=== PATIENT | female | born 2000 | race Caucasian/White ===

== ENCOUNTER 2024-01-01 10:18 | Outpatient (CLI) | payer BC, SELFPAY ==
--- NOTE | ~2024-01-01 | US_ITS ---
EXAMINATION: US OB <= 14 weeks fetus DATE: 01/01/2024 10:43 INDICATION: Uncertain dating of a second trimester TECHNIQUE: Real-time ultrasound of the pelvis was performed. The interpreting radiologist was not pre sent for the study. COMPARISON: None. FINDINGS: There is a single living fetus in vertex presentation. The placenta is posterior with caudal margin 3.3 cm from the internal cervical os. The region of the external cervical os is not clearly visualize d precluding accurate measurement of cervical length. heart rate is 150 beats per minute (bpm). The amniotic fluid volume is subjectively normal. The following biometric data were obtained: BPD: 3.2 cm -> 15 weeks 6 days Head circumference: 11.7 cm -> 15 weeks 5 days Abdominal circumference: 9.6 cm -> 15 weeks 5 days Femur length: 1.7 cm -> 15 weeks 0 days These measurements are concordant. Head circumference to abdominal circumference ratio: 1.22 (normal range 1.06-1.36). Estimated weight: 124 g (+/-) 19 g or 4 oz. (+/-) 1 oz. IMPRESSION: 1. Single living fetus in vertex presentation with heart rate of 150 bpm. 2. Gestational age by ultrasound of 15 weeks 4 day(s) +/- 1 week(s) 1 day(s) with ultrasound estimate d date of delivery (ODILIA) of the. Estimated weight is 12th percentile by Hadlock criteria w hen 06/17/2024 is used as the ODILIA. Please correlate with clinical information or earlier ultrasounds fo r most accurate ODILIA. Reviewed, dictated and finalized at location B. TAILER IMPRESSION: 1. Single living fetus in vertex presentation with heart rate of 150 bpm. 2. Gestational age by ultrasound of 15 weeks 4 day(s) +/- 1 week(s) 1 day(s) wi th ultrasound estimated date of delivery (ODILIA) of the. Estimated jose ght is 12th percentile by Hadlock criteria when 06/17/2024 is used as the ODILIA. Pl ease correlate with clinical information or earlier ultrasounds for most accura te ODILIA.
== END 2024-01-01 10:19 | disposition home or self-care (01) ==
LOC: MICIMG 10:19
PROVIDERS: PCP Nurse Practitioner Women's Health; Visit Provider Nurse Practitioner Women's Health
DX: Z36.87 Encounter for antenatal screening for uncertain dates (principal); Z3A.15 15 weeks gestation of pregnancy
CPT/HCPCS: 76801

== ENCOUNTER 2024-02-13 13:18 | Outpatient (CLI) | payer BC, MEDICAID, SELFPAY ==
--- NOTE | ~2024-02-13 | US_ITS ---
EXAMINATION: US OB /maternal detail DATE: 02/13/2024 13:55 INDICATION: survey TECHNIQUE: Multiple obstetric sonographic images performed. FINDINGS: No prior studies for comparison. There is a single living fetus in vertex presentation. The placenta is posterior without placenta pr evia. Amniotic fluid volume is subjectively normal. Cervical length is 3.4 cm. Cervical length is 3.4 cm. cardiac activity and movement is noted with a heart rate of 139 beats per minute. The following anatomy was identified as normal: 4 chamber heart 3 vessel cord cord insertion kidneys urinary bladder stomach spine diaphragm ventricles cisterna magna cerebellum The following biometric data were obtained: BPD: 52mm corresponds to gestational age 21 weeks 6 days. Head circumference: 195 mm corresponds to gestational age 21 weeks 5 days. Abdominal circumference: 163 mm corresponds to gestational age 21 weeks 2 days. Femur length: 35 mm corresponds to gestational age 20 weeks 6 days. Head circumference to abdominal circumference ratio: 1.2 (normal range for expected gestational age i s 1.06-1.24). Estimated weight: 406 grams +/- 61 grams using Hadlock method, 20.2%. IMPRESSION: 1: Single living intrauterine with an estimated gestational age of 21weeks 5days by initial ultrasound measurements, with an EDC of 06/20/2024 in vertex presentation. 2. Normal survey. Reviewed, dictated and finalized at location B. NCE EDUCATION PROFESSOR IMPRESSION: 1: Single living intrauterine with an estimated gestational age of 21 weeks 5days by initial ultrasound measurements, with an EDC of 06/20/2024 in marie pati presentation. 2. Normal survey.
== END 2024-02-13 13:19 | disposition home or self-care (01) ==
PROVIDERS: PCP Obstetrics & Gynecology Gynecology; Visit Provider Obstetrics & Gynecology Gynecology
DX: Z36.9 Encounter for antenatal screening, unspecified (principal); Z3A.21 21 weeks gestation of pregnancy
CPT/HCPCS: 76805

== ENCOUNTER 2024-04-10 13:40 | Observation (INO) | payer BC, MEDICAID, SELFPAY ==
--- OUTSIDE RECORDS SUMMARY | 2024-04-10 13:49 | XMS_ITS | Referral Summary ---
Author Organization [facility] Address [address] [place] [address] Care Team Providers Care Electrical Machinist Name Role Phone Komal Flores MD Primary Care Provider [phone] Source Comments [facility],non-owned Affiliates and Associated Physician Practices is amultiple site organization consisting of ambulatory clinics and hospital sitesin [place] and [place]. This disclosure is being madepursuant to the Care Everywhere program and may not contain all information available regarding this patient. Last updated 17.[facility] Allergies Active Allergy Reactions Criticality Noted Date Comments Bee Venom Skin Reactions 06/04/2013 Increased redness at site Dexmethylphenidate Other 06/04/2013 Red streaks on face, increased heart rate, facial swelling Medications * Be aware that medications may not be up to date on this document. Alwaysverify current medications with the patient. Medication Sig Dispensed Refills Start Date End Date Status acyclovir (ZOVIRAX) 400 MG tabletIndications:Rash and other nonspecific skin eruption Take 1 tablet by mouth three times a day for 5 days then take one tablet daily x 2 months. 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 (possibly neomycin specimens for viral cx 2 (Jan 2013 and Apr 2013) 06/04/13: HSV PCR and Cx neg no FH cold sores Social History Tobacco Use Types Packs/Day Years Used Date Smoking Tobacco: Never Assessed Sex and Gender Information Value Date Recorded Sex Assigned at Not on file Gender Identity Not on file Sexual Orientation Not on file Last Filed Vital Signs Vital Sign Reading Time Taken Comments Blood Pressure - - Pulse - - Temperature - - Respiratory Rate - - Oxygen Saturation - - Inhaled Oxygen Concentration - - Weight 38.9 kg (85 lb 12.1 oz) 06/04/2013 1:21 P M CDT Height 148.5 cm (4' 10.47 ) 06/04/2013 1:21 PM C DT Body Mass Index 17.64 06/04/2013 1:21 PM CDT Plan of Treatment Not on file Care Teams Electrical Machinist Relationship Specialty Start Date End Date Komal Flores MD [address] [place] [address] PCP - General Pediatrics 06/04/13
--- OUTSIDE RECORDS SUMMARY | 2024-04-10 13:49 | XMS_ITS | Clinical Summary ---
Author Organization [facility] Address [address] [place] [address] Care Team Providers Care Development Associate Name Role Phone Komal Flores MD Primary Care Provider [phone] Source Comments [facility],non-owned Affiliates and Associated Physician Practices is amultiple site organization consisting of ambulatory clinics and hospital sitesin [place], [place], [place] and [place]. This disclosure is being madepursuant to the Care Everywhere program and may not contain all information available regarding this patient. Last updated 17.[facility] Allergies Active Allergy Reactions Criticality Noted Date [...] and Cx neg no FH cold sores Family History Medical History Relation Name Comments Asthma Maternal Grandmother Asthma Mother Miscarriage Mother Acne half-brother Asthma half-brother Eczema half-brother Relation Name Status Comments Maternal Grandmother Mother half-brother Social History Tobacco Use Types Packs/Day Years [...] 06/04/2013 1:21 PM CDT Plan of Treatment Health Maintenance Due Date Last Done Comments PAP SMEAR 2002 HIV SCREENING 2017 HPV VACCINE (1 - 3-dose series) 2017 CHLAMYDIA/GONORRHEA SCREENING 2018 MENINGOCOCCAL (Group B) VACC INE (1 of 2 - Standard) 2018 HEPATITIS C SCREENING 12/03/2020 DTAP/TDAP/TD VACCINES (1 - Tdap) 2021 HEPATITIS B VACCINE (1 of 3 - 19+ 3-dose series) 2021 COVID-19 VACCINE (1 - 2023-2 5 season) 2023 INFLUENZA VACCINE (#1) 2023 DEPRESSION SCREENING 02/11/2024 ZOSTER VACCINE (1 of 2) 2052 HIB VACCINE Aged Out No longer eligi ble based on patient's age to complete this topic MENINGOCOCCAL VACCINE Aged Out No rashida vincenzo eligible based on patient's age to complete this topic PNEUMOCOCCAL VACCINE Aged Out No long er eligible based on patient's age to complete this topic Care Teams Development Associate Relationship Specialty Start Date End Date Komal Flores MD [address] [place] [address] PCP - General Pediatrics 06/04/13
--- OUTSIDE RECORDS SUMMARY | 2024-04-10 13:49 | XMS_ITS | Clinical Summary ---
Author Organization [facility] Address [address] [place] [address] Phone Care Team Providers Care Family And Consumer Education Teacher Name Role Phone Mitchel Woods MD Primary Care Provider [phone] Social History Tobacco Use Types Packs/Day Years Used Date Smoking Tobacco: Never Assessed Comments Unknown Sex and Gender Information Value Date Recorded Sex Assigned at Not on file Legal Sex Female 7:00 PM CDT Gender Identity Not on file Sexual Orientation Not on file Last Filed Vital Signs Vital Sign Reading Time Taken Comments Blood Pressure 130/75 10/15/2021 8:43 PM CDT Pulse 83 10/15/2021 7:03 PM CDT Temperature 35.8 C (96.4 F) 10/15/2021 7:03 PM CDT Respiratory Rate 20 10/15/2021 7:03 PM CDT Oxygen Saturation 100% 10/15/2021 7:03 PM CDT Inhaled Oxygen Concentration - - Weight 45.8 kg (101 lb) 10/15/2021 7:03 PM CDT Height 157.5 cm (5' 2 ) 10/15/2021 7:03 PM CDT Body Mass Index 18.47 10/15/2021 7:03 PM CDT Plan of Treatment Not on file Care Teams Family And Consumer Education Teacher Relationship Specialty Start Date End Date Mitchel [place] [address] PCP - General Internal Medicine 10/15/21
--- OUTSIDE RECORDS SUMMARY | 2024-04-10 13:49 | XMS_ITS | Clinical Summary ---
Author Organization [facility] Address [address] [place] [address] Care Team Providers Care Child & Adolescent Psychiatrist Name Role Phone Carlotta Degroot NP Primary Care Provider [phone] Allergies Active Allergy Reactions Criticality Noted Date Comments Adhesive Tape-Silicones Rash Medium 12/11/2022 Dexmethylphenidate Other (See comments),Unknown,R [place] High 06/04/2013 Red streaks on face, increased heart rate, facial swelling Reaction: UNKNOWN, Venom-Honey Bee Unknown 06/04/2013 Increased redness at site Venom-Wasp Hives Medium 03/14/2018 Medications QUEtiapine (SEROquel) 25 mg tablet Take 1 tablet (25 mg total) by mouth nightly at bedtime. 06/10/2023 Active famotidine (PEPCID) 20 mg tablet Take 1 tablet (20 mg total) by mouth 2 (two) times a day 60 tablet 2 11/19/2023 Active promethazine (PHENERGAN) 25 mg tablet Take 1 tablet (25 mg total) by mouth every 6 (six) hours as needed for nausea or vomiting 30 tablet 11/19/2023 Active aspirin 81 mg chewable tablet Take 1 tablet (81 mg total) by mouth daily 30 tablet 11 12/02/2023 12/02/19 25 Active Active Problems Problem Noted Date Diagnosed Date Marijuana use 12/15/2023 Overview (12/15/2023): 12/15/23- uds positive Low grade squamous intraepit h lesion on cytologic smear cervix (lgsil) 12/15/2023 Overview (12/15/2023): 12/15/23- will plan to repeat pp Encounter for supervision of normal first in first trimester 12/02/2023 Tobacco use 12/02/2023 Assessment & Plan (12/02/2023 3:29 PM CDT): The patient was encouraged to stop smoking. Techniques for smoking cessation were discussed to the patient's level of interest. ADHD 02/21/2023 Anxiety 02/21/2023 Chest pain 02/21/2023 Bipolar disorder 02/21/2023 Overview (12/02/2023): She states she doesn't sleep when she is manic, spends money, very irritable, talks fast, lots of sex. H/o SI She goes through Carlotta Degroot at [facility]. SVT (supraventricular tachycardia) 10/16/2022 Assessment & Plan (12/02/2023 3:22 PM CDT): She has a h/o palpations. She has done holter monitor before The last was about 3 months ago Will see if she can see Dr. Leal during If not, will refer to [facility]. Manic behavior 10/17/2021 Assessment & Plan (12/23/2023 2:19 PM GARDEN EQUIPMENT MECHANIC): She is going to continue on with her Seroquel She was encouraged to continue to follow with her psychiatric provider in case she worsens during Assessment & Plan (10/17/2021 9:54 PM CDT): Agitated, fidgeting, cannot sit, pacing exam room, tearful at times, stream of thoughts talking. Discussed her medications--states that she has not taken in over 1 year. Does not wish to re-engage nor return to psych. Difficult to converse as she is perseverating on vaginal bleeding (most like menses). Very difficult to converse. Verified that she has appt w/SUPERVISOR HARD CANDY 11/20/21. Verified that she will go to our lab as she leaves the appointment and we will have results today or tomorrow. Verified phone number to call results. Severe episode of recurrent major depressive disorder, without psychotic features 03/13/2018 Assessment & Plan (11/02/2020 4:39 PM CDT): Seeing new psychiatrist, Jose F Amaya-had first OV today. Struggles with medication compliance, forgets to take medications. Lack of motivation for school. Continues seeing counselor and feels she benefits from counseling sessions. Denies self harm or thoughts of SI/HI. Assessment & Plan (11/01/2019 9:52 AM CDT): No longer seeing counselor but still sees staff psychologist Adair Yun at [facility] in [place]. MOP unable to control Shauna at this time during appt. Not tearful but flat/blunt affect. Denies thoughts of SI/HI on direct questioning. Assessment & Plan (10/09/2018 10:12 AM CDT): No longer seeing counselor. Still seeing staff psychologist: Adair Yun at [facility] in [place]. Difficulty taking medications per MOP confidentially on phone during appt. Eating disorder, unspecified 08/08/2015 Assessment & Plan (12/02/2023 3:28 PM CDT): Pt denies having this Estimated Date of Delivery Comme nts Yes 06/18/2024 Based on last me nstrual period of 09/12/2023 (Approximate) Resolved Problems Problem Noted Date Diagnosed Date Resolved Date Menorrhagia with regular cycle 08/13/2023 12/02/2023 Assessment & Plan (08/13/2023 12:54 PM CDT): Discussed cycles at length. Recommend Ibuprofen 600 mg q6h 24-48 hours before onset of cycles through day 3 of cycle. She is not interested in hormonal intervention at this time. Discussed warning signs including saturating a pad/hr or passing large clots. Await pelvic ultrasound. Irregular periods/menstrual cycles 11/01/2021 12/02/2023 Assessment & Plan (11/01/2021 2:05 PM CDT): Repeat beta qaunt today. If negatvie, encouraged patient to start BCP as directed for prevention. Continue condom use. Patient aware that serum hCG testing and pelvic ultrasound should not be used as primary means to rule out . Urine test negative 10/16/2021 12/02/2023 Assessment & Plan (10/17/2021 9:49 PM CDT): Concerned that the 2 urine tests are false. Wants blood test. Does not mychart. Verified phone number. Reviewed/discussed ER notes/results from [facility] ER. Stressed need to void after intercourse, push water intake, take/complete abx as ordered. To call/rtc if no improvement w/abx. Complete antibiotic as prescribed Do not hold your urine. Urinate as soon as you feel the need to go Drink plenty of water and fluids. Limit alcohol, caffeine, and citrus juices- They will irritate the bladder Wipe front to back & wear cotton underwear Try emptying your bladder before and after having sexual intercourse If you have severe back, flank, or groin pain with nausea/vomiting or are unable to get comfortable from the pain, please call/rtc or go to ER for further treatment Tylenol/Motrin for pain Hematuria 10/16/2021 12/02/2023 Assessment & Plan (10/17/2021 9:54 PM CDT): Concerned that the 2 urine tests are false. Wants blood test. Does not mychart. Verified phone number. Has not yet started macrobid. Will wait until blood tests are returned. Reviewed need to take abx & push fluids. Body mass index (BMI) less than 19 10/16/2021 12/02/2023 Assessment & Plan (10/17/2021 9:55 PM CDT): BMI=17.41. BMI is acceptable for this patient. Difficult to discuss diet at this time as she cannot discuss anything but vaginal bleeding & possible . Bee sting 11/02/2020 10/17/2021 Assessment & Plan (11/02/2020 4:32 PM CDT): May use topical hydrocortisone cream. Suggested patient take zyrtec daily for the next few days. Reviewed secondary signs of infection or worsening reaction. Common wart 05/08/2020 12/02/2023 Assessment & Plan (05/08/2020 10:39 AM CDT): Cryotherapy to L lateral elbow. Tolerated well. Covered loosely w/bandaid. Aware to not pick at skin/wart. Reviewed red flags. BMI 21.0-21.9, adult 11/01/2019 022 Assessment & Plan (11/02/2020 4:40 PM CDT): Discussed healthy diet and importance of regular physical activity. Assessment & Plan (05/08/2020 10:11 AM CDT): Discussed healthy diet and importance of regular physical activity. BMI is acceptable for this patient. Assessment & Plan (11/01/2019 9:52 AM CDT): Discussed healthy diet and importance of regular physical activity. BMI is acceptable for this patient. Need for Menactra vaccination 11/01/2019 05/08/2020 Assessment & Plan (11/01/2019 9:51 AM CDT): Initially walked out of exam room prior to getting vaccination. MOP went to get Shauna & made her come back. Defiant w/injection. MOP standing in front of door prior to injection. Viral URI with cough 12/25/2018 020 Assessment & Plan (12/25/2018 8:37 AM GARDEN EQUIPMENT MECHANIC): Rapid flu swab: NEGATIVE This looks viral in nature and should run its course without antibiotics in 7-10 days. You will need to take over the counter medications: Advise to use Mucinex and nasal saline to help with congestions and mucus. Add flonase 1 spray per nostril daily for the next 2 weeks. Add Claritin, Mary Ellen or Zyrtec daily for nasal drip Mucinex for chest congestion Sudafed for head/nasal congestion, Dayquil/delsym for cough Drink plenty of fluids. May take Tylenol for pain. Contact the office if not better in a few days or if getting worse. If symptoms worsen or you experience shortness of breath, return to clinic or go to Er. Refused influenza vaccine 12/24/2018 Assessment & Plan (11/02/2020 4:17 PM CDT): Refuses influenza vaccine Assessment & Plan (05/08/2020 9:22 AM CDT): Discussed and the patient refuses immunization today. Educated regarding the need to vaccinate for personal protection and to limit the viruses in the community to protect those most vulnerable. Assessment & Plan (10/31/2019 9:31 PM CDT): Discussed and the patient refuses immunization today. Educated regarding the need to vaccinate for personal protection and to limit the viruses in the community to protect those most vulnerable. Assessment & Plan (12/25/2018 8:37 AM GARDEN EQUIPMENT MECHANIC): Discussed and the patient refuses immunization today. Educated regarding the need to vaccinate for personal protection and to limit the viruses in the community to protect those most vulnerable. Flu-like symptoms 12/24/2018 10/31/2019 Assessment & Plan (12/25/2018 8:37 AM GARDEN EQUIPMENT MECHANIC): NEGATIVE rapid flu swab in office. School physical exam 10/09/2018 021 Assessment & Plan (10/31/2019 9:32 PM CDT): Preventive exam; reviewed recommended preventive screenings and vaccinations. Extensive discussion regarding HPV vaccination. Encouraged annual flu vaccine. Wear sunscreen/protective clothing when outdoors. Avoid tobacco, alcohol, and illicit drugs. Always wear a seatbelt. Reviewed safe sex practices. Anticipatory guidelines for teenagers: -healthy dietary habits. -reduction of injuries through helmets for bicycle/motorcycle and car seatbelts -regular exercise: 20-30 minutes per day at minimum -good sleep habits: optimal sleep for teen is 8-10 hours per night -sun protection: sunscreen, long sleeves, hats when out in sun. -responsible sexual behaviors: abstinence, condoms. Safe versus safer sex. -avoidance of tobacco, alcohol and illegal substances. -social media: avoid online behaviors that have negative consequences (sexting, sharing personal information/pictures with strangers) -strategies to deal with bullying. Assessment & Plan (10/09/2018 10:16 AM CDT): School physical form completed. See scanned form. No immunizations at this time. Here w/step-father but MOP Torres Dang on phone. 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 (possibly neomycin specimens for viral cx 2 (Jan 2013 and Apr 2013) 06/04/13: HSV PCR and Cx neg no FH cold sores Encounters Date Type Department Care Team Description 03/28/2024 12:45 PM GARDEN EQUIPMENT MECHANIC Office Visit [facility] [place] [address] [place] [address] Jodie Pérez, CONCRETE FENCE BUILDER COVID (Primary Dx) 02/26/2024 2:50 PM GARDEN EQUIPMENT MECHANIC Lab [facility] [address] [place] [address] from Last 3 Months Immunizations Immunization Administration Dates Next Due DTaP 12/24/2007,02/24/2004 DTaP / Hep B / IPV 06/13/2003,04/20/2003, 004 DTaP, Unspecified 12/24/2007, 5,06/13/2003, 004,02/16/2003 Hep A, Pediatric 02/26/2006,07/11/2005 Hep A, Unspecified 02/26/2006,07/11/2005 Hep B, Adolescent or Pediatric 2002 Hep B, Unspecified 06/13/2003, 4,02/16/2003, 003 HiB 02/24/2004, 4,04/20/2003, 004 Hib (HbOC) 02/24/2004, 4,04/20/2003, 004 IPV 12/24/2007, 4,04/20/2003, 004 Influenza, Split 03/17/2012 Influenza, Unspecified 09/02/2022(Deferr ed: Patient Refused),11/10/2020(Deferred: Patient Refused),05/08/2020(Deferred: Patient Refused),11/11/2019(Deferred: Patient Refused),02/10/2019(Deferred: Patient Refused),12/24/2018(Deferred: Patient Refused),12/24/2018(Deferred: Patient Refused),02/10/2018(Deferred: Patient Refused),12/16/2017(Deferred: Patient Refused),10/23/2017(Deferred: Patient Refused),10/23/2017(Deferred: Patient Refused),02/12/2016(Deferred: Patient Refused),02/12/2016(Deferred: Patient Refused),02/12/2016(Deferred: Patient Refused),02/11/2016(Deferred: Patient Refused) MMR 2006,12/20/2003 Meningococcal ACWY, Unspecified 09/16/2014 Meningococcal Conjugate (Menveo) 11/01/2019 Meningococcal MCV4P (Menactra) 09/16/2014 Pneumococcal Conjugate 7-Valent 02/24/2004,04/19,02/16/2003 Pneumococcal Conjugate, Unspecified 02/24/2004,0 04/20/2003,02/16/2003 Tdap 09/07/2013 Varicella 2006,12/20/2003 Surgical History Surgery Date Site/Laterality Comments TONSILLECTOMY AND ADENOIDECTOMY WISDOM TOOTH EXTRACTION Medical History Medical History Date Comments ADHD (attention deficit hype ractivity disorder) Bipolar affective (HCC) Head lice infestation 03/13/2018 Rash and other nonspecific s kin eruption 06/04/2013 Formatting of this note migh t be different from the original. 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 No 12/02/2023 Within the last year, have y ou been humiliated or emotionally abused in other ways by your partner or ex-partner? No Within the last year, have y ou been kicked, hit, slapped, or otherwise physically hurt by your partner or ex-partner? No 12/02/2023 Within the last year, have y ou been raped or forced to have any kind of sexual activity by your partner or ex-partner? No 12/02/2023 AUDIT-C Answer Date Recorded Q1: How often do you have a drink containing alc ohol? Never 09/02/2022 Average Number of Drinks Not on file 023 Frequency of Binge Drinking Not on file 08/11 PHQ-2 Answer Date Recorded PHQ-2 Total Score (If total score is 3 or more points, staff should administer the PHQ-9) 0 09/02/2022 Personal Safety Answer Date Recorded Have you ever been in or are you currently in a harmful physical or emotional relationship or is someone making you feel afraid or unsafe? Denies 11/21/2023 Estimated Date of Delivery Comme nts Yes 06/18/2024 Based on last me nstrual period of 09/12/2023 (Approximate) Sex and Gender Information Value Date Recorded Sex Assigned at Not on file Legal Sex Female 11:47 AM GARDEN EQUIPMENT MECHANIC Gender Identity Female 11/15/2021 7:51 PM CDT Sexual Orientation Straight 11/15/2021 7: 51 PM CDT Obstetrics History Para Term AB IAB SAB Ectopic Multiple Livin g Live Births 1 0 0 0 0 0 0 0 0 0 0 Date Outcome GA Total Labor Labor/2nd/3rd Weight Sex Type Anes PTL Natalia A1 A5 Name Clin Current Summary Episode Dates Number of Fetuses Estimated Date of Delivery 11/17/2023 - Present (04/10/2024) 1 06/18/2024 (set by Cristine Tadeo MA on 12/02/2023 based on Last Menstrual Period on 09/12/2023 (Approximate)) Dating Summary Based On ODILIA GA Diff Last Menstrual Period on 09/12/2023 (Approximate ) 06/18/2024 Working Ultrasound on 11/14/2023 06/19/2024 -1d GA:8w6d Overview and Plan :[place] Support person:Antonio CEDENO Delivery Plans Post-Delivery Plans Planned delivery method:Vaginal Feeding intentions:Breast Milk Acceptable blood products:All Overview ACP- Torres Dang- mom Antonio Hank- PAO Vitals Pregravid Weight Height TWG (As of 04/10/2024) Pregrav id BMI 160 cm (5' 3 ) Notes Progress Notes - Initial Pre - 12/02/2023 - GA:11w4d 12/02/2023 - 11w4d - Vaishali Drake MD Images from the original note were not included. Initial OB Visit Initial Visit (Patient is here for initial OB visit. Patient is 11.5 weeks. /Patient stated she did go the ER at [facility] 2 weeks ago for an elevated HR. At the ER they did recommend that she see one and that she wear a holter monitor. Patient states she does have a heart condition called SVT. Patient states since that time she has felt fine. ) Subjective: Shauna Harper is a 23 y.o., at 11w3d , based on 1st trimester U/S for initial visit. Morning sickness is better She is still taking her seroquel Menstrual History: Patient's last menstrual period was 09/12/2023 (approximate). Sexual History: OB History 1 Para 0 Term 0 0 AB 0 Living 0 SAB 0 IAB 0 Ectopic 0 Multiple 0 Live Births 0 # Outcome Date GA Labor/2nd Weight Sex Type Anes PTL Lv A1 A5 1 Current Objective: BP 118/70 (BP Location: Left arm, Patient Position: Sitting) Ht 160 cm (5' 3 ) Wt 118 lb 12.8 oz (53.9 kg) LMP 09/12/2023 (Approximate) BMI 21.04 kg/m Physical OB Exam: Last filed by Vaishali Drake MD on 12/23/2023 2:19 PM General Physical Exam HEENT: normal Heart: normal Skin: normal Thyroid: normal Lungs: normal Extremities: normal Lymph Nodes: normal Breasts: normal Neurological: normal grossly Abdomen: normal Pelvic Exam Vulva: normal Vagina: normal Cervix: normal Uterus: 10-12 weeks Adnexa: normal Rectum: normal Spines: average Subpubic Arch: normal See flow sheet for gestation -specific examination and vitals. Assessment: Patient is a 23 y.o., at 11w5d, size = dates. Diagnoses and all orders for this visit: Encounter for supervision of normal first in first trimester (Primary) - Vitamin D 25 hydroxy; Future - Varicella Zoster IgG antibody Blood; Future - Type and screen; Future - Rubella IgG antibody Blood; Future - RPR Blood; Future - HIV 1/2 Antibody plus p24 Antigen Blood; Future - Hepatitis C antibody Blood; Future - Hepatitis B Surface Antigen Blood; Future - CBC with auto differential; Future - Drug Monitoring with Confirmation, Urine; Future - Urine culture Urine, clean voided; Future - Pap, reflex HPV; Future - N. gonorrhoeae/C. trachomatis Amplification Thin prep-Endocervical; Future SVT (supraventricular tachycardia) (HCC) Assessment & Plan: She has a h/o palpations. She has done holter monitor before The last was about 3 months ago Will see if she can see Dr. Leal during If not, will refer to [facility]. Other disorder of eating Assessment & Plan: Pt denies having this Tobacco use Assessment & Plan: The patient was encouraged to stop smoking. Techniques for smoking cessation were discussed to the patient's level of interest. Manic behavior (HCC) Assessment & Plan: She is going to continue on with her Seroquel She was encouraged to continue to follow with her psychiatric provider in case she worsens during Other orders - aspirin 81 mg chewable tablet; Take 1 tablet (81 mg total) by mouth daily - N. gonorrhoeae/C. trachomatis Amplification - Drug Monitoring Template Plan: -dating US completed previously -PNL ordered. We will discuss at her next visit. -To start BASA - std testing done today. The results will go to the portal. If she doesn't see them in a week, to call the office. -NOB packet reviewed with the pt and her questions were answered. They would like to do cell free dna testing and carrier screening. To gain between 25-35 pounds for the Diet and exercise discussed. To vitamins once morning sickness is better. Call schedule reviewed. Visits with Mariam discussed. Follow up in 4 weeks. Vaishali Drake MD 12/02/2023 EN EQUIPMENT MECHANIC Progress Notes - Clinical [place] pport - 11/19/2023 - GA:9w5d 11/19/2023 - 9w5d - Kerry Shankar MA Pt came in for nurse visit to check weight and ketones. Ketones were negative and weight was 119.6 lb. Previous wt was 120 lb. Pt requesting phenergan. Pt advised to take 20 mg of OTC Pepcid to help with dry heaving. See other telephone encounters and messages. Last Filed Vital Signs Vital Sign Reading Time Taken Comments Blood Pressure 116/64 03/28/2024 12:44 PM GARDEN EQUIPMENT MECHANIC Pulse 79 03/28/2024 12:44 PM GARDEN EQUIPMENT MECHANIC Temperature 36.6 C (97.9 F) 03/28/2024 12:44 PM GARDEN EQUIPMENT MECHANIC Respiratory Rate 18 03/28/2024 12:4 4 PM GARDEN EQUIPMENT MECHANIC Oxygen Saturation 99% 03/28/2024 12: 44 PM GARDEN EQUIPMENT MECHANIC Inhaled Oxygen Concentration - - Weight 61.1 kg (134 lb 12.8 oz) 025 12:44 PM GARDEN EQUIPMENT MECHANIC Height 157.5 cm (5' 2 ) 03/28/2024 12:4 4 PM GARDEN EQUIPMENT MECHANIC Body Mass Index 24.66 03/28/2024 12:44 PM GARDEN EQUIPMENT MECHANIC Plan of Treatment Health Maintenance Due Date Last Done Comments HPV Vaccines (1 - 3-dose series) 2017 Meningococcal B Vaccine (1 o f 2 - Standard) 2018 Regular Well Visit/Exam 18-64 2020 Depression Screening 09/03/2023 09/02/2022, 11/01/2021, 10/16/2021, Additional history exists DTaP/Tdap/Td Vaccine (7 - Td or Tdap) 09/08/2023 09/07/2013, 12/24/2007, 12/24/2007, Additional history exists Covid-19 Vaccine (2 - 2023-2 5 season) 2023 09/17/2020 Influenza Vaccine (#1) 2023 03/17/2012 Cervical Cancer Screening 12/01/2024 12/02/2023 Chlamydia and Gonorrhea (GC/ CT) Screening 12/01/2024 12/02/2023, 08/13/2023, 11/13/2021, Additional history exists Hepatitis B Screening Completed 06/13/2003 , 06/13/2003, 04/20/2003, Additional history exists Pneumococcal vaccine <65 Completed 005, 02/24/2004, 04/20/2003, Additional history exists Varicella Vaccines Completed 2006, 12/20/2003 Meningococcal Vaccine Completed 11/01/2019 , 09/16/2014, 09/16/2014 Hepatitis C Screening Completed 02/26/2024 Procedures Procedure Name Priority Date/Time Associated Diagnosis Comments POC INFLUENZA A/B, COVID-19 ANTIGEN Routine 03/28/2024 1:01 PM GARDEN EQUIPMENT MECHANIC COVID POCT RAPID STREP Routine 03/28/2024 1:01 PM GARDEN EQUIPMENT MECHANIC COVID ANTIBODY SCREEN Routine 02/26/2024 2:51 PM GARDEN EQUIPMENT MECHANIC DIFFERENTIAL AUTO Routine 02/26/2024 2:5 1 PM GARDEN EQUIPMENT MECHANIC FERRITIN Routine 02/26/2024 2:51 PM GARDEN EQUIPMENT MECHANIC HEMOGLOBIN A1C Routine 02/26/2024 2:51 PM GARDEN EQUIPMENT MECHANIC VITAMIN D 25 HYDROXY Routine 02/26/2024 2:51 PM GARDEN EQUIPMENT MECHANIC ABO/RH Routine 02/26/2024 2:51 PM GARDEN EQUIPMENT MECHANIC CBC WITH AUTO DIFFERENTIAL Routine 02/26/2024 2:51 PM GARDEN EQUIPMENT MECHANIC HEPATITIS C ANTIBODY Routine 02/26/2024 2:51 PM GARDEN EQUIPMENT MECHANIC HIV 1/2 ANTIBODY PLUS P24 ANTIGEN Routine 02/26/2024 2:51 PM GARDEN EQUIPMENT MECHANIC RUBELLA IGG Routine 02/26/2024 2:51 PM GARDEN EQUIPMENT MECHANIC HEPATITIS B SURFACE ANTIGEN Routine 02/26/2024 2:51 PM GARDEN EQUIPMENT MECHANIC RPR Routine 02/26/2024 2:51 PM GARDEN EQUIPMENT MECHANIC N. GONORRHOEAE/C. TRACHOMATIS AMPLIFICATION Routine 12/02/2023 4:42 PM CDT PAP, REFLEX HPV Routine 12/02/2023 4:42 PM CDT Encounter for supervision of normal first in first trimester from Last 3 Months or Most Recently Relevant to Health Maintenance Results * (ABNORMAL) POC Influenza A/B, COVID-19 antigen (03/28/2024 1:01 PM GARDEN EQUIPMENT MECHANIC) Influenza A Ag, POC Negative Negative [facility] Influenza B Ag, POC Negative Negative [facility] COVID-19 Ag POC Positive(A) Presumptive Negative, Invalid [facility] Nasal 03/28/2024 1:01 PM GARDEN EQUIPMENT MECHANIC Jodie Pérez CONCRETE FENCE BUILDER POINT OF CARE TEST ORDERABLES Final Result Performing Organization Address City/[facility] Co de Phone Number [place] [address] [place] [address], [place] * POCT rapid strep A (03/28/2024 1:01 PM GARDEN EQUIPMENT MECHANIC) Rapid Strep A, POC Negative Negative [facility] Swab 03/28/2024 1:01 PM GARDEN EQUIPMENT MECHANIC Jodie Pérez CONCRETE FENCE BUILDER POINT OF CARE TEST ORDERABLES Final Result Performing Organization Address [facility] de Phone Number [place] [address] [place] [address], [place] * (ABNORMAL) Differential, auto (02/26/2024 2:51 PM GARDEN EQUIPMENT MECHANIC) Pathologist [facility] Neutrophil abs 12.3(H) 1.5 - 6.5 K/cumm Comment:Testing performed by : [facility], [address] [place] [address]., [address] Imm gran abs 0.4(H) 0.0 - 0.1 K/cumm [facility] ([place]) Comment:Testing performed by : [address], [address] Lymphocyte abs 2.1 0.8 - 3.3 K/cumm [facility] ([place]) Comment:Testing performed by : [facility], [address] [place] [address], [address] Monocyte abs 0.6 0.2 - 0.8 K/cumm [facility] ([place]) Comment:Testing performed by : [address], [address] Eosinophil abs 0.2 0.0 - 0.5 K/cumm [facility] ([place]) Comment:Testing performed by : [address], [address] Basophil abs 0.1 0.0 - 0.1 K/cumm [facility] ([facility]) Comment:Testing performed by : [facility], [address] [place] [address]., [address] Neutrophil pct 78.3 % [facility] ([facility]) Comment: Interpretive Data Percent cell count reference ranges are not reported, since discordance with absolute values may lead to misinterpretation of CBC data. Current Interpretive Data was last revised on 2017. Testing performed by: [facility], [address] [place] [address]., [address] Imm gran pct 2.4 % [facility] ([facility]) Comment: Interpretive Data Percent cell count reference ranges are not reported, since discordance with absolute values may lead to misinterpretation of CBC data. Current Interpretive Data was last revised on 2017. Testing performed by: [address] [address] Lymphocyte pct 13.6 % [facility] ([facility]) Comment: Interpretive Data Percent cell count reference ranges are not reported, since discordance with absolute values may lead to misinterpretation of CBC data. Current Interpretive Data was last revised on 2017. Testing performed by: [facility], [address] [place] [address]., [address] Monocyte pct 4.0 % [facility] ([facility]) Comment: Interpretive Data Percent cell count reference ranges are not reported, since discordance with absolute values may lead to misinterpretation of CBC data. Current Interpretive Data was last revised on 2017. Testing performed by: [address] [address] Eosinophil pct 1.3 % [facility] ([facility]) Comment: Interpretive Data Percent cell count reference ranges are not reported, since discordance with absolute values may lead to misinterpretation of CBC data. Current Interpretive Data was last revised on 2017. Testing performed by: [address] [address] Basophil pct 0.4 % [facility] ([facility]) Comment: Interpretive Data Percent cell count reference ranges are not reported, since discordance with absolute values may lead to misinterpretation of CBC data. Current Interpretive Data was last revised on 2017. Testing performed by: [address] [address] Blood 02/26/2024 2:51 PM GARDEN EQUIPMENT MECHANIC 02/26/2024 2:51 PM GARDEN EQUIPMENT MECHANIC Dorita Valdes MD LAB BLOOD ORDERABLES Fin al Result [facility] ([place]) 1 [facility] [place] [address] * HIV 1/2 Antibody plus p24 Antigen Blood (02/26/2024 2:51 PM GARDEN EQUIPMENT MECHANIC) Pathologist [facility] HIV 1/2 ab + p24 ag Nonreactive Nonreactive Comment: Nonreactive for HIV-1 antigen and HIV-1/HIV-2 antibodies. No laboratory evidence of HIV infection. If acute HIV infection is suspected, consider testing for HIV-1 RNA. Testing performed by: [address], [address] Blood 02/26/2024 2:51 PM GARDEN EQUIPMENT MECHANIC 02/26/2024 2:54 PM GARDEN EQUIPMENT MECHANIC us Dorita Valdes MD LAB MICROBIOLOGY - GENER AL ORDERABLES Final Result Performing Organization Address [facility] Co de Phone Number [facility] ([place]) [address] [place] [address] * (ABNORMAL) CBC with auto differential (02/26/2024 2:51 PM GARDEN EQUIPMENT MECHANIC) [facility] WBC 15.7(H) 3.8 - 9.9 K/cumm Comment:Testing performed by : [facility], [address] [place] [address]., [address] Hgb 10.9(L) 11.9 - 15.5 g/dL [facility] ([facility]) Comment:Testing performed by : [address] [address] Hct 34.0(L) 35.6 - 45.5 % [facility] ([facility]) Comment:Testing performed by : [address] [address] Plt 291 150 - 400 K/cumm [facility] ([facility]) Comment:Testing performed by : [address], [address] MPV 10.3 9.1 - 12.3 fL [facility] ([facility]) Comment:Testing performed by : [address], [address] RBC 3.42(L) 3.90 - 5.20 M/cumm [facility] ([facility]) Comment:Testing performed by : [address], [address] MCV 99.4(H) 81.3 - 96.4 fL [facility] ([facility]) Comment:Testing performed by : [address], [address] MCH 31.9 27.1 - 33.3 pg [facility] ([facility]) Comment:Testing performed by : [address], [address] MCHC 32.1(L) 32.3 - 35.7 g/dL [facility] ([facility]) Comment:Testing performed by : [address], [address] RDW CV 12.9 11.1 - 14.9 % [facility] ([facility]) Comment:Testing performed by : [address], [address] RDW SD 47.0 35.7 - 48.1 fL [facility] ([facility]) Comment:Testing performed by : [address], [address] NRBC abs 0.00 0.00 - 0.01 K/cumm [facility] ([facility]) Comment:Testing performed by : [address], [address] Blood 02/26/2024 2:51 PM GARDEN EQUIPMENT MECHANIC 02/26/2024 2:51 PM GARDEN EQUIPMENT MECHANIC us Dorita Valdes MD LAB BLOOD ORDERABLES Fin al Result [facility] ([place]) 1 [facility] [place] [address] * Hepatitis C antibody Blood (02/26/2024 2:51 PM GARDEN EQUIPMENT MECHANIC) Pathologist [facility] Hep C Ab Nonreactive Nonreactive Comment: Interpretive Data Nonreactive: Antibodies to HCV not detected. Does NOT exclude the possibility of recent exposure to HCV. Equivocal: Equivocal for HCV antibodies. Supplemental molecular testing will be automatically performed to determine infection status in accordance with current CDC screening recommendations. Reactive: Positive for HCV antibodies. This may represent current or past HCV infection. Supplemental molecular testing will be automatically performed to determine current infection status in accordance with current CDC screening recommendations. Interpretive data was last revised on 2019. Testing performed by: [facility], [address] [place] [address], [place]., [address] Blood 02/26/2024 2:51 PM GARDEN EQUIPMENT MECHANIC 02/26/2024 2:54 PM GARDEN EQUIPMENT MECHANIC Dorita Valdes MD LAB MICROBIOLOGY - GENER AL ORDERABLES Final Result Performing Organization Address City/[facility]/ZIP Co de Phone Number [facility] ([place]) 1 [facility] [place] [address] * ABO/Rh (02/26/2024 2:51 PM GARDEN EQUIPMENT MECHANIC) Pathologist [facility] ABO/Rh O Positive Blood 02/26/2024 2:51 PM GARDEN EQUIPMENT MECHANIC 02/27/2024 3:10 PM GARDEN EQUIPMENT MECHANIC Dorita Valdes MD LAB BLOOD BANK TEST ORDE RABLES Final Result Performing Organization Address City/[facility] Co de Phone Number [facility] ([place]) 1 [facility] [place] [address] * Vitamin D 25 hydroxy (02/26/2024 2:51 PM GARDEN EQUIPMENT MECHANIC) Pathologist [facility] Vitamin D 25-OH 46 30 - 80 ng/mL Comment:Testing performed by : [facility], [address] [place] [address], [place]., [address] Blood 02/26/2024 2:51 PM GARDEN EQUIPMENT MECHANIC 02/26/2024 2:54 PM GARDEN EQUIPMENT MECHANIC Dorita Valdes MD LAB BLOOD ORDERABLES Fin al Result [facility] ([place]) 1 [facility] [place] [address] * Rubella IgG antibody Blood (02/26/2024 2:51 PM GARDEN EQUIPMENT MECHANIC) Rubella IgG Reactive Comment: Reactive: Results suggest response to immunization or prior exposure to the virus. Testing performed by: [facility], [address] [place]., [address] Blood 02/26/2024 2:51 PM GARDEN EQUIPMENT MECHANIC 02/27/2024 10:00 AM GARDEN EQUIPMENT MECHANIC us Dorita Valdes MD LAB MICROBIOLOGY - GENER AL ORDERABLES Final Result Performing Organization Address [facility] Co de Phone Number [facility] ([place]) 1 [facility] [place] [address] * RPR Blood (02/26/2024 2:51 PM GARDEN EQUIPMENT MECHANIC) RPR Nonreactive Nonreactive Comment:Testing performed by : [facility], [address] [place] [address]., [address] Blood 02/26/2024 2:51 PM GARDEN EQUIPMENT MECHANIC 02/26/2024 2:53 PM GARDEN EQUIPMENT MECHANIC us Dorita Valdes MD LAB MICROBIOLOGY - GENER AL ORDERABLES Final Result Performing Organization Address City/[facility] Co de Phone Number [facility] ([place]) 1 [facility] [place] [address] * Hepatitis B Surface Antigen Blood (02/26/2024 2:51 PM GARDEN EQUIPMENT MECHANIC) HepBsAg Nonreactive Nonreactive Comment:Testing performed by : [facility], [address] [place] [address], [place]., [address] Blood 02/26/2024 2:51 PM GARDEN EQUIPMENT MECHANIC 02/26/2024 2:54 PM GARDEN EQUIPMENT MECHANIC Dorita Valdes MD LAB MICROBIOLOGY - GENER AL ORDERABLES Final Result [facility] ([place]) [address] [place] [address] * Antibody screen (02/26/2024 2:51 PM GARDEN EQUIPMENT MECHANIC) Lexii, indirect, Gel Interpretation Negative ABSC Blood 02/26/2024 2:51 PM GARDEN EQUIPMENT MECHANIC 02/27/2024 3:10 PM GARDEN EQUIPMENT MECHANIC Dorita Valdes MD LAB BLOOD BANK TEST ORDE RABLES Final Result Performing Organization Address [facility] de Phone Number [facility] ([place]) [address] [place] [address] * Hemoglobin A1c (02/26/2024 2:51 PM GARDEN EQUIPMENT MECHANIC) Hgb A1C 4.9 4.0 - 5.6 % Comment:Testing performed by : [facility], [address] [place] [address]., [address] Estimated Average Glucose 94 mg/dL [facility] ([place]) Comment: The ADA recommends reporting an estimated Average Glucose (eAG) with all Hemoglobin A1c results using the equation derived from a study of 507 normal and diabetic adults. Minority populations were underrepresented and children were not included. (Diabetes Care 31:8407-9108, 2008). The eAG is not equivalent to a fasting glucose. Testing performed by: [facility], [address] [place] [address]., [address] Blood 02/26/2024 2:51 PM GARDEN EQUIPMENT MECHANIC 02/26/2024 2:55 PM GARDEN EQUIPMENT MECHANIC Dorita Valdes MD LAB BLOOD ORDERABLES Fin al Result Performing Organization Address City/[facility] Co de Phone Number [facility] ([place]) [address] [place] [address] * Ferritin (02/26/2024 2:51 PM GARDEN EQUIPMENT MECHANIC) Ferritin 16 15 - 150 ng/mL Comment:Testing performed by : [facility], [address] [facility], [place]., [address] Blood 02/26/2024 2:51 PM GARDEN EQUIPMENT MECHANIC 02/26/2024 2:55 PM GARDEN EQUIPMENT MECHANIC us Dorita Valdes MD LAB BLOOD ORDERABLES Fin al Result [facility] ([place]) 1 [facility] [place], [place] [id number] * (ABNORMAL) Pap, reflex HPV (12/02/2023 4:42 PM CDT) CLINICAL INFORMATION: Stephane Agosto Comment: LMP Stephane Agosto Comment:09/12/2023 Previous Pap Stephane Agosto Comment:NONE GIVEN Prev. Bx Stephane Agosto Comment:NONE GIVEN SOURCE: Stephane Agosto Comment:Cervix, Endocervix Pap, specimen adequacy Stephane Agosto Comment: Satisfactory for evaluation. Endocervical/transformation zone component present. Pap, general categorization (A) Stephane Agosto Comment:Cytology Results: Ep ithelial Cell Abnormality HPV interp (A) Stephane Agosto Comment:Low Grade Squamous I ntraepithelial Lesion (LSIL) COMMENTS Stephane Agosto Comment: This Pap test has been evaluated with computer assisted technology. Suggest clinical correlation and follow-up as clinically appropriate Casino Floor Person [address] Jewel Agosto Comment: PCM, CT(ASCP) CT Screening Location: [place] [address] [place] [address] Pathologist Stephane Agosto Comment: John Ulloa M.D., Board Certified in Anatomic Pathology and Cytopathology. (electronic signature) Comment Stephane Agosto Comment: EXPLANATORY NOTE: The Pap is a screening test for cervical cancer. It is not a diagnostic test and is subject to false negative and false positive results. It is most reliable when a satisfactory sample, regularly obtained, is submitted with relevant clinical findings and history, and when the Pap result is evaluated along with historic and current clinical information. Thin prep 12/02/2023 4:42 PM CDT 12/03/2023 4:33 AM CDT Vaishali Drake MD LAB CYTOLOGY ORDERA BLES Final Result [facility] [address] [place] [address] * N. gonorrhoeae/C. trachomatis Amplification (12/02/2023 4:42 PM CDT) C. trachomatis RNA NOT DETECTED NOT DETECTED [facility] N. gonorrhoeae RNA NOT DETECTED NOT DETECTED [facility] Comment [facility] Comment: The analytical performance characteristics of this assay, when used to test SurePath(TM) specimens have been determined by [employer]. The modifications have not been cleared or approved by the FDA. This assay has been validated pursuant to the CLIA regulations and is used for clinical purposes. For additional information, please refer to https://education.[employer]/faq/RIQ846 (This link is being provided for information/ educational purposes only.) 12/02/2023 4:42 PM CDT 12/03/2023 4:33 AM CDT Vaishali Drake MD LAB MICROBIOLOGY - GENERAL ORDERABLES Final Result Performing Organization Address City/[facility] Co de Phone Number [facility] [address] [place] [address] from Last 3 Months or Most Recently Relevant to Health Maintenance Insurance ANTHEM ACCESS CHOICE BLUE appweevr [place] app[place]evr [place] ANTHEM ACCESS CHOICE [place] CIGNA OPEN ACCESS CIGNA HEALTHCARE Care Teams Child & Adolescent Psychiatrist Relationship Specialty Start Date End Date Carlotta Degroot CONCRETE FENCE BUILDER [address] [place] [address] PCP - General Internal Medicine 11/21/23
--- OUTSIDE RECORDS SUMMARY | 2024-04-10 13:49 | XMS_ITS | Patient Health Record ---
Author Organization [facility] Address [address] [place] [address] Care Team Providers Care Bacteriologist Food Name Role Phone Jimy Amaya Primary Care Provider Allergies Allergen (clinical drug ingredient) Drug/Non Drug Allergy documented on EMR Reaction Allergy Type Onset Date Status dexmethylphenidate Focalin Unknown Drug Allergy Active Bee Sting Unknown Allergy Active Reason For Referral No Information Medications Medication SIG (Take, Route, Fr equency, Duration) Notes Start Date End Date Status OLANZapine 7.5 MG 1 tablet at bedtime. Orally Once a day for 30 day(s) 08/29/2021 Active guanFACINE HCl 2 MG 1 tablet at bedtime Orally Once a day 10/02/2020 Active Ondansetron HCl 4 MG 1 tablet to take wi th olanzapine at bedtime. Orally Once a day for 30 day(s) 08/29/2021 Active busPIRone HCl 30 MG 1 tablet Orally at night 10/02 Active Social History Sex Assigned At : Social History Observation Description Sex Assigned At Female Section Notes: Never . Has 2 step-br others and one half brother. Education: [employer] [place] [employer]. Has been suspended multiple times starting in 7 th grade. Struggles with grades due to missing school. Has IEP. Has a safe plan at school when having anxiety attacks. : no Legal: mother reports hvac/r service technician had been called because she is trying to fight other kids Substance Use: used Marijuana in 7 th grade, last use was yesterday. Smokes day. Trauma: Physical: no Emotional: in relationships. Had been bullied in past Sexual: no Hobbies: likes to Kick Box, state she likes to smoke Never . Has 2 step-br others and one half brother. Education: [place] [employer]. Has been suspended multiple times starting in 7 th grade. Struggles with grades due to missing school. Has IEP. Has a safe plan at school when having anxiety attacks. : no Legal: mother reports hvac/r service technician had been called because she is trying to fight other kids Substance Use: used Marijuana in 7 th grade, last use was yesterday. Smokes day. Trauma: Physical: no Emotional: in relationships. Had been bullied in past Sexual: no Hobbies: likes to Kick Box, state she likes to smoke Never . Has 2 step-br others and one half brother. Education: [employer] [place] [employer] at [employer]. Has been suspended multiple times starting in 7 th grade. Struggles with grades due to missing school. Has IEP. Has a safe plan at school when having anxiety attacks. : no Legal: mother reports hvac/r service technician had been called because she is trying to fight other kids Substance Use: used Marijuana in 7 th grade, last use was yesterday. Smokes day. Trauma: Physical: no Emotional: in relationships. Had been bullied in past Sexual: no Hobbies: likes to Kick Box, state she likes to smoke Problems Problem Type SNOMED Code ICD Code Onset Dates Problem Status W/U Status Risk Notes Problem 887317895 Bipolar disorder, current episode depressed, moderate (F31.32) Active confirmed Problem Bipolar 1 disorder (545802070) Bipolar 1 disorder (F31.9) Active confirmed Problem Bipolar affective disorder, currently manic, moderate (771421834) Bipolar 1 disorder with moderate maryam (F31.12) Active confirmed Plan Of Treatment No Information Insurance Providers Payer Name Payer Address Payer Phone Subscriber Number Group Number Insured Name Patient Relationship to Insured Coverage Start Date Coverage End Date All Savers [address] [address] [place] [address] [id number] [facility] Self - patient is the insured 1 CIGNA [address] [place] [address] [id number] [facility] - patient is the insured 1 Medical (General) History Medical History History ICD Code T & A at age 7 R eye hemorrhage 01/2020 Surgical History Surgery Date(Month/Year) Tonsillectomy and adenoidectomy 2008 Hospitalization History Reason Date(Month/Year) at [facility] 03/2018 OD took #80 celexa pills 2017?
--- OUTSIDE RECORDS SUMMARY | 2024-04-10 13:49 | XMS_ITS | Patient Health Summary ---
Author Organization [facility] Address [address] [place] [address] Care Team Providers Care Coal Bagger Name Role Phone Komal Flores MD Primary Care Provider [phone] Note from [facility],non-owned Affiliates and Associated Physician Practices is amultiple site organization consisting of ambulatory clinics and hospital sitesin [place], [place], [place] and [place]. This disclosure is being madepursuant to the Care Everywhere program and may not contain all information available regarding this patient. Last updated 17.[facility] Allergies * Bee Venom(Skin Reactions) * Dexmethylphenidate(Other) Medications * Be aware that medications may not be up to date on this document. Alwaysverify current medications with the patient. * acyclovir (ZOVIRAX) 400 MG tablet(Started 06/04/2013) Take 1 tablet by mouth three times a day for 5 days then take one tablet daily x 2 months. Active Problems Problem Noted Date Diagnosed Date Nonspecific skin eruption 06/04/2013 Social History Tobacco Use Types Packs/Day Years [...] Mass Index 17.64 06/04/2013 1:21 PM CDT Procedures * VIRAL CULTURE HERPES SIMPLEX(Performed 06/04/2013) Performed for Nonspecific skin eruption * HERPES SIMPLEX 1+2 PCR(Performed 06/04/2013) Performed for Nonspecific skin eruption Results * VIRAL CULTURE HERPES SIMPLEX (06/04/2013 2:08 PM CDT) Final Report SEE NOTE 06/06/2013 6:07 PM CDT [facility] Comment:Culture Negative for Herpes Simplex Virus Prelim Report SEE NOTE 06/06/2013 6:07 PM CDT [facility] Comment:Specimen received an d in progress. Miscellaneous samples (specimen) LESION SPECIMEN / Unknown 06/04/2013 2:08 PM CDT 06/04/2013 2:16 PM CDT Freda Fonseca MD LAB - MICROBIOLOGY O [facility] Performing Organization Address [facility] de Phone Number [facility] [address] [place] [address] * HERPES SIMPLEX PCR (06/04/2013 2:08 PM CDT) Herpes Simplex Virus PCR Not Detected 06/06/2013 1:30 PM CDT [facility] Comment: NOT DETECTED - A negative result does not rule out the presence of PCR inhibitors in the patient specimen or assay specific nucleic acid in concentrations below the level of detection by the assay. INTERPRETIVE INFORMATION: Herpes Simplex Virus by PCR Test developed and characteristics determined by [employer]. See Compliance Statement A: [email or web address] This test is performed pursuant to an agreement with [employer] Source Lesion Swab 06/06/2013 1:30 PM CDT [facility] Miscellaneous samples (specimen) LESION SPECIMEN / Unknown 06/04/2013 2:08 PM CDT 06/04/2013 2:16 PM CDT Freda Fonseca MD LAB - MICROBIOLOGY [facility] Performing Organization Address [facility] Co de Phone Number [address] [place] [address] Care Teams Coal Bagger Relationship Specialty Start Date End Date Komal Flores MD [address] [place] [address] PCP - General Pediatrics 06/04/13
--- OUTSIDE RECORDS SUMMARY | 2024-04-10 13:49 | XMS_ITS | Encounter Summary ---
Author Organization [facility] Address [address] [place] [address] Phone Care Team Providers Care Television Reporter Name Role Phone Mitchel Woods MD Primary Care Provider [phone] Carlotta Degroot NP Primary Care Provider [phone] Encounter Details Date Type Department Care Team (Late st Contact Info) Description 02/06/2020 Ophth Exam [facility] [address] [place] [address] 1st [place] [address] Darrion Robert MD [address] [place], [place] [id number] Social History Tobacco Use Types Packs/Day Years Used Date Smoking Tobacco: Never Smokeless Tobacco: Never Alcohol Use Standard Drinks/Week Comments No 0 (1 standard drink = 0.6 oz pur e alcohol) PHQ-2 Answer Date Recorded PHQ-2 Total Score 0 11/01/2019 Comments No Sex and Gender Information Value Date Recorded Sex Assigned at Not on file Legal Sex Female 11:47 AM FLATWORK SUPERVISOR Gender Identity Female 11/15/2021 7:51 PM CDT Sexual Orientation Straight 11/15/2021 7: 51 PM CDT documented as of this encounter Plan of Treatment Not on file documented as of this encounter Visit Diagnoses Not on filedocumented in this encounter Additional Health Concerns Infection Onset Date Last Indicated Resolved Time COVID: Suspected 03/28/2024 03/28/2024 03/28/2024 1:02 PM FLATWORK SUPERVISOR COVID19 03/28/2024 03/28/2024 04/07/2024 3:07 AM FLATWORK SUPERVISOR documented as of this encounter Eye Exam Visual Acuity Right eye Left eye Near sc 20/20 20/20 Tonometry (Tonopen, 5:21 PM) Right eye Left eye Pressure 19 13 breath holding OD Pupils Dark Light Shape React APD Right eye 5 3 Round Brisk - Left eye 5 3 Round Brisk - Visual Bauer Right eye Left eye Full Full Extraocular Movement Right eye Left eye Full Full External Exam Right eye Left eye External Normal Normal Slit Lamp Exam Right eye Left eye Lids/Lashes Normal tr LL swelling Conjunctiva/Sclera White and quiet inferior virgilio ous JACI Cornea Clear confluent SPEE t emporally, no valeri epi defect Anterior Chamber Deep and quiet Deep and quiet Iris Round and reactive Round and leonardo ctive Lens Clear Clear Vitreous Normal Normal Fundus Exam Right eye Left eye Disc Normal, sharp margin s, no elevation, no pallor Normal, sharp margins, no elevation, no pallor C/D Ratio 0.2 0.2 Macula Normal, flat, no heme Normal, fl at, no heme Vessels Normal Normal Periphery Normal, no heme, att ached 360 w/o RD/RT Normal, no heme, attached 360 w/o RD/RT Care Teams Television Reporter Relationship Specialty Start Date End Date Mitchel Woods MD [address] [place] [address] PCP - General Family Medicine 03/25/17 11/20/23 Carlotta Degroot NP [address] [facility] [place] [address] PCP - General Internal Medicine 11/21/23 documented as of this encounter
--- OUTSIDE RECORDS SUMMARY | 2024-04-10 13:49 | XMS_ITS | Referral Summary ---
Author Organization [facility] Address [address] [place] [address] Care Team Providers Care Quarry Supervisor Dimension Stone Name Role Phone Carlotta Degroot NP Primary Care Provider [phone] Encounters Date Type Department Care Team Description 03/28/2024 12:45 PM ANALYTIC MANAGER Office Visit [facility] [address] [place] [address] Jodie Pérez NP COVID (Primary Dx) 02/26/2024 2:50 PM ANALYTIC MANAGER Lab [facility] [address] [place] [id number] from Last 3 Months Allergies Active Allergy Reactions Criticality Noted Date [...] goes through Carlotta Degroot at [facility]. SVT (supraventricular tachycardia) 10/16/2022 Assessment & Plan (12/02/2023 3:22 PM CDT): She has a h/o palpations. She has done holter monitor before The last was about 3 months ago Will see if she can see Dr. Leal during If not, will refer to [facility]. Manic behavior 10/17/2021 Assessment & Plan (12/23/2023 2:19 PM ANALYTIC MANAGER): She is going to continue on with [...] to converse. Verified that she has appt w/CHILDREN [facility]RARIAN 11/20/21. Verified that she will go to [...] No longer seeing counselor but still sees team psychologist Adair Yun at [facility] in [place]. MOP unable to control Shauna at this time during appt. Not tearful but flat/blunt affect. Denies thoughts of SI/HI on direct questioning. Assessment & Plan (10/09/2018 10:12 AM CDT): No longer seeing counselor. Still seeing team psychologist: Adair Yun at [facility] in [place]. Difficulty taking medications per MOP confidentially on [...] 020 Assessment & Plan (12/25/2018 8:37 AM ANALYTIC MANAGER): Rapid flu swab: NEGATIVE This looks viral [...] vulnerable. Assessment & Plan (12/25/2018 8:37 AM ANALYTIC MANAGER): Discussed and the patient refuses immunization today. Educated regarding the need to vaccinate for personal protection and to limit the viruses in the community to protect those most vulnerable. Flu-like symptoms 12/24/2018 10/31/2019 Assessment & Plan (12/25/2018 8:37 AM ANALYTIC MANAGER): NEGATIVE rapid flu swab in office. School [...] this time. Here w/step-father but MOP Torres Loo on phone. 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 (possibly neomycin specimens for viral cx 2 (Jan 2013 and Apr 2013) 06/04/13: HSV PCR and Cx neg no FH cold sores Immunizations Immunization Administration Dates Next Due DTaP [...] Unspecified 02/24/2004,0 04/20/2003,02/16/2003 Tdap 09/07/2013 Varicella 2006,12/20/2003 Social History Tobacco Use Types Packs/Day Years Used Date Smoking Tobacco: Former Cigarettes S tarted: 2017 Vaping Smokeless Tobacco: Current Comments:Also smokes marijua [...] on file Legal Sex Female 11:47 AM ANALYTIC MANAGER Gender Identity Female 11/15/2021 7:51 PM CDT Sexual Orientation Straight 11/15/2021 7: 51 PM CDT Last Filed Vital Signs Vital Sign Reading Time Taken Comments Blood Pressure 116/64 03/28/2024 12:44 PM ANALYTIC MANAGER Pulse 79 03/28/2024 12:44 PM ANALYTIC MANAGER Temperature 36.6 C (97.9 F) 03/28/2024 12:44 PM ANALYTIC MANAGER Respiratory Rate 18 03/28/2024 12:4 4 PM ANALYTIC MANAGER Oxygen Saturation 99% 03/28/2024 12: 44 PM ANALYTIC MANAGER Inhaled Oxygen Concentration - - Weight 61.1 kg (134 lb 12.8 oz) 025 12:44 PM ANALYTIC MANAGER Height 157.5 cm (5' 2 ) 03/28/2024 12:4 4 PM ANALYTIC MANAGER Body Mass Index 24.66 03/28/2024 12:44 PM ANALYTIC MANAGER Plan of Treatment Not on file Procedures Procedure Name Priority Date/Time Associated Diagnosis Comments POC INFLUENZA A/B, COVID-19 ANTIGEN Routine 03/28/2024 1:01 PM ANALYTIC MANAGER COVID POCT RAPID STREP Routine 03/28/2024 1:01 PM ANALYTIC MANAGER COVID ANTIBODY SCREEN Routine 02/26/2024 2:51 PM ANALYTIC MANAGER DIFFERENTIAL AUTO Routine 02/26/2024 2:5 1 PM ANALYTIC MANAGER FERRITIN Routine 02/26/2024 2:51 PM ANALYTIC MANAGER HEMOGLOBIN A1C Routine 02/26/2024 2:51 PM ANALYTIC MANAGER VITAMIN D 25 HYDROXY Routine 02/26/2024 2:51 PM ANALYTIC MANAGER ABO/RH Routine 02/26/2024 2:51 PM ANALYTIC MANAGER CBC WITH AUTO DIFFERENTIAL Routine 02/26/2024 2:51 PM ANALYTIC MANAGER HEPATITIS C ANTIBODY Routine 02/26/2024 2:51 PM ANALYTIC MANAGER HIV 1/2 ANTIBODY PLUS P24 ANTIGEN Routine 02/26/2024 2:51 PM ANALYTIC MANAGER RUBELLA IGG Routine 02/26/2024 2:51 PM ANALYTIC MANAGER HEPATITIS B SURFACE ANTIGEN Routine 02/26/2024 2:51 PM ANALYTIC MANAGER RPR Routine 02/26/2024 2:51 PM ANALYTIC MANAGER N. GONORRHOEAE/C. TRACHOMATIS AMPLIFICATION Routine 12/02/2023 4:42 PM CDT PAP, REFLEX HPV Routine 12/02/2023 4:42 PM CDT Encounter for supervision of normal first in first trimester from Last 3 Months or Most Recently Relevant to Health Maintenance Results * (ABNORMAL) POC Influenza A/B, COVID-19 antigen (03/28/2024 1:01 PM ANALYTIC MANAGER) [facility] Influenza A Ag, POC Negative Negative [facility] Influenza B Ag, POC Negative Negative [facility] COVID-19 Ag POC Positive(A) Presumptive Negative, Invalid [facility] Nasal 03/28/2024 1:01 PM ANALYTIC MANAGER Jodie P[address] LIGHT REPAIRER HELPER POINT OF CARE TEST ORDERABLES Final Result Performing Organization Address [facility] Co de Phone Number [facility] [address] [place] [address] [place] [address] * POCT rapid strep A (03/28/2024 1:01 PM ANALYTIC MANAGER) [facility] Rapid Strep A, POC Negative Negative [facility] Swab 03/28/2024 1:01 PM ANALYTIC MANAGER Jodie P[address]rez STRE[address] LIGHT REPAIRER HELPER POINT OF CARE TEST ORDERABLES Final Result Performing Organization Address [facility] de Phone Number [facility] [address] [place] [address] [place] [address] * (ABNORMAL) Differential, auto (02/26/2024 2:51 PM ANALYTIC MANAGER) [facility] Neutrophil abs 12.3(H) 1.5 - 6.5 K/cumm Comment:Testing performed by : [facility], [address] [place] [address]., [address] Imm gran abs 0.4(H) 0.0 - 0.1 K/cumm [facility] ([facility]) Comment:Testing performed by : [facility], [address] [place] [address]., [address] Lymphocyte abs 2.1 0.8 - 3.3 K/cumm [facility] ([facility]) Comment:Testing performed by : [facility], [address] [place] [address]., [address] Monocyte abs 0.6 0.2 - 0.8 K/cumm [facility] ([facility]) Comment:Testing performed by : [facility], [address] [place] [address]., [address] Eosinophil abs 0.2 0.0 - 0.5 K/cumm [facility] ([facility]) Comment:Testing performed by : [facility], [address] [place] [address]., [address] Basophil abs 0.1 0.0 - 0.1 K/cumm [facility] ([facility]) Comment:Testing performed by : [facility], [address] [place] [address]., [address] Neutrophil pct 78.3 % [facility] ([facility]) Comment: Interpretive Data Percent cell count reference ranges are not reported, since discordance with absolute values may lead to misinterpretation of CBC data. Current Interpretive Data was last revised on 2017. Testing performed by: [facility], [address] [place] [address]., [address] Imm gran pct 2.4 % [facility] ([facility]) Comment: Interpretive Data Percent cell count reference ranges are not reported, since discordance with absolute values may lead to misinterpretation of CBC data. Current Interpretive Data was last revised on 2017. Testing performed by: [facility], [address] [place] [address]., [address] Lymphocyte pct 13.6 % [facility] ([facility]) Comment: Interpretive Data Percent cell count reference ranges are not reported, since discordance with absolute values may lead to misinterpretation of CBC data. Current Interpretive Data was last revised on 2017. Testing performed by: [facility], [address] [place] [address]., [address] Monocyte pct 4.0 % [facility] ([facility]) Comment: Interpretive Data Percent cell count reference ranges are not reported, since discordance with absolute values may lead to misinterpretation of CBC data. Current Interpretive Data was last revised on 2017. Testing performed by: [facility], [address] [place] [address]., [address] Eosinophil pct 1.3 % [facility] ([facility]) Comment: Interpretive Data Percent cell count reference ranges are not reported, since discordance with absolute values may lead to misinterpretation of CBC data. Current Interpretive Data was last revised on 2017. Testing performed by: [facility], [address] [place] [address]., [address] Basophil pct 0.4 % [facility] ([facility]) Comment: Interpretive Data Percent cell count reference ranges are not reported, since discordance with absolute values may lead to misinterpretation of CBC data. Current Interpretive Data was last revised on 2017. Testing performed by: [facility], [address] [place] [address]., [address] Blood 02/26/2024 2:51 PM ANALYTIC MANAGER 02/26/2024 2:51 PM ANALYTIC MANAGER us Dortia Valdes MD LAB BLOOD ORDERABLES Fin al Result [facility] ([facility]) 1 [facility] [employer] [address] * HIV 1/2 Antibody plus p24 Antigen Blood (02/26/2024 2:51 PM ANALYTIC MANAGER) HIV 1/2 ab + p24 ag Nonreactive Nonreactive Comment: Nonreactive for HIV-1 antigen and HIV-1/HIV-2 antibodies. No laboratory evidence of HIV infection. If acute HIV infection is suspected, consider testing for HIV-1 RNA. Testing performed by: [facility], [address] [place] [address]., [address] Blood 02/26/2024 2:51 PM ANALYTIC MANAGER 02/26/2024 2:54 PM ANALYTIC MANAGER us Dorita Valdes MD LAB MICROBIOLOGY - GENER AL ORDERABLES Final Result [facility] ([facility]) 1 [facility] [employer] [facility] [place], [place] [id number] * (ABNORMAL) CBC with auto differential (02/26/2024 2:51 PM ANALYTIC MANAGER) WBC 15.7(H) 3.8 - 9.9 K/cumm Comment:Testing performed by : [facility], [address] [place] [address], [address] Hgb 10.9(L) 11.9 - 15.5 g/dL [facility] ([facility]) Comment:Testing performed by : [address], [address] Hct 34.0(L) 35.6 - 45.5 % [facility] ([facility]) Comment:Testing performed by : [facility], [address] [place] [address], [address] Plt 291 150 - 400 K/cumm [facility] ([facility]) Comment:Testing performed by : [address], [address] MPV 10.3 9.1 - 12.3 fL [facility] ([facility]) Comment:Testing performed by : [address], [address] RBC 3.42(L) 3.90 - 5.20 M/cumm [facility] ([facility]) Comment:Testing performed by : [address], [address] MCV 99.4(H) 81.3 - 96.4 fL [facility] ([facility]) Comment:Testing performed by : [address], [address] MCH 31.9 27.1 - 33.3 pg [facility] ([facility]) Comment:Testing performed by : [address], [address] MCHC 32.1(L) 32.3 - 35.7 g/dL [facility] ([facility]) Comment:Testing performed by : [address], [address] RDW CV 12.9 11.1 - 14.9 % [facility] ([facility]) Comment:Testing performed by : [address], [address] RDW SD 47.0 35.7 - 48.1 fL [facility] ([facility]) Comment:Testing performed by : [address], [address] NRBC abs 0.00 0.00 - 0.01 K/cumm [facility] ([facility]) Comment:Testing performed by : [facility], [address] [place] [address]., [address] Blood 02/26/2024 2:5 1 PM ANALYTIC MANAGER 02/26/2024 2:51 PM ANALYTIC MANAGER Dorita Valdes MD LAB BLOOD ORDERABLES Fin al Result Performing Organization Address [facility] de Phone Number [facility] ([facility]) 1 [facility] [place] [address] * Hepatitis C antibody Blood (02/26/2024 2:51 PM ANALYTIC MANAGER) Hep C Ab Nonreactive Nonreactive Comment: Interpretive [...] last revised on 2019. Testing performed by: [facility], [address] [place] [address]., [address] Blood 02/26/2024 2:51 PM ANALYTIC MANAGER 02/26/2024 2:54 PM ANALYTIC MANAGER Dorita Valdes MD LAB MICROBIOLOGY - GENER AL ORDERABLES Final Result Performing Organization Address [facility] Co de Phone Number [facility] ([facility]) 1 [facility] [place] [address] * ABO/Rh (02/26/2024 2:51 PM ANALYTIC MANAGER) ABO/Rh O Positive Blood 02/26/2024 2:51 PM ANALYTIC MANAGER 02/27/2024 3:10 PM ANALYTIC MANAGER Dorita Valdes MD LAB BLOOD BANK TEST ORDE RABLES Final Result Performing Organization Address [facility]ZIP Co de Phone Number [facility] ([facility]) 1 [facility] [place] [address] * Vitamin D 25 hydroxy (02/26/2024 2:51 PM ANALYTIC MANAGER) Pathologist [facility] Vitamin D 25-OH 46 30 - 80 ng/mL Comment:Testing performed by : [facility], [address] [place] [address], [place]., [address] Blood 02/26/2024 2:51 PM ANALYTIC MANAGER 02/26/2024 2:54 PM ANALYTIC MANAGER us Dorita Valdes MD LAB BLOOD ORDERABLES Fin al Result Performing Organization Address [facility] Co de Phone Number [facility] (STIT[facility]) [address] [place] [address] * Rubella IgG antibody Blood (02/26/2024 2:51 PM ANALYTIC MANAGER) Pathologist [facility] Rubella IgG Reactive Comment: Reactive: Results suggest response to immunization or prior exposure to the virus. Testing performed by: [facility], [address] [place] [address], [place]., [address] Blood 02/26/2024 2:51 PM ANALYTIC MANAGER 02/27/2024 10:00 AM ANALYTIC MANAGER us Dorita Valdes MD LAB MICROBIOLOGY - GENER AL ORDERABLES Final Result Performing Organization Address [facility] Co de Phone Number [facility] ([facility]) 1 [facility] [place] [address] * RPR Blood (02/26/2024 2:51 PM ANALYTIC MANAGER) Pathologist [facility] RPR Nonreactive Nonreactive Comment:Testing performed by : [facility], [address] [place] [address], [place]., [address] Blood 02/26/2024 2:51 PM ANALYTIC MANAGER 02/26/2024 2:53 PM ANALYTIC MANAGER us Dorita Valdes MD LAB MICROBIOLOGY - GENER AL ORDERABLES Final Result Performing Organization Address [facility]/ZIP Co de Phone Number [facility] ([facility]) 1 [facility] [place] [address] * Hepatitis B Surface Antigen Blood (02/26/2024 2:51 PM ANALYTIC MANAGER) Pathologist [facility] HepBsAg Nonreactive Nonreactive Comment:Testing performed by : [facility], [address] [place] [address], [place]., [address] Blood 02/26/2024 2:51 PM ANALYTIC MANAGER 02/26/2024 2:54 PM ANALYTIC MANAGER Dorita Valdes MD LAB MICROBIOLOGY - GENER AL ORDERABLES Final Result Performing Organization Address [facility] Co de Phone Number [facility] (STIT[facility]) [address] [place] [address] * Antibody screen (02/26/2024 2:51 PM ANALYTIC MANAGER) Pathologist [facility] Lexii, indirect, Gel Interpretation Negative ABSC Blood 02/26/2024 2:51 PM ANALYTIC MANAGER 02/27/2024 3:10 PM ANALYTIC MANAGER Dorita Valdes MD LAB BLOOD BANK TEST ORDE RABLES Final Result Performing Organization Address [facility] Co de Phone Number [facility] ([facility]) 1 [facility] [place] [address] * Hemoglobin A1c (02/26/2024 2:51 PM ANALYTIC MANAGER) [facility] Hgb A1C 4.9 4.0 - 5.6 % Comment:Testing performed by : [facility], [address] [place] [address], [place]., [address] Estimated Average Glucose 94 mg/dL [facility] ([facility]) Comment: The ADA recommends reporting an estimated Average Glucose (eAG) with all Hemoglobin A1c results using the equation derived from a study of 507 normal and diabetic adults. Minority populations were underrepresented and children were not included. (Diabetes Care 31:3973-0088, 2008). The eAG is not equivalent to a fasting glucose. Testing performed by: [facility], [address] [place] [address]., [address] Blood 02/26/2024 2:51 PM ANALYTIC MANAGER 02/26/2024 2:55 PM ANALYTIC MANAGER Dorita Valdes MD LAB BLOOD ORDERABLES Fin al Result Performing Organization Address [facility] Co de Phone Number [facility] ([facility]) 1 [facility] [place] [address] * Ferritin (02/26/2024 2:51 PM ANALYTIC MANAGER) Ferritin 16 15 - 150 ng/mL Comment:Testing performed by : [facility], [address] [place] [address], [address] Blood 02/26/2024 2:51 PM ANALYTIC MANAGER 02/26/2024 2:55 PM ANALYTIC MANAGER Dorita Valdes MD LAB BLOOD ORDERABLES Fin al Result Performing Organization Address [facility] de Phone Number [facility] ([facility]) [address] [place] [address] * (ABNORMAL) Pap, reflex HPV (12/02/2023 4:42 PM CDT) CLINICAL INFORMATION: Wade Agosto Comment: LMP Wade Agosto Comment:09/12/2023 Previous Pap Wade Agosto Comment:NONE GIVEN Prev. Bx Wade Agosto Comment:NONE GIVEN SOURCE: Wade Agosto Comment:Cervix, Endocervix Pap, specimen adequacy Wade Agosto Comment: Satisfactory for evaluation. Endocervical/transformation zone component present. Pap, general categorization (A) Wade Agosto Comment:Cytology Results: Ep ithelial Cell Abnormality HPV interp (A) Wade Agosto Comment:Low Grade Squamous I ntraepithelial Lesion (LSIL) COMMENTS Wade Agosto Comment: This Pap test has been evaluated with computer assisted technology. Suggest clinical correlation and follow-up as clinically appropriate Capture Manager Que [facility] Comment: PCM, CT(ASCP) CT Screening Location: [place] [address] Administration MACK [place] [address] Pathologist [facility] Jewel Agosto Comment: John Ulloa M.D., Board Certified in Anatomic Pathology and Cytopathology. (electronic signature) Comment [facility] Comment: EXPLANATORY NOTE: The Pap is [...] MD LAB CYTOLOGY ORDERA BLES Final Result [place] [address] [address] MACK Ortiz [phone] * N. gonorrhoeae/C. trachomatis Amplification (12/02/2023 4:42 PM CDT) Pathologist [facility] [place] C. trachomatis RNA NOT DETECTED NOT DETECTED [facility] [place] N. gonorrhoeae RNA NOT DETECTED NOT DETECTED [facility] [place] Comment [facility] Comment: The analytical performance characteristics of this assay, when used to test SurePath(TM) specimens have been determined by [facility]. The modifications have not been cleared or approved by the FDA. This assay has been validated pursuant to the CLIA regulations and is used for clinical purposes. For additional information, please refer to https://education.OptoNova/faq/EAS299 (This link is being provided for information/ educational purposes only.) 12/02/2023 4:42 PM CDT 12/03/2023 4:33 AM CDT Vaishali Drake MD LAB MICROBIOLOGY - GENERAL ORDERABLES Final Result [facility] [address] [address] [id number] from Last 3 Months or Most Recently Relevant to Health Maintenance Insurance [employer] CHOICE [place] ACCESS CHOICE IDPA CIGNA OPEN [facility] Care Teams Quarry Supervisor Dimension Stone Relationship Specialty Start Date End Date Carlotta Degroot NP [address] [place] [address] PCP - General Internal Medicine 11/21/23
--- OUTSIDE RECORDS SUMMARY | 2024-04-10 13:49 | XMS_ITS | Clinical Summary ---
Author Organization [facility] Address [address] [place] [address] Phone Care Team Providers Care Community Health Worker Name Role Phone Mitchel Woods MD Primary Care Provider [phone] Allergies Active Allergy Reactions Criticality Noted Date Comments Dexmethylphenidate Swelling 03/14/2018 Venom-Wasp Hives 03/14/2018 Medications No known medications Active Problems Problem Noted Date Diagnosed Date Severe episode of recurrent major depressive disorder, without psychotic features 03/13/2018 Head lice infestation 03/13/2018 Social History Tobacco Use Types Packs/Day Years Used Date Smoking Tobacco: Never Smokeless Tobacco: Never Alcohol Use Standard Drinks/Week Comments No 0 (1 standard drink = 0.6 oz pur e alcohol) Adolescent Education Answer Date Record ed Getting School Help Needed Not on file 09/07 Comments No Sex and Gender Information Value Date Recorded Sex Assigned at Not on file Legal Sex Female 11:10 PM CDT Gender Identity Not on file Sexual Orientation Not on file Last Filed Vital Signs Vital Sign Reading Time Taken Comments Blood Pressure 108/58 03/19/2018 8:09 AM DELIVERY AIDE Pulse 72 03/19/2018 8:09 AM DELIVERY AIDE Temperature 36.4 C (97.5 F) 03/19/2018 8:09 AM DELIVERY AIDE Respiratory Rate 18 03/19/2018 8:09 AM DELIVERY AIDE Oxygen Saturation 100% 03/19/2018 9:00 AM DELIVERY AIDE Inhaled Oxygen Concentration - - Weight 53 kg (116 lb 12.8 oz) 03/14/2018 6:04 PM DELIVERY AIDE Height 157.5 cm (5' 2 ) 03/14/2018 6:04 PM DELIVERY AIDE Body Mass Index 21.36 03/14/2018 6:04 PM DELIVERY AIDE Plan of Treatment Health Maintenance Due Date Last Done Comments CHLAMYDIA SCREENING (ANNUAL) 11-24 YEARS 2013 HPV VACCINES (1 - 3-dose series) 2017 HEPATITIS B VACCINES (1 of 3 - 19+ 3-dose series) 11/11 DTAP/TDAP/TD VACCINES (2 - Td or Tdap) 09/08/2023 INFLUENZA VACCINE (#1) 2023 CERVICAL CANCER SCREENING 12/09/2023 Insurance BLUE ACCESS/TRUE [employer] PPO [facility] OPEN ACCESS HMO BC[employer] BLUE ACCESS/TRUE BLUE PPO [facility] OPEN ACCESS HMO Advance Directives For more information, please contact: [phone] * Full Code (Latest Code Status on File) Date Activated Date Inactivated Comments 03/14/2018 11:58 PM 03/19/2018 2:58 PM * Full Code Date Activated Date Inactivated Comments 03/13/2018 5:12 PM 03/14/2018 6:16 PM Care Teams Community Health Worker Relationship Specialty Start Date End Date Mitchel Woods MD PCP - General Family Practice 03/13/18
[2024-04-10 14:06] VITALS: BP 135/86; PULSE 94; RESP 16; TEMP 37
[2024-04-10 14:30] VITALS: BP 117/68; PULSE 71
[2024-04-10 14:34] VITALS: BMI 25.0
[2024-04-10 14:35] LABS: Add Urine Microscopic? YES; Appearance Urine Cloudy (Clear); Bacteria Urine 2+ /hpf; Bilirubin Urine Negative (Negative); Blood Urine Negative (Negative); Color Urine Yellow (Yellow); Glucose Urine UA Negative (Negative); Ketones Urine Trace mg/dL (Negative); Leukocyte Esterase Ur Trace LEU/UL (Negative); Nitrate Urine Negative (Negative); Protein Urine Negative (Negative); RBC Urine 0-2 /hpf (0-2); Specific Grav Ur 1.021 (1.001-1.035); Squamous Epithelial Cell Urine Many /hpf (Few); Urobilinogen Urine 0.2 mg/dL (<2.0)
--- NOTE | 2024-04-10 14:35 | OBADM ---
This patient, Shauna Peterson, admitted to the OB room 116 for observation. Patient/family oriented to hospital policies and general routines including ID bracelet, bed and alarms, visiting hours, pain management, procedures, bathroom and other care routines, personal items, smoking policy, room service/diet, and visiting hours. Patient/Family are encouraged to report perceived risks to care and to ask questions if they do not understand what they are told or what they should do.
[2024-04-10 15:00] VITALS: BP 119/72; PULSE 89
--- NOTE | 2024-04-22 22:18 | PM.OBTRLD ---
OB - Triage/Final Diagnosis Visit Information Comments/Additional reasons for admission: I have assessed the risk for this patient, Shauna Peterson, and determined that she would benefit from observation care. Evaluation Laboratory results: Laboratory Tests 04/10/24 14:22 Urine Color Yellow Urine Appearance Cloudy H Urine pH 6.0 Ur Specific [place] 1.021 Urine Protein Negative Urine Glucose (UA) Negative Urine Ketones Trace H Ur Blood (Man) Negative Urine Nitrate Negative Urine Bilirubin Negative Urine Urobilinogen 0.2 Leukocyte Esterase Rfl Trace H Urine RBC 0-2 Urine WBC 11-20 H Ur Squamous Epith Cells Many H Urine Bacteria 2+ H Urine Casts 3-5 Final Diagnosis (1) Spotting affecting : Code(s): O26.859 - Spotting complicating , unspecified trimester Status: Acute
== END 2024-04-10 15:58 | disposition home or self-care (01) ==
PROVIDERS: Admitting Provider Obstetrics & Gynecology; Visit Provider Obstetrics & Gynecology
DX: O26.853 Spotting complicating pregnancy, third trimester (principal); Z3A.30 30 weeks gestation of pregnancy
CPT/HCPCS: 81001; 87086; G0378; G0379

== ENCOUNTER 2024-05-25 23:33 | Observation (INO) | payer BC, MEDICAID, SELFPAY ==
--- OUTSIDE RECORDS SUMMARY | 2024-05-25 23:44 | XMS_ITS | Clinical Summary ---
Author Organization [facility] Address [address] [place] [address] Phone Care Team Providers Care Mechanical Integrity Specialist Name Role Phone Mitchel Woods MD Primary Care Provider [phone] Allergies Active Allergy Reactions Criticality Noted Date Comments Dexmethylphenidate Swelling 03/14/2018 Venom-Wasp Hives 03/14/2018 Medications aspirin (JEROME CHEWABLE) 81 mg Tablet, Chewable Take 81 mg by mouth daily. 12/02/2023 Active FeroSuL 325 mg (65 mg iron) tablet Take 1 Tablet by mouth daily. 03/04/2024 Active prochlorperazine maleate (COMPAZINE) 10 mg tablet Take 10 mg by mouth every 6 hours as needed. 04/27/2024 Active QUEtiapine (SEROquel) 25 mg tablet Take 50 mg by mouth daily at bedtime. Active Active Problems Problem Noted Date Diagnosed Date Severe episode of recurrent major depressive disorder, without psychotic features 03/13/2018 Head lice infestation 03/13/2018 Estimated Date of Delivery Comme nts Yes 06/19/2024 Encounters Date Type Department Care Team Description 04/28/2024 1:00 PM CDT Initial [facility] Maternal Medicine [id number] [address] [place] [address] Lesley Webb MD High risk , antepartum (Primary Dx); Maternal mental disorder, antepartum; uterine contractions in third trimester, antepartum; Marijuana use during ; 32 weeks gestation of 04/28/2024 External Device Data STL ABSTRACTION Provider, Abstract 04/28/2024 External Device Data STL ABSTRACTION Provider, Abstract 04/27/2024 Abstract [facility] Maternal and Medicine - [facility] [address] [place] [address] Ana Herrera RN 04/22/2024 2:11 PM CDT - 04/22/2024 11:59 PM CDT Hospital Encounter [facility] [address] [place] [address] Dorita Valdes MD Discharge Disposition: Home or Self Care 04/20/2024 External Device Data STL ABSTRACTION Provider, Abstract 04/20/2024 External Device Data STL ABSTRACTION Provider, Abstract 04/19/2024 Telephone [facility] Maternal and Medicine [facility] [address] [place] [id number] Vishal Landon MD Appointment Notification 04/16/2024 Orders Only [facility] Maternal and [address] [place] [id number] Dorita Valdes MD labor in third trimester without delivery (Primary Dx); Bipolar 1 disorder (CMS/HCC); Depressive disorder in mother affecting ; Anxiety state; SVT (supraventricular tachycardia); drug exposure (CMS/HCC) from Last 3 Months Social History Tobacco Use Types Packs/Day Years Used Date Smoking Tobacco: Never Smokeless Tobacco: Never Alcohol Use Standard Drinks/Week Comments No 0 (1 standard drink = 0.6 oz pur e alcohol) Adolescent Education Answer Date Record ed Getting School Help Needed Not on file 09/07 Estimated Date of Delivery Comme nts Yes 06/19/2024 Sex and Gender Information Value Date Recorded Sex Assigned at Not on file Legal Sex Female 11:10 PM CDT Gender Identity Not on file Sexual Orientation Not on file Last Filed Vital Signs Vital Sign Reading Time Taken Comments Blood Pressure 128/80 04/28/2024 1:02 PM CDT Pulse 88 04/28/2024 1:02 PM CDT Temperature 36.4 C (97.5 F) 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 Respiratory Rate 20 04/28/2024 1:02 PM CDT Oxygen Saturation 99% 04/28/2024 1:02 PM CDT Inhaled Oxygen Concentration - - Weight 64 kg (141 lb) 04/28/2024 1:02 PM CDT Height 157.5 cm (5' 2 ) 04/28/2024 1:02 PM CDT Body Mass Index 25.79 04/28/2024 1:02 PM CDT Plan of Treatment Health Maintenance Due Date Last Done Comments CHLAMYDIA SCREENING (ANNUAL) 11-24 YEARS 2013 HPV VACCINES (1 - 3-dose series) 2017 DTAP/TDAP/TD VACCINES (7 - T d or Tdap) 09/08/2023 09/07/2013, 12/24/2007, 02/24/2004, Additional history exists INFLUENZA VACCINE (#1) 2023 CERVICAL CANCER SCREENING 12/09/2023 HPV/Cotest (21-) 12/09/2023 PAP SMEAR 12/09/2023 Preventative Visit- Commercial 02/11/2024 0 11/02/2020, 11/01/2019, 10/09/2018, Additional history exists HEPATITIS B VACCINES Completed 06/13/2003, 06/13/2003, 04/20/2003, Additional history exists RSV VACCINE (60+ or ) (No Doses Required) Completed Procedures Procedure Name Priority Date/Time Associated Diagnosis Comments US OB DETAIL SINGLE GEST Routine 04/22/2024 3:52 PM CDT screening for malformation using ultrasonics labor in second trimester with delivery in third trimester, fetus 1 Bipolar depression (CMS/HCC) Depression affecting Anxiety SVT (supraventricular tachycardia) from Last 3 Months Results * US OB DETAIL SINGLE GEST (04/22/2024 3:52 PM CDT) Anatomical Region Laterality Modality Pelvis Ultrasound 04/22/2024 2:44 PM CDT Narrative 04/22/2024 4:06 PM CDT STL COMP ----- Pat. Name: MELVINA HARPER Study Date: 04/22/2024 2:44pm Pat. NO: [id number] Referring MD: DORITA VALDES MD Site: [facility] Transcriptionist: Johnna Thacker RDMS : 2000 Age: 23 ----- INDICATION ----- Anatomy Survey Family History of Other Condition MOB h/o SVT CODING ----- Diagnoses Z3A.31: Weeks of gestation Z84.89: Family history of other specified conditions Z36.3: Encounter for screening for malformations Procedures 27109: Ultrasound, uterus, real time with image documentation, follow up, transabdominal approach per fetus HISTORY ----- OB History 1 MATERNAL ASSESSMENT ----- Physical Exam Initial weight 62 kg, 137 lb. Initial BMI 20.83 kg/m METHOD ----- Transabdominal ultrasound examination ----- Tinoco . Number of fetuses: 1 DATING ----- Method of dating: based on stated ODILIA GA by prior assessment 31 w + 5 d ODILIA by prior assessment: 06/19/2024 Ultrasound examination on: 04/22/2024 GA by U/S based upon: AC, BPD, EFW, Femur, HC GA by U/S 31 w + 0 d ODILIA by U/S: 06/24/2024 Assigned: based on stated ODILIA, selected on 04/22/2024 Assigned GA 31 w + 5 d Assigned ODILIA: 06/19/2024 BIOMETRY ----- BPD 73.8 mm 29w 4d 2% Hadlock OFD 101.2 mm 32w 5d 76% Avis HC 281.5 mm 30w 6d 4% Hadlock Cerebellum tr 43.5 mm 35w 0d 95% Das AC 287.4 mm 32w 5d 78% Hadlock Femur 59.1 mm 30w 6d 16% Hadlock Humerus 54.2 mm 31w 4d 46% Avis HC / AC 0.98 9% Nicolaides Weight Calculation: EFW 1,821 g 31w 2d 38% Hadlock EFW (lb,oz) 4 lb 0 oz EFW by Hadlock ([id number]) Head / Face / Neck Biometry: CM 4.6 mm 2% Nicolaides Inner IOD 18.5 mm Extremities / Bony Struc Biometry: FL / BPD 0.80 FL / HC 0.21 FL / AC 0.21 GENERAL EVALUATION ----- Cardiac activity present. FHR 156 bpm. movements: present. Presentation: cephalic Placenta: Placental site: posterior Umbilical cord: Insertion site: Not well visualized Amniotic fluid: Amount of AF: normal amount. MVP 4.9 cm. COLLEEN 16.1 cm. Q1 4.5 cm, Q2 3.8 cm, Q3 4.9 cm, Q4 2.9 cm ANATOMY ----- Heart / Thorax Situs: previously seen. The following structures appear normal: Head / Neck Cranium. Lateral ventricles. Choroid plexus. Midline falx. Cavum septi pellucidi. Cerebellum. Cisterna magna. Face Lips. Profile. Nose. Palate. Orbits. Heart / Thorax RVOT view. 3-vessel view. 2-olsfzo-bwlfrij view. Aortic arch view. Bicaval view. Ductal arch view. Superior vena cava. Inferior vena cava. High short axis view. Diaphragm. Abdomen Abdominal wall. Cord insertion. Stomach. Kidneys. Bladder. Genitals. Spine Cervical spine. Thoracic spine. Lumbar spine. Sacral spine. Extremities / Left arm. Left hand. Right leg. Left leg. Left foot. Skeleton The following structures could not be adequately visualized: Heart / Thorax 4-chamber view. LVOT view. Extremities / Right arm. Right hand. Right foot. Skeleton sex: female. GROWTH OVERVIEW ----- Exam date GA BPD (mm) HC (mm) AC (mm) FL (mm) HL (mm) EFW (g) 04/22/2024 31w 5d 73.8 2% 281.5 4% 287.4 78% 59.1 16% 54.2 46% 1,821 38% COMMENT ----- Patient's name and date of were verified by the clinical data analyst prior to the exam IMPRESSION ----- 1. Single living fetus with a gestational age of 31w 5d based on the reported clinical dates. 2. Current growth parameters are consistent with the stated EDC. The fetus is appropriate for gestational age in size at the 38% (1821 g). 3. Basic anatomic survey is unremarkable. No gross structural abnormalities noted. No sonographic markers for aneuploidy noted. - Suboptimal/incomplete views of: 4CH, LVOT, 3VC/bladder view, R hand, R arm, R foot. 4. Amniotic fluid volume is normal for gestational age. 5. The cervical length is within normal range for gestational age. 6. The right and left ovary appear normal in size and shape. 7. Placenta is posterior . No previa/not low-lying. The placenta cord insertion is not well visualized. Recommendations: - Recommend interval US in 4 weeks to complete the anatomic survey. Thank you for allowing us to participate in the care of this patient. Procedure Note Lesley Webb MD - 04/22/2024 STL COMP ----- Pat. Name:Masood HARPER Date:04/22/2024 2:44pm Pat. NO: [id number] MD:DORITA VALDES [facility]Johnna Thacker RDMS :2000Age:23 ----- INDICATION ----- Anatomy Survey Family History of Other Condition MOB h/o SVT CODING ----- Diagnoses Z3A.31: Weeks of gestation Z84.89: Family history of other specifiedconditions Z36.3: Encounter for screening formalformations Procedures 48332: Ultrasound, uterus, real time withimage documentation, follow up, transabdominal approach per fetus HISTORY ----- OB History 1 MATERNAL ASSESSMENT ----- Physical Exam Initial weight 62 kg, 137 lb. Initial BMI 20.83kg/m METHOD ----- Transabdominal ultrasound examination ----- Tinoco . Number of fetuses: 1 DATING ----- Method of dating:based on stated ODILIA GA by prior [id number] w + 5 d ODILIA by prior assessment:06/19/2024 Ultrasound examination on:04/22/2024 GA by U/S based upon:AC, BPD, EFW, Femur, HC GA by U/S31 w + 0 d ODILIA by U/S:06/24/2024 Assigned:based on stated ODILIA, selected on 04/22/2024 Assigned GA31 w + 5 d Assigned ODILIA:06/19/2024 BIOMETRY ----- BPD 73.8 mm 29w 4d2% Hadlock OFD 101.2 mm 32w 5d76% Avis HC 281.5 mm 30w 6d4% Hadlock Cerebellum tr 43.5 mm 35w 0d95% Das AC 287.4 mm 32w 5d78% Hadlock Femur 59.1 mm 30w 6d16% Hadlock Humerus 54.2 mm 31w 4d46% Avis HC / AC 0.98 9%Nicolaides Weight Calculation: EFW 1,821 g 31w 2d38% Hadlock EFW (lb,oz) 4 lb 0 oz EFW by Hadlock ([id number]) Head / Face / Neck Biometry: CM 4.6 mm 2%Nicolaides Inner IOD 18.5 mm Extremities / Bony Struc Biometry: FL / BPD 0.80 FL / HC 0.21 FL / AC 0.21 GENERAL EVALUATION ----- Cardiac activity present. FHR 156 bpm. movements: present.Presentation: cephalic Placenta: Placental site: posterior Umbilical cord: Insertion site: Not well visualized Amniotic fluid: Amount of AF: normal amount. MVP 4.9 cm. COLLEEN 16.1 cm. Q14.5 cm, Q2 3.8 cm, Q3 4.9 cm, Q4 2.9 cm ANATOMY ----- Heart / Thorax Situs: previously seen. The following structures appear normal: Head / Neck Cranium. Lateral ventricles. Choroid plexus.Midline falx. Cavum septi pellucidi. Cerebellum. Cisterna magna. Face Lips. Profile. Nose. Palate. Orbits. Heart / Thorax RVOT view. 3-vessel view. 8-sysagz-ziroypz view.Aortic arch view. Bicaval view. Ductal arch view. Superior vena cava. Inferior vena cava. High shortaxis view. Diaphragm. Abdomen Abdominal wall. Cord insertion. Stomach. Kidneys.Bladder. Genitals. Spine Cervical spine. Thoracic spine. Lumbar spine.Sacral spine. Extremities / Left arm. Left hand. Right leg. Left leg. Leftfoot. Skeleton The following structures could not be adequately visualized: Heart / Thorax 4-chamber view. LVOT view. Extremities / Right arm. Right hand. Right foot. Skeleton sex: female. GROWTH OVERVIEW ----- Exam date GA BPD (mm) HC (mm) AC (mm) FL(mm) HL (mm) EFW (g) 04/22/2024 31w 5d 73.8 2% 281.5 4% 287.4 78% 59.116% 54.2 46% 1,821 38% COMMENT ----- Patient's name and date of were verified by the clinical data analyst prior tothe exam IMPRESSION ----- 1. Single living fetus with a gestational age of 31w 5d based on thereported clinical dates. 2. Current growth parameters are consistent with the stated EDC. The fetusis appropriate for gestational age in size at the 38% (1821 g). 3. Basic anatomic survey is unremarkable. No gross structuralabnormalities noted. No sonographic markers for aneuploidy noted. - Suboptimal/incomplete views of: 4CH, LVOT, 3VC/bladder view, R hand, Rarm, R foot. 4. Amniotic fluid volume is normal for gestational age. 5. The cervical length is within normal range for gestational age. 6. The right and left ovary appear normal in size and shape. 7. Placenta is posterior . No previa/not low-lying. The placenta cordinsertion is not well visualized. Recommendations: - Recommend interval US in 4 weeks to complete the anatomic survey. Thank you for allowing us to participate in the care of this patient. us Dorita Valdes MD US ORDERABLES Final Res ult from Last 3 Months Insurance MEDICAID [facility] BLUE ACCESS CHOICE [employer] ACCESS CHOICE [place]ID [place] Advance Directives For more information, please contact: [phone] * Full Code (Latest Code Status on File) Date Activated Date Inactivated Comments 03/14/2018 11:58 PM 03/19/2018 2:58 PM * Full Code Date Activated Date Inactivated Comments 03/13/2018 5:12 PM 03/14/2018 6:16 PM Care Teams Mechanical Integrity Specialist Relationship Specialty Start Date End Date Mitchel Woods MD PCP - General Family Practice 03/13/18
--- OUTSIDE RECORDS SUMMARY | 2024-05-25 23:44 | XMS_ITS | Clinical Summary ---
Author Organization [facility] Address [address] [place] [address] Care Team Providers Care Special Education Preschool Teacher Name Role Phone Komal Flores MD Primary Care Provider [phone] Source Comments [facility],non-owned Affiliates and Associated Physician Practices is amultiple site organization consisting of ambulatory clinics and hospital sitesin [place], [place] and [place]. This disclosure is being madepursuant to the Care Everywhere program and may not contain all information available regarding this patient. Last updated 17.[facility] Allergies Active Allergy Reactions Criticality Noted Date Comments Bee Venom Skin Reactions 06/04/2013 Increased redness at site Dexmethylphenidate Other 06/04/2013 Red streaks on face, increased heart rate, facial swelling Medications * Be aware that medications may not be up to date on this document. Alwaysverify current medications with the patient. acyclovir (ZOVIRAX) 400 MG tabletIndication s:Rash and other nonspecific skin eruption Take 1 [...] at Not on file Legal Sex Female 3:07 PM CDT Gender Identity Not on file [...] SCREENING 2018 MENINGOCOCCAL (Group B) VACC INE SHARED DECISION-MAKING (1 of 2 - Standard) 2018 HEPATITIS C SCREENING 12/03/2020 DTAP/TDAP/TD VACCINES (1 - Tdap) 2021 HEPATITIS B VACCINE (1 of 3 - 19+ 3-dose series) 2021 COVID-19 VACCINE (1 - 2023-2 5 season) 2023 DEPRESSION SCREENING 02/11/2024 INFLUENZA VACCINE (Season Ended) 2024 ZOSTER VACCINE (1 of 2) 2052 HIB VACCINE Aged Out No longer eligi ble based on patient's age to complete this topic MENINGOCOCCAL GROUPS A/C/Y/W VACCINE Aged Out No longer eligible b ased on patient's age to complete this topic PNEUMOCOCCAL VACCINE Aged Out No long er eligible based on patient's age to complete this topic Insurance MEDICAID - [place] Care Teams Special Education Preschool Teacher Relationship Specialty Start Date End Date Komal Flores MD [address] [place] [address] PCP - General Pediatrics 06/04/13
--- OUTSIDE RECORDS SUMMARY | 2024-05-25 23:44 | XMS_ITS | Clinical Summary ---
Author Organization [facility] Address [address] [place] [address] Care Team Providers Care Curb Worker Name Role Phone Carlotta Degroot NP Primary Care Provider [phone] Allergies Active Allergy Reactions Criticality Noted Date [...] SI She goes through Carlotta Degroot at [facility]. SVT (supraventricular tachycardia) 10/16/2022 Assessment & Plan (12/02/2023 3:22 PM CDT): She has a h/o palpations. She has done holter monitor before The last was about 3 months ago Will see if she can see Dr. Leal during If not, will refer to [facility]. Manic behavior 10/17/2021 Assessment & Plan (12/23/2023 2:19 PM SERVICE MECHANIC): She is going to continue on [...] to converse. Verified that she has appt w/[employer] [facility] 11/20/21. Verified that she will go to [...] No longer seeing counselor but still sees organizational psychologist Adair Yun at [facility] in [place]. MOP unable to control Shauna at this time during appt. Not tearful but flat/blunt affect. Denies thoughts of SI/HI on direct questioning. Assessment & Plan (10/09/2018 10:12 AM CDT): No longer seeing counselor. Still seeing organizational psychologist: Adair Yun at [facility] in [place]. Difficulty taking medications per MOP confidentially on phone during appt. Eating disorder, unspecified 08/08/2015 Assessment & Plan (12/02/2023 3:28 PM CDT): Pt denies having this Resolved Problems Problem Noted Date Diagnosed Date [...] 020 Assessment & Plan (12/25/2018 8:37 AM SERVICE MECHANIC): Rapid flu swab: NEGATIVE This looks [...] vulnerable. Assessment & Plan (12/25/2018 8:37 AM SERVICE MECHANIC): Discussed and the patient refuses immunization today. Educated regarding the need to vaccinate for personal protection and to limit the viruses in the community to protect those most vulnerable. Flu-like symptoms 12/24/2018 10/31/2019 Assessment & Plan (12/25/2018 8:37 AM SERVICE MECHANIC): NEGATIVE rapid flu swab in office. [...] Encounters Date Type Department Care Team Description 05/13/2024 2:45 PM CDT Lab [facility] [address] [place] [facility] [address] 03/28/2024 12:45 PM SERVICE MECHANIC Office Visit [facility] [place] [address] [place] [address] Jodie Pérez NP COVID (Primary Dx) 02/26/2024 2:50 PM SERVICE MECHANIC Lab [facility] [address] [place] [address] from Last 3 Months Immunizations Immunization Administration [...] neg no FH cold sores SVT (supraventricular tachycardia) Family History Medical History Relation Name Comments Hypertension Father Diabetes Maternal Grandmother Lung cancer Maternal Grandmother Prostate cancer Paternal Grandfather Cancer Neg Hx no colon, 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 Denies 11/21/2023 Comments No Sex and Gender Information Value Date Recorded Sex Assigned at Not on file Legal Sex Female 11:47 AM SERVICE MECHANIC Gender Identity Female 11/15/2021 7:51 PM CDT Sexual Orientation Straight 11/15/2021 7: 51 PM CDT Obstetrics History Para Term AB IAB SAB Ectopic Multiple Livin g Live Births 1 0 0 0 0 0 0 0 0 0 0 Date Outcome GA Total Labor Labor/2nd/3rd Weight Sex Type Anes PTL Natlaia A1 A5 Name Clin Last Filed Vital Signs Vital Sign Reading Time Taken Comments Blood Pressure 116/64 03/28/2024 12:44 PM SERVICE MECHANIC Pulse 79 03/28/2024 12:44 PM SERVICE MECHANIC Temperature 36.6 C (97.9 F) 03/28/2024 12:44 PM SERVICE MECHANIC Respiratory Rate 18 03/28/2024 12:4 4 PM SERVICE MECHANIC Oxygen Saturation 99% 03/28/2024 12: 44 PM SERVICE MECHANIC Inhaled Oxygen Concentration - - Weight 61.1 kg (134 lb 12.8 oz) 025 12:44 PM SERVICE MECHANIC Height 157.5 cm (5' 2 ) 03/28/2024 12:4 4 PM SERVICE MECHANIC Body Mass Index 24.66 03/28/2024 12:44 PM SERVICE MECHANIC Plan of Treatment Health Maintenance Due [...] 2023-2 5 season) 2023 09/17/2020 Influenza Vaccine (Season Ended) 2024 03/17/19 13 Cervical Cancer Screening 12/01/2024 12/02/2023 Chlamydia and [...] Procedure Name Priority Date/Time Associated Diagnosis Comments DIFFERENTIAL AUTO Routine 05/13/2024 2:4 2 PM CDT VITAMIN D 25 HYDROXY Routine 05/13/2024 2:42 PM CDT CBC WITH AUTO DIFFERENTIAL Routine 05/13/2024 2:42 PM CDT RPR Routine 05/13/2024 2:42 PM CDT HIV 1/2 ANTIBODY PLUS P24 ANTIGEN Routine 05/13/2024 2:42 PM CDT POC INFLUENZA A/B, COVID-19 ANTIGEN Routine 03/28/2024 1:01 PM SERVICE MECHANIC COVID POCT RAPID STREP Routine 03/28/2024 1:01 PM SERVICE MECHANIC COVID ANTIBODY SCREEN Routine 02/26/2024 2:51 PM SERVICE MECHANIC DIFFERENTIAL AUTO Routine 02/26/2024 2:5 1 PM SERVICE MECHANIC FERRITIN Routine 02/26/2024 2:51 PM SERVICE MECHANIC HEMOGLOBIN A1C Routine 02/26/2024 2:51 PM SERVICE MECHANIC VITAMIN D 25 HYDROXY Routine 02/26/2024 2:51 PM SERVICE MECHANIC ABO/RH Routine 02/26/2024 2:51 PM SERVICE MECHANIC CBC WITH AUTO DIFFERENTIAL Routine 02/26/2024 2:51 PM SERVICE MECHANIC HEPATITIS C ANTIBODY Routine 02/26/2024 2:51 PM SERVICE MECHANIC HIV 1/2 ANTIBODY PLUS P24 ANTIGEN Routine 02/26/2024 2:51 PM SERVICE MECHANIC RUBELLA IGG Routine 02/26/2024 2:51 PM SERVICE MECHANIC HEPATITIS B SURFACE ANTIGEN Routine 02/26/2024 2:51 PM SERVICE MECHANIC RPR Routine 02/26/2024 2:51 PM SERVICE MECHANIC N. GONORRHOEAE/C. TRACHOMATIS AMPLIFICATION Routine 12/02/2023 4:42 PM CDT PAP, REFLEX HPV Routine 12/02/2023 4:42 PM CDT Encounter for supervision of normal first in first trimester from Last 3 Months or Most Recently Relevant to Health Maintenance Results * (ABNORMAL) Differential, auto (05/13/2024 2:42 PM CDT) Neutrophil abs 10.48(H) 1.50 - 6.50 K/cumm Comment:Testing performed by : [address] [address] Imm gran abs 0.23(H) 0.00 - 0.10 K/cumm [facility] ([facility]) Comment:Testing performed by : [address] [address] Lymphocyte abs 2.40 0.80 - 3.30 K/cumm [facility] ([facility]) Comment:Testing performed by : [facility], [address] [place] [address]., [address] Monocyte abs 0.85(H) 0.20 - 0.80 K/cumm [facility] ([facility]) Comment:Testing performed by : [address] [address] Eosinophil abs 0.07 0.00 - 0.50 K/cumm [facility] ([facility]) Comment:Testing performed by : [facility], [address], [place]., [address] Basophil abs 0.07 0.00 - 0.10 K/cumm [facility] ([facility]) Comment:Testing performed by : [facility], [address] [place] [address]., [address] Neutrophil pct 74.4 % [facility] ([facility]) Comment: Interpretive Data Percent cell count reference ranges are not reported, since discordance with absolute values may lead to misinterpretation of CBC data. Current Interpretive Data was last revised on 2017. Testing performed by: [facility], [address] [place] [address]., [address] Imm gran pct 1.6 % [facility] ([facility]) Comment: Interpretive Data Percent cell count reference ranges are not reported, since discordance with absolute values may lead to misinterpretation of CBC data. Current Interpretive Data was last revised on 2017. Testing performed by: [facility], [address] [place] [address]., [address] Lymphocyte pct 17.0 % [facility] ([facility]) Comment: Interpretive Data Percent cell count reference ranges are not reported, since discordance with absolute values may lead to misinterpretation of CBC data. Current Interpretive Data was last revised on 2017. Testing performed by: [address] [address] Monocyte pct 6.0 % [facility] ([facility]) Comment: Interpretive Data Percent cell count reference ranges are not reported, since discordance with absolute values may lead to misinterpretation of CBC data. Current Interpretive Data was last revised on 2017. Testing performed by: [address] [address] Eosinophil pct 0.5 % [facility] ([facility]) Comment: Interpretive Data Percent cell count reference ranges are not reported, since discordance with absolute values may lead to misinterpretation of CBC data. Current Interpretive Data was last revised on 2017. Testing performed by: [address] [address] Basophil pct 0.5 % [facility] ([facility]) Comment: Interpretive Data Percent cell count reference ranges are not reported, since discordance with absolute values may lead to misinterpretation of CBC data. Current Interpretive Data was last revised on 2017. Testing performed by: [address], [address] Blood 05/13/2024 2:42 PM CDT 05/13/2024 8:10 PM CDT us Dorita Valdes MD LAB BLOOD ORDERABLES Fin al Result Performing Organization Address [facility] de Phone Number [facility] ([place]) [address] [place] [address] * HIV 1/2 Antibody plus p24 Antigen Blood (05/13/2024 2:42 PM CDT) Pathologist [facility] HIV 1/2 ab + p24 ag Nonreactive Nonreactive Comment: Nonreactive for HIV-1 antigen and HIV-1/HIV-2 antibodies. No laboratory evidence of HIV infection. If acute HIV infection is suspected, consider testing for HIV-1 RNA. Testing performed by: [address], [address] Blood 05/13/2024 2:42 PM CDT 05/13/2024 7:45 PM CDT us Dorita Valdes MD LAB MICROBIOLOGY - GENER AL ORDERABLES Final Result Performing Organization Address [facility] de Phone Number [facility] ([place]) 1 [facility] [place] [address] * (ABNORMAL) CBC with auto differential (05/13/2024 2:42 PM CDT) Pathologist [facility] WBC 14.10(H) 3.80 - 9.90 K/cumm Comment:Testing performed by : [address], [address] Hgb 13.3 11.9 - 15.5 g/dL [facility] ([facility]) Comment:Testing performed by : [address], [address] Hct 40.2 35.6 - 45.5 % [facility] ([facility]) Comment:Testing performed by : [address] [place]., [address] Plt 303 150 - 400 K/cumm [facility] ([facility]) Comment:Testing performed by : [facility], [address] [place] [address], [address] MPV 10.5 9.1 - 12.3 fL [facility] ([facility]) Comment:Testing performed by : [facility], [address] [place] [address], [address] RBC 3.98 3.90 - 5.20 M/cumm [facility] ([facility]) Comment:Testing performed by : [address], [address] MCV 101.0(H) 81.3 - 96.4 fL [facility] ([facility]) Comment:Testing performed by : [address], [address] MCH 33.4(H) 27.1 - 33.3 pg [facility] ([facility]) Comment:Testing performed by : [address], [address] MCHC 33.1 32.3 - 35.7 g/dL [facility] ([facility]) Comment:Testing performed by : [address], [address] RDW CV 13.2 11.1 - 14.9 % [facility] ([facility]) Comment:Testing performed by : [address], [address] RDW SD 49.6(H) 35.7 - 48.1 fL [facility] ([facility]) Comment:Testing performed by : [address], [address] NRBC abs 0.00 0.00 - 0.01 K/cumm [facility] ([facility]) Comment:Testing performed by : [address], [address] Blood 05/13/2024 2:42 PM CDT 05/13/2024 8:10 PM CDT us Dorita Valdes MD LAB BLOOD ORDERABLES Fin al Result [facility] ([facility]) 1 [facility] [place] [address] * Vitamin D 25 hydroxy (05/13/2024 2:42 PM CDT) [facility] Vitamin D 25-OH 61 30 - 80 ng/mL Comment:Testing performed by : [facility], [address] [place] [address], [address] Blood 05/13/2024 2:42 PM CDT 05/13/2024 8:10 PM CDT us Dorita Valdes MD LAB BLOOD ORDERABLES Fin al Result Performing Organization Address [facility]/ZIP Co de Phone Number [facility] ([place]) [address] [place] [address] * RPR Blood (05/13/2024 2:42 PM CDT) [facility] RPR Nonreactive Nonreactive Comment:Testing performed by : [facility], [address] [place] [address], [address] Blood 05/13/2024 2:42 PM CDT 05/13/2024 8:10 PM CDT us Dorita Valdes MD LAB MICROBIOLOGY - GENER AL ORDERABLES Final Result Performing Organization Address [facility] Co de Phone Number [facility] ([place]) 1 [facility] [place] [address] * (ABNORMAL) POC Influenza A/B, COVID-19 antigen (03/28/2024 1:01 PM SERVICE MECHANIC) [facility] Influenza A Ag, POC Negative Negative [facility] Influenza B Ag, POC Negative Negative [facility] COVID-19 Ag POC Positive(A) Presumptive Negative, Invalid [facility] Nasal 03/28/2024 1:01 PM SERVICE MECHANIC us Jodie Pérez DIRECTOR OF NURSING POINT OF CARE TEST ORDERABLES Final Result Performing Organization Address City/[facility]/ZIP Co de Phone Number [facility] [address] [place] [address], [facility] * POCT rapid strep A (03/28/2024 1:01 PM SERVICE MECHANIC) [facility] Rapid Strep A, POC Negative Negative [facility] Swab 03/28/2024 1:01 PM SERVICE MECHANIC Jodie Pérez NP POINT OF CARE TEST ORDERABLES Final Result Performing Organization Address [facility] de Phone Number [facility] [address] [place] [address], [facility] * (ABNORMAL) Differential, auto (02/26/2024 2:51 PM SERVICE MECHANIC) [facility] Neutrophil abs 12.3(H) 1.5 - 6.5 K/cumm Comment:Testing performed by : [facility], [address] [place] [address]., [address] Imm gran abs 0.4(H) 0.0 - 0.1 K/cumm [facility] ([facility]) Comment:Testing performed by : [facility], [address] [place] [address]., [address] Lymphocyte abs 2.1 0.8 - 3.3 K/cumm [facility] ([facility]) Comment:Testing performed by : [facility], [address] [place] [address]., [address] Monocyte abs 0.6 0.2 - 0.8 K/cumm [facility] ([facility]) Comment:Testing performed by : [facility], [address] [place] [address]., [address] Eosinophil abs 0.2 0.0 - 0.5 K/cumm [facility] ([facility]) Comment:Testing performed by : [address] [address] Basophil abs 0.1 0.0 - 0.1 K/cumm [facility] ([facility]) Comment:Testing performed by : [address], [address] Neutrophil pct 78.3 % [facility] ([facility]) Comment: Interpretive Data Percent cell count reference ranges are not reported, since discordance with absolute values may lead to misinterpretation of CBC data. Current Interpretive Data was last revised on 2017. Testing performed by: [facility], [address] [place] [address]., [address] Imm gran pct 2.4 % [facility] ([facility]) Comment: Interpretive Data Percent cell count reference ranges are not reported, since discordance with absolute values may lead to misinterpretation of CBC data. Current Interpretive Data was last revised on 2017. Testing performed by: [facility], [address] [place] [address]., [address] Lymphocyte pct 13.6 % [facility] ([facility]) Comment: Interpretive Data Percent cell count reference ranges are not reported, since discordance with absolute values may lead to misinterpretation of CBC data. Current Interpretive Data was last revised on 2017. Testing performed by: [address] [address] Monocyte pct 4.0 % [facility] ([facility]) Comment: Interpretive Data Percent cell count reference ranges are not reported, since discordance with absolute values may lead to misinterpretation of CBC data. Current Interpretive Data was last revised on 2017. Testing performed by: [address] [address] Eosinophil pct 1.3 % [facility] ([facility]) Comment: Interpretive Data Percent cell count reference ranges are not reported, since discordance with absolute values may lead to misinterpretation of CBC data. Current Interpretive Data was last revised on 2017. Testing performed by: [address] [address] Basophil pct 0.4 % [facility] ([facility]) Comment: Interpretive Data Percent cell count reference ranges are not reported, since discordance with absolute values may lead to misinterpretation of CBC data. Current Interpretive Data was last revised on 2017. Testing performed by: [address] [address] Blood 02/26/2024 2:51 PM SERVICE MECHANIC 02/26/2024 2:51 PM SERVICE MECHANIC Dorita Valdes MD LAB BLOOD ORDERABLES Fin al Result Performing Organization Address City/[facility]/ZIP Co de Phone Number [facility] ([place]) [address] [place] [address] * HIV 1/2 Antibody plus p24 Antigen Blood (02/26/2024 2:51 PM SERVICE MECHANIC) [facility] HIV 1/2 ab + p24 ag Nonreactive Nonreactive Comment: Nonreactive for HIV-1 antigen and HIV-1/HIV-2 antibodies. No laboratory evidence of HIV infection. If acute HIV infection is suspected, consider testing for HIV-1 RNA. Testing performed by: [address], [address] Blood 02/26/2024 2:51 PM SERVICE MECHANIC 02/26/2024 2:54 PM SERVICE MECHANIC Dorita Valdes MD LAB MICROBIOLOGY - GENER AL ORDERABLES Final Result Performing Organization Address [facility] Co de Phone Number [facility] ([place]) 1 [facility] [place] [address] * (ABNORMAL) CBC with auto differential (02/26/2024 2:51 PM SERVICE MECHANIC) [facility] WBC 15.7(H) 3.8 - 9.9 K/cumm Comment:Testing performed by : [address] [address] Hgb 10.9(L) 11.9 - 15.5 g/dL [facility] ([place]) Comment:Testing performed by : [address] [address] Hct 34.0(L) 35.6 - 45.5 % [facility] ([facility]) Comment:Testing performed by : [address] [address] Plt 291 150 - 400 K/cumm [facility] ([place]) Comment:Testing performed by : [address], [address] MPV 10.3 9.1 - 12.3 fL [facility] ([facility]) Comment:Testing performed by : [facility], [address] [place] [address], [address] RBC 3.42(L) 3.90 - 5.20 M/cumm [facility] ([facility]) Comment:Testing performed by : [facility], [address] [place] [address], [address] MCV 99.4(H) 81.3 - 96.4 fL [facility] ([facility]) Comment:Testing performed by : [facility], [address] [place] [address], [address] MCH 31.9 27.1 - 33.3 pg [facility] ([facility]) Comment:Testing performed by : [facility], [address] [place] [address], [address] MCHC 32.1(L) 32.3 - 35.7 g/dL [facility] ([facility]) Comment:Testing performed by : [address], [address] RDW CV 12.9 11.1 - 14.9 % [facility] ([place]) Comment:Testing performed by : [facility], [address] [place] [address], [address] RDW SD 47.0 35.7 - 48.1 fL [facility] ([facility]) Comment:Testing performed by : [address], [address] NRBC abs 0.00 0.00 - 0.01 K/cumm [facility] ([facility]) Comment:Testing performed by : [address], [address] Blood 02/26/2024 2:51 PM SERVICE MECHANIC 02/26/2024 2:51 PM SERVICE MECHANIC us Dorita Valdes MD LAB BLOOD ORDERABLES Fin al Result [facility] ([place]) 1 [facility] Department [place] [address] * Hepatitis C antibody Blood (02/26/2024 2:51 PM SERVICE MECHANIC) Hep C Ab Nonreactive Nonreactive Comment: Interpretive [...] last revised on 2019. Testing performed by: [facility], [address] [place] [address]., [address] Blood 02/26/2024 2:51 PM SERVICE MECHANIC 02/26/2024 2:54 PM SERVICE MECHANIC us Dorita Valdes MD LAB MICROBIOLOGY - GENER AL ORDERABLES Final Result Performing Organization Address City/[facility]/ZIP Co de Phone Number [facility] ([place]) 1 [facility] [place] [address] * ABO/Rh (02/26/2024 2:51 PM SERVICE MECHANIC) ABO/Rh O Positive Blood 02/26/2024 2:51 PM SERVICE MECHANIC 02/27/2024 3:10 PM SERVICE MECHANIC us Dorita Valdes MD LAB BLOOD BANK TEST ORDE RABLES Final Result Performing Organization Address [facility] Co de Phone Number [facility] ([place]) 1 [facility] [place] [address] * Vitamin D 25 hydroxy (02/26/2024 2:51 PM SERVICE MECHANIC) Vitamin D 25-OH 46 30 - 80 ng/mL Comment:Testing performed by : [facility], [address] [place] [address], [place]., [address] Blood 02/26/2024 2:51 PM SERVICE MECHANIC 02/26/2024 2:54 PM SERVICE MECHANIC Dorita Valdes MD LAB BLOOD ORDERABLES Fin al Result Performing Organization Address City/[facility]/ZIP Co de Phone Number [facility] ([place]) 1 [facility] [place] [address] * Rubella IgG antibody Blood (02/26/2024 2:51 PM SERVICE MECHANIC) Rubella IgG Reactive Comment: Reactive: Results suggest response to immunization or prior exposure to the virus. Testing performed by: [facility], [address] [place] [address] Blood 02/26/2024 2:51 PM SERVICE MECHANIC 02/27/2024 10:00 AM SERVICE MECHANIC us Dorita Valdes MD LAB MICROBIOLOGY - GENER AL ORDERABLES Final Result [facility] ([place]) 1 [place] [address] * RPR Blood (02/26/2024 2:51 PM SERVICE MECHANIC) Pathologist [facility] RPR Nonreactive Nonreactive Comment:Testing performed by : [facility], [address] [place] [address]., [address] Blood 02/26/2024 2:51 PM SERVICE MECHANIC 02/26/2024 2:53 PM SERVICE MECHANIC us Dorita Valdes MD LAB MICROBIOLOGY - GENER AL ORDERABLES Final Result Performing Organization Address City/[facility]/ZIP Co de Phone Number [facility] ([place]) 1 [facility] [place] [address] * Hepatitis B Surface Antigen Blood (02/26/2024 2:51 PM SERVICE MECHANIC) HepBsAg Nonreactive Nonreactive Comment:Testing performed by : [facility], [address] [place] [address], [place]., [address] Blood 02/26/2024 2:51 PM SERVICE MECHANIC 02/26/2024 2:54 PM SERVICE MECHANIC us Dorita Valdes MD LAB MICROBIOLOGY - GENER AL ORDERABLES Final Result [facility] ([place]) 1 [facility] [place] [address] * Antibody screen (02/26/2024 2:51 PM SERVICE MECHANIC) Lexii, indirect, Gel Interpretation Negative ABSC Blood 02/26/2024 2:51 PM SERVICE MECHANIC 02/27/2024 3:10 PM SERVICE MECHANIC us Dorita Valdes MD LAB BLOOD BANK TEST ORDE RABLES Final Result Performing Organization Address [facility] Co de Phone Number [facility] ([place]) [address] [place] [address] * Hemoglobin A1c (02/26/2024 2:51 PM SERVICE MECHANIC) [facility] Hgb A1C 4.9 4.0 - 5.6 % Comment:Testing performed by : [address] [address] Estimated Average Glucose 94 mg/dL [facility] ([place]) Comment: The ADA recommends reporting an estimated Average Glucose (eAG) with all Hemoglobin A1c results using the equation derived from a study of 507 normal and diabetic adults. Minority populations were underrepresented and children were not included. (Diabetes Care 31:4509-0767, 2008). The eAG is not equivalent to a fasting glucose. Testing performed by: [address] [place] [address] Blood 02/26/2024 2:51 PM SERVICE MECHANIC 02/26/2024 2:55 PM SERVICE MECHANIC us Dorita Valdes MD LAB BLOOD ORDERABLES Fin al Result Performing Organization Address [facility] Co de Phone Number [facility] ([place]) [address] [place] [address] * Ferritin (02/26/2024 2:51 PM SERVICE MECHANIC) [facility] Ferritin 16 15 - 150 ng/mL Comment:Testing performed by : [address] [place] [address] Blood 02/26/2024 2:51 PM SERVICE MECHANIC 02/26/2024 2:55 PM SERVICE MECHANIC us Dorita Valdes MD LAB BLOOD ORDERABLES Fin al Result [facility] ([place]) 1 [facility] Department [place] [address] * (ABNORMAL) Pap, reflex HPV (12/02/2023 4:42 [...] clinical correlation and follow-up as clinically appropriate Manager [facility] [employer] Comment: PCM, CT(ASCP) CT Screening Location: [place] [address] [place] [address] Pathologist Stephane Agosto Comment: John Ulloa M.D., [...] MD LAB CYTOLOGY ORDERA BLES Final Result [facility] [address] [place] [address] * N. gonorrhoeae/C. trachomatis Amplification (12/02/2023 4:42 PM CDT) C. trachomatis RNA NOT DETECTED NOT DETECTED [facility] N. gonorrhoeae RNA NOT DETECTED NOT DETECTED [facility] Comment [facility] Comment: The analytical performance characteristics of this assay, when used to test SurePath(TM) specimens have been determined by [employer]. The modifications have not been cleared or approved by the FDA. This assay has been validated pursuant to the CLIA regulations and is used for clinical purposes. For additional information, please refer to https://education.[employer]/faq/DVX311 (This link is being provided for information/ educational purposes only.) 12/02/2023 4:42 PM CDT 12/03/2023 4:33 AM CDT Vaishali Drake MD LAB MICROBIOLOGY - GENERAL ORDERABLES Final Result Performing Organization Address [facility] Co de Phone Number [place] [address] [place] [address] from Last 3 Months or Most Recently Relevant to Health Maintenance Additional Health Concerns Infection Onset Date Last Indicated COVID: Recovered Comment:Added based on recent COVID infection. 04/07/2024 025 Insurance ANTHEM ACCESS CHOICE [place] [employer] CIG[employer] OPEN ACCESS [employer] Care Teams Curb Worker Relationship Specialty Start Date End Date Carlotta Degroot NP [address] [place] [address] PCP - General Internal Medicine 11/21/23
--- OUTSIDE RECORDS SUMMARY | 2024-05-25 23:44 | XMS_ITS | Referral Summary ---
Author Organization [facility] Address [address] [place] [address] Care Team Providers Care Teaching Artist Name Role Phone Carlotta Degroot NP Primary Care Provider [phone] Encounters Date Type Department Care Team Description 05/13/2024 2:45 PM CDT Lab [facility] [address] [place] [address] 03/28/2024 12:45 PM NURSING CLERK Office Visit [facility] [place] [address] [place] [address] Jodie Pérez NP COVID (Primary Dx) 02/26/2024 2:50 PM NURSING CLERK Lab [facility] [address] [place] [address] from Last 3 Months Allergies Active Allergy [...] SI She goes through Carlotta Degroot at [facility]. SVT (supraventricular tachycardia) 10/16/2022 Assessment & Plan (12/02/2023 3:22 PM CDT): She has a h/o palpations. She has done holter monitor before The last was about 3 months ago Will see if she can see Dr. Leal during If not, will refer to [facility]. Manic behavior 10/17/2021 Assessment & Plan (12/23/2023 2:19 PM NURSING CLERK): She is going to continue on with [...] to converse. Verified that she has appt w/[facility] 11/20/21. Verified that she will go to [...] No longer seeing counselor but still sees psychiatric social worker supervisor Adair Yun at [facility] in [place]. MOP unable to control Shauna at this time during appt. Not tearful but flat/blunt affect. Denies thoughts of SI/HI on direct questioning. Assessment & Plan (10/09/2018 10:12 AM CDT): No longer seeing counselor. Still seeing psychiatric social worker supervisor: Adair Yun at [facility] in [place]. Difficulty taking medications per MOP confidentially on [...] 020 Assessment & Plan (12/25/2018 8:37 AM NURSING CLERK): Rapid flu swab: NEGATIVE This looks viral [...] vulnerable. Assessment & Plan (12/25/2018 8:37 AM NURSING CLERK): Discussed and the patient refuses immunization today. Educated regarding the need to vaccinate for personal protection and to limit the viruses in the community to protect those most vulnerable. Flu-like symptoms 12/24/2018 10/31/2019 Assessment & Plan (12/25/2018 8:37 AM NURSING CLERK): NEGATIVE rapid flu swab in office. School [...] on file Legal Sex Female 11:47 AM NURSING CLERK Gender Identity Female 11/15/2021 7:51 PM CDT Sexual Orientation Straight 11/15/2021 7: 51 PM CDT Last Filed Vital Signs Vital Sign Reading Time Taken Comments Blood Pressure 116/64 03/28/2024 12:44 PM NURSING CLERK Pulse 79 03/28/2024 12:44 PM NURSING CLERK Temperature 36.6 C (97.9 F) 03/28/2024 12:44 PM NURSING CLERK Respiratory Rate 18 03/28/2024 12:4 4 PM NURSING CLERK Oxygen Saturation 99% 03/28/2024 12: 44 PM NURSING CLERK Inhaled Oxygen Concentration - - Weight 61.1 kg (134 lb 12.8 oz) 025 12:44 PM NURSING CLERK Height 157.5 cm (5' 2 ) 03/28/2024 12:4 4 PM NURSING CLERK Body Mass Index 24.66 03/28/2024 12:44 PM NURSING CLERK Plan of Treatment Not on file Procedures [...] A/B, COVID-19 ANTIGEN Routine 03/28/2024 1:01 PM NURSING CLERK COVID POCT RAPID STREP Routine 03/28/2024 1:01 PM NURSING CLERK COVID ANTIBODY SCREEN Routine 02/26/2024 2:51 PM NURSING CLERK DIFFERENTIAL AUTO Routine 02/26/2024 2:5 1 PM NURSING CLERK FERRITIN Routine 02/26/2024 2:51 PM NURSING CLERK HEMOGLOBIN A1C Routine 02/26/2024 2:51 PM NURSING CLERK VITAMIN D 25 HYDROXY Routine 02/26/2024 2:51 PM NURSING CLERK ABO/RH Routine 02/26/2024 2:51 PM NURSING CLERK CBC WITH AUTO DIFFERENTIAL Routine 02/26/2024 2:51 PM NURSING CLERK HEPATITIS C ANTIBODY Routine 02/26/2024 2:51 PM NURSING CLERK HIV 1/2 ANTIBODY PLUS P24 ANTIGEN Routine 02/26/2024 2:51 PM NURSING CLERK RUBELLA IGG Routine 02/26/2024 2:51 PM NURSING CLERK HEPATITIS B SURFACE ANTIGEN Routine 02/26/2024 2:51 PM NURSING CLERK RPR Routine 02/26/2024 2:51 PM NURSING CLERK N. GONORRHOEAE/C. TRACHOMATIS AMPLIFICATION Routine 12/02/2023 4:42 PM CDT PAP, REFLEX HPV Routine 12/02/2023 4:42 PM CDT Encounter for supervision of normal first in first trimester from Last 3 Months or Most Recently Relevant to Health Maintenance Results * (ABNORMAL) Differential, auto (05/13/2024 2:42 PM CDT) Neutrophil abs 10.48(H) 1.50 - 6.50 K/cumm Comment:Testing performed by : [address] [address] Imm gran abs 0.23(H) 0.00 - 0.10 K/cumm [facility] ([facility]) Comment:Testing performed by : [address], [address] Lymphocyte abs 2.40 0.80 - 3.30 K/cumm [facility] ([facility]) Comment:Testing performed by : [address] [address] Monocyte abs 0.85(H) 0.20 - 0.80 K/cumm [facility] ([facility]) Comment:Testing performed by : [address] [address] Eosinophil abs 0.07 0.00 - 0.50 K/cumm [facility] ([facility]) Comment:Testing performed by : [address], [address] Basophil abs 0.07 0.00 - 0.10 K/cumm [facility] ([facility]) Comment:Testing performed by : [address], [address] Neutrophil pct 74.4 % [facility] ([facility]) Comment: Interpretive Data Percent cell count reference ranges are not reported, since discordance with absolute values may lead to misinterpretation of CBC data. Current Interpretive Data was last revised on 2017. Testing performed by: [facility], [address] [place] [address]., [address] Imm gran pct 1.6 % [facility] ([facility]) Comment: Interpretive Data Percent cell count reference ranges are not reported, since discordance with absolute values may lead to misinterpretation of CBC data. Current Interpretive Data was last revised on 2017. Testing performed by: [address] [address] Lymphocyte pct 17.0 % [facility] ([facility]) Comment: Interpretive Data Percent cell count reference ranges are not reported, since discordance with absolute values may lead to misinterpretation of CBC data. Current Interpretive Data was last revised on 2017. Testing performed by: [address] [address] Monocyte pct 6.0 % [facility] ([facility]) Comment: Interpretive Data Percent cell count reference ranges are not reported, since discordance with absolute values may lead to misinterpretation of CBC data. Current Interpretive Data was last revised on 2017. Testing performed by: [address] [address] Eosinophil pct 0.5 % [facility] ([facility]) Comment: Interpretive Data Percent cell count reference ranges are not reported, since discordance with absolute values may lead to misinterpretation of CBC data. Current Interpretive Data was last revised on 2017. Testing performed by: [address] [address] Basophil pct 0.5 % [facility] ([facility]) Comment: Interpretive Data Percent cell count reference ranges are not reported, since discordance with absolute values may lead to misinterpretation of CBC data. Current Interpretive Data was last revised on 2017. Testing performed by: [address] [address] Blood 05/13/2024 2:42 PM CDT 05/13/2024 8:10 PM CDT us Dorita Valdes MD LAB BLOOD ORDERABLES Fin al Result Performing Organization Address City/[facility]/ZIP Co de Phone Number [facility] ([place]) [address] [place] [address] * HIV 1/2 Antibody plus p24 Antigen Blood (05/13/2024 2:42 PM CDT) Pathologist [facility] HIV 1/2 ab + p24 ag Nonreactive Nonreactive Comment: Nonreactive for HIV-1 antigen and HIV-1/HIV-2 antibodies. No laboratory evidence of HIV infection. If acute HIV infection is suspected, consider testing for HIV-1 RNA. Testing performed by: [address], [address] Blood 05/13/2024 2:42 PM CDT 05/13/2024 7:45 PM CDT Dorita Valdes MD LAB MICROBIOLOGY - GENER AL ORDERABLES Final Result Performing Organization Address [facility] Co de Phone Number [facility] ([place]) 1 [facility] [place] [address] * (ABNORMAL) CBC with auto differential (05/13/2024 2:42 PM CDT) [facility] WBC 14.10(H) 3.80 - 9.90 K/cumm Comment:Testing performed by : [address], [address] Hgb 13.3 11.9 - 15.5 g/dL [facility] ([facility]) Comment:Testing performed by : [address], [address] Hct 40.2 35.6 - 45.5 % [facility] ([facility]) Comment:Testing performed by : [address], [address] Plt 303 150 - 400 K/cumm [facility] ([facility]) Comment:Testing performed by : [address], [address] MPV 10.5 9.1 - 12.3 fL [facility] ([facility]) Comment:Testing performed by : [facility], [address] [place] [address], [address] RBC 3.98 3.90 - 5.20 M/cumm [facility] ([facility]) Comment:Testing performed by : [facility], [address] [place] [address], [address] MCV 101.0(H) 81.3 - 96.4 fL [facility] ([facility]) Comment:Testing performed by : [facility], [address] [place] [address], [address] MCH 33.4(H) 27.1 - 33.3 pg [facility] ([facility]) Comment:Testing performed by : [address], [address] MCHC 33.1 32.3 - 35.7 g/dL [facility] ([facility]) Comment:Testing performed by : [address], [address] RDW CV 13.2 11.1 - 14.9 % [facility] ([facility]) Comment:Testing performed by : [address], [address] RDW SD 49.6(H) 35.7 - 48.1 fL [facility] ([facility]) Comment:Testing performed by : [address], [address] NRBC abs 0.00 0.00 - 0.01 K/cumm [facility] ([facility]) Comment:Testing performed by : [address], [address] Blood 05/13/2024 2:42 PM CDT 05/13/2024 8:10 PM CDT us Dorita Valdes MD LAB BLOOD ORDERABLES Fin al Result [facility] ([facility]) 1 [facility] [place] [address] * Vitamin D 25 hydroxy (05/13/2024 2:42 PM CDT) Vitamin D 25-OH 61 30 - 80 ng/mL Comment:Testing performed by : [facility], [address] [place] [address]., [address] Blood 05/13/2024 2:42 PM CDT 05/13/2024 8:10 PM CDT us Dorita Valdes MD LAB BLOOD ORDERABLES Fin al Result Performing Organization Address [facility]/ZIP Co de Phone Number [facility] ([place]) [address] [place] [address] [place] [address] * RPR Blood (05/13/2024 2:42 PM CDT) [facility] RPR Nonreactive Nonreactive Comment:Testing performed by : [facility], [address] [place] [address], [address] Blood 05/13/2024 2:42 PM CDT 05/13/2024 8:10 PM CDT us Dorita Valdes MD LAB MICROBIOLOGY - GENER AL ORDERABLES Final Result Performing Organization Address [facility] Co de Phone Number [facility] ([place]) [address] [place] [address] * (ABNORMAL) POC Influenza A/B, COVID-19 antigen (03/28/2024 1:01 PM NURSING CLERK) [facility] Influenza A Ag, POC Negative Negative [facility] Influenza B Ag, POC Negative Negative [facility] COVID-19 Ag POC Positive(A) Presumptive Negative, Invalid [facility] Nasal 03/28/2024 1:01 PM NURSING CLERK us Jodie Pérez NP POINT OF CARE TEST ORDERABLES Final Result Performing Organization Address [facility] Co de Phone Number [facility] [place] [address] * POCT rapid strep A (03/28/2024 1:01 PM NURSING CLERK) Rapid Strep A, POC Negative Negative [facility] Swab 03/28/2024 1:01 PM NURSING CLERK us Jodie Pérez NP POINT OF CARE TEST ORDERABLES Final Result [facility] [address] [place] [address], [facility] * (ABNORMAL) Differential, auto (02/26/2024 2:51 PM NURSING CLERK) Pathologist [facility] Neutrophil abs 12.3(H) 1.5 - 6.5 K/cumm Comment:Testing performed by : [facility], [address] [place] [address]., [address] Imm gran abs 0.4(H) 0.0 - 0.1 K/cumm [facility] ([facility]) Comment:Testing performed by : [address], [address] Lymphocyte abs 2.1 0.8 - 3.3 K/cumm [facility] ([facility]) Comment:Testing performed by : [facility], [address] [place] [address], [address] Monocyte abs 0.6 0.2 - 0.8 K/cumm [facility] ([facility]) Comment:Testing performed by : [facility], [address] [place] [address], [address] Eosinophil abs 0.2 0.0 - 0.5 K/cumm [facility] ([facility]) Comment:Testing performed by : [address] [address] Basophil abs 0.1 0.0 - 0.1 K/cumm [facility] ([facility]) Comment:Testing performed by : [address], [address] Neutrophil pct 78.3 % [facility] ([facility]) Comment: Interpretive Data Percent cell count reference ranges are not reported, since discordance with absolute values may lead to misinterpretation of CBC data. Current Interpretive Data was last revised on 2017. Testing performed by: [address], [address] Imm gran pct 2.4 % [facility] ([facility]) Comment: Interpretive Data Percent cell count reference ranges are not reported, since discordance with absolute values may lead to misinterpretation of CBC data. Current Interpretive Data was last revised on 2017. Testing performed by: [facility], [address] [place] [address]., [address] Lymphocyte pct 13.6 % [facility] ([facility]) Comment: Interpretive Data Percent cell count reference ranges are not reported, since discordance with absolute values may lead to misinterpretation of CBC data. Current Interpretive Data was last revised on 2017. Testing performed by: [facility], [address] [place] [address]., [address] Monocyte pct 4.0 % [facility] ([facility]) Comment: Interpretive Data Percent cell count reference ranges are not reported, since discordance with absolute values may lead to misinterpretation of CBC data. Current Interpretive Data was last revised on 2017. Testing performed by: [address], [address] Eosinophil pct 1.3 % [facility] ([facility]) Comment: Interpretive Data Percent cell count reference ranges are not reported, since discordance with absolute values may lead to misinterpretation of CBC data. Current Interpretive Data was last revised on 2017. Testing performed by: [address] [address] Basophil pct 0.4 % [facility] ([facility]) Comment: Interpretive Data Percent cell count reference ranges are not reported, since discordance with absolute values may lead to misinterpretation of CBC data. Current Interpretive Data was last revised on 2017. Testing performed by: [address] [address] Blood 02/26/2024 2:51 PM NURSING CLERK 02/26/2024 2:51 PM NURSING CLERK us Dorita Valdes MD LAB BLOOD ORDERABLES Fin al Result [facility] ([place]) 1 [facility] [place] [address] * HIV 1/2 Antibody plus p24 Antigen Blood (02/26/2024 2:51 PM NURSING CLERK) [facility] HIV 1/2 ab + p24 ag Nonreactive Nonreactive Comment: Nonreactive for HIV-1 antigen and HIV-1/HIV-2 antibodies. No laboratory evidence of HIV infection. If acute HIV infection is suspected, consider testing for HIV-1 RNA. Testing performed by: [address], [address] Blood 02/26/2024 2:51 PM NURSING CLERK 02/26/2024 2:54 PM NURSING CLERK us Dorita Valdes MD LAB MICROBIOLOGY - GENER AL ORDERABLES Final Result [facility] ([place]) 1 [facility] [place] [address] * (ABNORMAL) CBC with auto differential (02/26/2024 2:51 PM NURSING CLERK) [facility] WBC 15.7(H) 3.8 - 9.9 K/cumm Comment:Testing performed by : [facility], [address] [place] [address], [address] Hgb 10.9(L) 11.9 - 15.5 g/dL [facility] ([facility]) Comment:Testing performed by : [address], [address] Hct 34.0(L) 35.6 - 45.5 % [facility] ([facility]) Comment:Testing performed by : [address], [address] Plt 291 150 - 400 K/cumm [facility] ([facility]) Comment:Testing performed by : [address], [address] MPV 10.3 9.1 - 12.3 fL [facility] ([facility]) Comment:Testing performed by : [address], [address] RBC 3.42(L) 3.90 - 5.20 M/cumm [facility] ([facility]) Comment:Testing performed by : [address], [address] MCV 99.4(H) 81.3 - 96.4 fL [facility] ([place]) Comment:Testing performed by : [facility], [address] [place] [address], [address] MCH 31.9 27.1 - 33.3 pg [facility] ([facility]) Comment:Testing performed by : [facility], [address] [place] [address], [address] MCHC 32.1(L) 32.3 - 35.7 g/dL [facility] ([facility]) Comment:Testing performed by : [facility], [address] [place] [address], [address] RDW CV 12.9 11.1 - 14.9 % [facility] ([place]) Comment:Testing performed by : [facility], [address] [place] [address], [address] RDW SD 47.0 35.7 - 48.1 fL [facility] ([place]) Comment:Testing performed by : [facility], [address] [place] [address], [address] NRBC abs 0.00 0.00 - 0.01 K/cumm [facility] ([place]) Comment:Testing performed by : [facility], [address] [place] [address], [address] Blood 02/26/2024 2:51 PM NURSING CLERK 02/26/2024 2:51 PM NURSING CLERK Dorita Valdes MD LAB BLOOD ORDERABLES Fin al Result [facility] ([place]) 1 [facility] Department [place] [address] * Hepatitis C antibody Blood (02/26/2024 2:51 PM NURSING CLERK) Hep C Ab Nonreactive Nonreactive Comment: Interpretive [...] last revised on 2019. Testing performed by: [facility], [address] [place] [address]., [address] Blood 02/26/2024 2:51 PM NURSING CLERK 02/26/2024 2:54 PM NURSING CLERK us Dorita Valdes MD LAB MICROBIOLOGY - GENER AL ORDERABLES Final Result Performing Organization Address City/[facility]/ZIP Co de Phone Number [facility] ([place]) 1 [facility] [place] [address] * ABO/Rh (02/26/2024 2:51 PM NURSING CLERK) ABO/Rh O Positive Blood 02/26/2024 2:51 PM NURSING CLERK 02/27/2024 3:10 PM NURSING CLERK us Doirta Valdes MD LAB BLOOD BANK TEST ORDE RABLES Final Result Performing Organization Address [facility] de Phone Number [facility] ([place]) 1 [facility] [place] [address] * Vitamin D 25 hydroxy (02/26/2024 2:51 PM NURSING CLERK) Vitamin D 25-OH 46 30 - 80 ng/mL Comment:Testing performed by : [facility], [address] [place] [address], [place]., [address] Blood 02/26/2024 2:51 PM NURSING CLERK 02/26/2024 2:54 PM NURSING CLERK us Dorita Valdes MD LAB BLOOD ORDERABLES Fin al Result Performing Organization Address [facility] Co de Phone Number [facility] ([place]) 1 [facility] [employer] [place], [place] [address] * Rubella IgG antibody Blood (02/26/2024 2:51 PM NURSING CLERK) Rubella IgG Reactive Comment: Reactive: Results suggest response to immunization or prior exposure to the virus. Testing performed by: [facility], [address] [place]., [address] Blood 02/26/2024 2:51 PM NURSING CLERK 02/27/2024 10:00 AM NURSING CLERK us Doriat Valdes MD LAB MICROBIOLOGY - GENER AL ORDERABLES Final Result [facility] ([place]) 1 [facility] [place] [address] * RPR Blood (02/26/2024 2:51 PM NURSING CLERK) RPR Nonreactive Nonreactive Comment:Testing performed by : [facility], [address] [place] [address], [address] Blood 02/26/2024 2:51 PM NURSING CLERK 02/26/2024 2:53 PM NURSING CLERK us Dorita Valdes MD LAB MICROBIOLOGY - GENER AL ORDERABLES Final Result Performing Organization Address City/[facility] Co de Phone Number [facility] ([place]) 1 [facility] [place] [address] * Hepatitis B Surface Antigen Blood (02/26/2024 2:51 PM NURSING CLERK) Pathologist [facility] HepBsAg Nonreactive Nonreactive Comment:Testing performed by : [facility], [address] [place] [address], [address] Blood 02/26/2024 2:51 PM NURSING CLERK 02/26/2024 2:54 PM NURSING CLERK us Dorita Valdes MD LAB MICROBIOLOGY - GENER AL ORDERABLES Final Result [facility] ([place]) [address] [place] [address] * Antibody screen (02/26/2024 2:51 PM NURSING CLERK) Lexii, indirect, Gel Interpretation Negative ABSC Blood 02/26/2024 2:51 PM NURSING CLERK 02/27/2024 3:10 PM NURSING CLERK Dorita Valdes MD LAB BLOOD BANK TEST ORDE RABKENDELL Final Result Performing Organization Address [facility] Co de Phone Number [facility] ([place]) 1 [place] [address] * Hemoglobin A1c (02/26/2024 2:51 PM NURSING CLERK) Hgb A1C 4.9 4.0 - 5.6 % Comment:Testing performed by : [facility], [address] [place] [address]., [address] Estimated Average Glucose 94 mg/dL [facility] ([place]) Comment: The ADA recommends reporting an estimated Average Glucose (eAG) with all Hemoglobin A1c results using the equation derived from a study of 507 normal and diabetic adults. Minority populations were underrepresented and children were not included. (Diabetes Care 31:9462-2756, 2008). The eAG is not equivalent to a fasting glucose. Testing performed by: [facility], [address] [place] [address], [place]., [address] Blood 02/26/2024 2:51 PM NURSING CLERK 02/26/2024 2:55 PM NURSING CLERK Dorita Valdes MD LAB BLOOD ORDERABLES Fin al Result Performing Organization Address [facility] Co de Phone Number [facility] ([place]) 1 [place] [address] * Ferritin (02/26/2024 2:51 PM NURSING CLERK) Ferritin 16 15 - 150 ng/mL Comment:Testing performed by : [address] [place] [address] Blood 02/26/2024 2:51 PM NURSING CLERK 02/26/2024 2:55 PM NURSING CLERK Dorita Valdes MD LAB BLOOD ORDERABLES Fin al Result Performing Organization Address [facility]/ZIP Co de Phone Number [facility] ([place]) [address] [place] [address] Department [place] [address] * (ABNORMAL) Pap, reflex HPV (12/02/2023 4:42 [...] clinical correlation and follow-up as clinically appropriate [employer] Lead Que [facility] Jewel Agosto Comment: PCM, CT(ASCP) CT Screening Location: Wade Nava [facility] [place] [address] Pathologist Wade Agosto Comment: John Ulloa M.D., Board Certified in Anatomic Pathology and Cytopathology. (electronic signature) Comment Wade Agosto Comment: EXPLANATORY NOTE: The Pap is [...] MD LAB CYTOLOGY ORDERA BLES Final Result Performing Organization Address [facility]/ZIP Co de Phone Number WADE Agosto [address] [place] [address] * N. gonorrhoeae/C. trachomatis Amplification (12/02/2023 4:42 PM CDT) C. trachomatis RNA NOT DETECTED NOT DETECTED [employer] [facility] N. gonorrhoeae RNA NOT DETECTED NOT DETECTED [employer] [facility] Comment [employer] [facility] Comment: The analytical performance characteristics of this assay, when used to test SurePath(TM) specimens have been determined by [employer]. The modifications have not been cleared or approved by the FDA. This assay has been validated pursuant to the CLIA regulations and is used for clinical purposes. For additional information, please refer to https://education.[employer]/faq/SEK264 (This link is being provided for information/ educational purposes only.) 12/02/2023 4:42 PM CDT 12/03/2023 4:33 AM CDT Vaishali Drake MD LAB MICROBIOLOGY - GENERAL ORDERABLES Final Result [employer] [id number] [place] [address] from Last 3 Months or Most Recently Relevant to Health Maintenance Additional Health Concerns Infection Onset Date Last Indicated COVID: Recovered Comment:Added based on recent COVID infection. 04/07/2024 025 Insurance ANTHEM ACCESS CHOICE [place]UE [place]ESS [place] [facility] Care Teams Teaching Artist Relationship Specialty [place] [address] [place] [address] PCP - General Internal Medicine 11/21/23
--- OUTSIDE RECORDS SUMMARY | 2024-05-25 23:44 | XMS_ITS | Encounter Summary ---
Author Organization [facility] Address [address] [place] [address] Phone Care Team Providers Care Team Foreman Name Role Phone Mitchel Woods MD Primary Care Provider [phone] Carlotta Degroot NP Primary Care Provider [phone] Encounter Details Date Type Department Care Team (Late st Contact Info) Description 02/06/2020 Ophth Exam [facility] Ophthalmology [address] [place] [address] 1[address] [place] [address] Darrion Robert MD [address] [place], [place] [id number] Social History Tobacco Use Types Packs/Day Years Used Date Smoking Tobacco: Never Smokeless Tobacco: Never Alcohol Use Standard Drinks/Week Comments No 0 (1 standard drink = 0.6 oz pur e alcohol) PHQ-2 Answer Date Recorded PHQ-2 Total Score 0 11/01/2019 Comments No Sex and Gender Information Value Date Recorded Sex Assigned at Not on file Legal Sex Female 11:47 AM FORGE TENDER Gender Identity Female 11/15/2021 7:51 PM CDT Sexual Orientation Straight 11/15/2021 7: 51 PM CDT documented as of this encounter Plan of Treatment Not on file documented as of this encounter Visit Diagnoses Not on filedocumented in this encounter Additional Health Concerns Infection Onset Date Last Indicated Resolved Time COVID: Suspected 03/28/2024 03/28/2024 03/28/2024 1:02 PM FORGE TENDER COVID19 03/28/2024 03/28/2024 04/07/2024 3:07 AM FORGE TENDER COVID: Recovered Comment:Added based on recent COVID infection. 04/07/2024 05/13/2024 documented as of this encounter Eye Exam [...] heme, attached 360 w/o RD/RT Care Teams Team Foreman Relationship Specialty Start Date End Date Mitchel Woods MD [address] [place] [address] PCP - General Family Medicine 03/25/17 11/20/23 Carlotta Degroot NP [address] [place] [address] [place] [address] PCP - General Internal Medicine 11/21/23 documented as of this encounter
--- OUTSIDE RECORDS SUMMARY | 2024-05-25 23:44 | XMS_ITS | Clinical Summary ---
Author Organization [facility] Address [address] [place] [address] Phone Care Team Providers Care Flight Communications Officer Name Role Phone Mitchel Woods MD Primary Care Provider [phone] Social History Tobacco Use Types Packs/Day Years [...] of Treatment Not on file Care Teams Flight Communications Officer Relationship Specialty Start Date End Date Mitchel Woods [place] [address] PCP - General Internal Medicine 10/15/21
[2024-05-25 23:51] VITALS: BP 120/78; PULSE 99; BMI 25.6
--- NOTE | 2024-05-25 23:51 | OBADM ---
This patient, Shauna Peterson, admitted to the OB room OB Post 112 for observation. Patient/family oriented to hospital policies and general routines including ID bracelet, bed and alarms, visiting hours, pain management, procedures, bathroom and other care routines, personal items, smoking policy, room service/diet, and visiting hours. Patient/Family are encouraged to report perceived risks to care and to ask questions if they do not understand what they are told or what they should do.
[2024-05-25 23:55] VITALS: BP 117/87; PULSE 116
[2024-05-25 23:57] VITALS: BP 118/85; PULSE 103
[2024-05-25 23:59] VITALS: PULSE 103; O2SAT 97
[2024-05-26] VITALS (20 sets, daily range): BP systolic 113–134; BP diastolic 80–104; PULSE 80–122; O2SAT 96–100
--- NOTE | 2024-05-26 00:02 | PC.NURSE ---
Called and notified Dr. Valdes of pt's arrival to unit, symptoms, negative orthostatics, order for CBC recieved, if within range of 28 week CBC, pt may DC home
[2024-05-26 00:47] LABS: Basophils Absolute Auto 0.1 K/mm3 (0.0-0.1); Basophils Percent Auto 0.5 % (0.2-1.2); Eosinophils Absolute Auto 0.1 K/mm3 (0-0.3); Eosinophils Percent Auto 0.5 % (0-4.4); Hemoglobin 13.4 g/dL (12.0-15.0); Immature Granulocyte Absolute 0.38 K/mm3 (0.00-0.031); Immature Granulocyte Percent A 2.5 % (0-0.5); Lymphocytes Absolute Auto 2.09 K/mm3 (0.9-3.2); Lymphocytes Percent Auto 13.9 % (18.3-44.2); Mean Corpuscular HGB Conc 34.4 g/dl (32-36); Mean Corpuscular Hemoglobin 33.1 pg (26-34); Mean Corpuscular Volume 96.3 fl (80-100); Mean Platelet Volume 10.3 fl (7.4-10.4); Monocytes Absolute Auto 0.9 K/mm3 (0.1-0.6); Neutrophils Absolute Auto 11.5 K/mm3 (1.3-6.7); Neutrophils Percent Auto 76.6 % (45.5-73.1); Platelet Count Result 291 k/mm3 (150-375); Red Blood Count 4.05 M/mm3 (4.2-5.4); Red Cell Distribution Width 12.6 % (11.5-14.5); White Blood Count 15.1 K/mm3 (4.5-10.0)
[2024-05-26 01:10] LABS: Glucose Point of Care 131 mg/dl (65-105)
--- NOTE | 2024-05-30 22:21 | P.PNOB_ITS ---
OB - Triage/Final Diagnosis Visit Information Reason for evaluation: other (blurred vision) Comments/Additional reasons for admission: I have assessed the risk for this patient, Shauna Peterson, and determined that she would benefit from observation care. Evaluation Laboratory results: Laboratory Tests 05/26/24 05/26/24 00:14 01:08 WBC 15.1 H RBC 4.05 L Hgb 13.4 Hct 39.0 MCV 96.3 MCH 33.1 MCHC 34.4 RDW 12.6 Plt Count 291 MPV 10.3 Immature Gran % (Auto) 2.5 H Neut % (Auto) 76.6 H Lymph % (Auto) 13.9 L [place] % (Auto) 6.0 Eos % (Auto) 0.5 Baso % (Auto) 0.5 Lymph # (Auto) 2.09 [place] # (Auto) 0.9 H Eos # (Auto) 0.1 Baso # (Auto) 0.1 Abs Immat Gran (auto) 0.38 H Absolute Neuts (auto) 11.5 H Absolute Nucleated RBC 0.000 Nucleated RBC % 0.0 POC Capillary Glucose 131 H
== END 2024-05-26 01:22 | disposition home or self-care (01) ==
PROVIDERS: Admitting Provider Obstetrics & Gynecology Gynecology; Visit Provider Obstetrics & Gynecology Gynecology
DX: O99.891 Other specified diseases and conditions complicating pregnancy (principal); H53.8 Other visual disturbances; Z3A.36 36 weeks gestation of pregnancy
CPT/HCPCS: 36415; 82948; 85025; G0378; G0379

== ENCOUNTER 2024-06-14 04:52 | Inpatient (IN) | payer BC, MEDICAID, SELFPAY ==
[2024-06-14] VITALS (246 sets, daily range): BP systolic 79–159; BP diastolic 46–123; PULSE 25–150; RESP 16–20; TEMP 36.3–37.7; O2SAT 81–100; BMI 25.8
--- OUTSIDE RECORDS SUMMARY | 2024-06-14 05:00 | XMS_ITS | Encounter Summary ---
Author Organization [facility] Address [address] [place] [address] Phone Care Team Providers Care Powder Hand Name Role Phone Mitchel Woods MD Primary Care Provider [phone] Carlotta Degroot NP Primary Care Provider [phone] Encounter Details Date Type Department Care Team (Late st Contact Info) Description 02/06/2020 Ophth Exam [facility] Ophthalmology [address] [place] [address] 1st [place] [address] Darrion Robert MD [address] [place], [place] [id number] Social History Tobacco Use Types Packs/Day Years Used Date Smoking Tobacco: Never Smokeless Tobacco: Never Alcohol Use Standard Drinks/Week Comments No 0 (1 standard drink = 0.6 oz pur e alcohol) PHQ-2 Answer Date Recorded PHQ-2 Total Score 0 11/01/2019 Comments No Sex and Gender Information Value Date Recorded Sex Assigned at Not on file Legal Sex Female 11:47 AM TOOL AND DIE INSPECTOR Gender Identity Female 11/15/2021 7:51 PM CDT Sexual Orientation Straight 11/15/2021 7: 51 PM CDT documented as of this encounter Plan of Treatment Not on file documented as of this encounter Visit Diagnoses Not on filedocumented in this encounter Additional Health Concerns Infection Onset Date Last Indicated Resolved Time COVID: Suspected 03/28/2024 03/28/2024 03/28/2024 1:02 PM TOOL AND DIE INSPECTOR COVID19 03/28/2024 03/28/2024 04/07/2024 3:07 AM TOOL AND DIE INSPECTOR COVID: Recovered Comment:Added based on recent COVID [...] heme, attached 360 w/o RD/RT Care Teams Powder Hand Relationship Specialty Start Date End Date Mitchel Woods MD [address] [place] [address] PCP - General Family Medicine 03/25/17 11/20/23 Carlotta Degroot NP [address] [place] [address] [place] [address] PCP - General Internal Medicine 11/21/23 documented as of this encounter
--- OUTSIDE RECORDS SUMMARY | 2024-06-14 05:00 | XMS_ITS | Clinical Summary ---
Author Organization [facility] Address [address] [place] [address] Phone Care Team Providers Care Foxing Cutting Machine Operator Name Role Phone Mitchel Woods MD Primary Care Provider [phone] Allergies Active Allergy Reactions Criticality Noted Date [...] Encounters Date Type Department Care Team Description 05/25/2024 External Device Data STL ABSTRACTION Provider, Abstract 04/28/2024 1:00 PM CDT Initial [facility] Maternal Medicine [address] [place] [address] Lesley Webb MD High risk , antepartum (Primary Dx); Maternal mental disorder, antepartum; uterine contractions in third trimester, antepartum; Marijuana use during ; 32 weeks gestation of 04/28/2024 External Device Data STL ABSTRACTION Provider, Abstract 04/28/2024 External Device Data STL ABSTRACTION Provider, Abstract 04/27/2024 Abstract [facility] Maternal and Medicine [facility] [address] [place] [id number] Ana Herrera RN 04/22/2024 2:11 PM CDT - 04/22/2024 11:59 PM CDT Hospital Encounter [facility] [address] 3[address] [place] [address] Dorita Valdes MD Discharge Disposition: Home or Self Care 04/20/2024 External Device Data STL ABSTRACTION Provider, Abstract 04/20/2024 External Device Data STL ABSTRACTION Provider, Abstract 04/19/2024 Telephone [facility] Maternal and Medicine [facility] [address] [place] [address] Vishal Landon MD Appointment Notification 04/16/2024 Orders Only [facility] Maternal and Ground [address] [place] [address] Dorita Valdes MD labor in third trimester [...] 36.4 C (97.5 F) 03/19/2018 8:09 AM TILE LAYER HELPER Respiratory Rate 20 04/28/2024 1:02 PM CDT [...] (#1) 2023 CERVICAL CANCER SCREENING 12/09/2023 HPV/Cotest (21-29) 12/09/2023 PAP SMEAR 12/09/2023 HEPATITIS B VACCINES Completed 06/13/2003, 06/13/2003, 04/20/2003, [...] PM CDT STL COMP ----- Pat. Name: RAAD MELVINA Study Date: 04/22/2024 2:44pm Pat. NO: [id number] Referring MD: DORITA VALDES MD Site: [place] Gun Profiler: Johnna Thacker RDMS : 2000 Age: 23 ----- INDICATION ----- Anatomy Survey Family History of Other Condition MOB h/o SVT CODING ----- Diagnoses Z3A.31: Weeks of gestation Z84.89: Family history of other specified conditions Z36.3: Encounter for screening for malformations Procedures [id number]: Ultrasound, uterus, real time with image documentation, follow up, transabdominal approach per fetus HISTORY ----- OB History 1 MATERNAL ASSESSMENT ----- Physical Exam Initial weight 62 kg, 137 lb. Initial BMI 20.83 kg/m METHOD ----- Transabdominal ultrasound examination ----- [place] . Number of fetuses: 1 DATING ----- [...] 4 lb 0 oz EFW by Hadlock ([id number]) Head / Face / Neck Biometry: CM [...] Heart / Thorax RVOT view. 3-vessel view. 3-mrqxgn-lnidgux view. Aortic arch view. Bicaval view. Ductal [...] and date of were verified by the knurling machine operator prior to the exam IMPRESSION ----- 1. [...] Pat. Name:Masood HARPER Date:04/22/2024 2:44pm Pat. NO: [id number] MD:DORITA VALDES MD [facility]Johnna Thacker RDMS :2000Age:23 ----- INDICATION ----- Anatomy Survey Family History of Other Condition MOB h/o SVT CODING ----- Diagnoses Z3A.31: Weeks of gestation Z84.89: Family history of other specifiedconditions Z36.3: Encounter for screening formalformations Procedures [id number]: Ultrasound, uterus, real time withimage documentation, follow up, transabdominal approach per fetus HISTORY ----- OB History 1 MATERNAL ASSESSMENT ----- Physical Exam Initial weight 62 kg, 137 lb. Initial BMI 20.83kg/m METHOD ----- Transabdominal ultrasound examination ----- [place] . Number of fetuses: 1 DATING ----- Method of dating:based on stated ODILIA GA by prior [id number] w + 5 d ODILIA by prior [...] 4 lb 0 oz EFW by Hadlock ([id number]) Head / Face / Neck Biometry: CM [...] Heart / Thorax RVOT view. 3-vessel view. 1-czljat-tkflvpe view.Aortic arch view. Bicaval view. Ductal arch [...] and date of were verified by the knurling machine operator prior tothe exam IMPRESSION ----- 1. Single [...] from Last 3 Months Insurance MEDICAID [place] [address] BLUE ACCESS CHOICE [employer] ACCESS CHOICE [place] Advance Directives For more information, please contact: [phone] * Full Code (Latest Code Status on File) Date Activated Date Inactivated Comments 03/14/2018 11:58 PM 03/19/2018 2:58 PM * Full Code Date Activated Date Inactivated Comments 03/13/2018 5:12 PM 03/14/2018 6:16 PM Care Teams Foxing Cutting Machine Operator Relationship Specialty Start Date End Date Mitchel Woods MD PCP - General Family Practice 03/13/18
--- OUTSIDE RECORDS SUMMARY | 2024-06-14 05:00 | XMS_ITS | Clinical Summary ---
Author Organization [facility] Address [address] [place] [address] Phone Care Team Providers Care Fruit Harvest Machine Operator Name Role Phone Mitchel Woods MD Primary Care Provider [phone] Social History Tobacco Use Types Packs/Day Years [...] of Treatment Not on file Care Teams Fruit Harvest Machine Operator Relationship Specialty Start Date End Date Mitchel [place] [address] PCP - General Internal Medicine 10/15/21
--- OUTSIDE RECORDS SUMMARY | 2024-06-14 05:00 | XMS_ITS | Clinical Summary ---
Author Organization [facility] [employer] Address [address] [place] [address] Care Team Providers Care Stereotype Caster Name Role Phone Komal Flores MD Primary Care Provider [phone] Source Comments [facility] [employer],non-owned Affiliates and Associated Physician Practices is amultiple site organization consisting of ambulatory clinics and hospital sitesin [place], [place], [place] and [place]. This disclosure is being madepursuant to the Care Everywhere program and may not contain all information available regarding this patient. Last updated 17.[facility] [employer] Allergies Active Allergy Reactions Criticality Noted Date [...] Health Maintenance Due Date Last Done Comments HIV SCREENING 2017 HPV VACCINE (1 - [...] topic Insurance MEDICAID - [place] Care Teams Stereotype Caster Relationship Specialty Start Date End Date Komal Flores MD [address] [place] [address] PCP - General Pediatrics 06/04/13
--- OUTSIDE RECORDS SUMMARY | 2024-06-14 05:00 | XMS_ITS | Referral Summary ---
Author Organization [facility] Address [address] [place] [address] Care Team Providers Care Senior Training And Development Rep Name Role Phone Carlotta Degroot NP Primary Care Provider [phone] Encounters Date Type Department Care Team Description 05/13/2024 2:45 PM CDT Lab [facility] [address] [place] [address] 03/28/2024 12:45 PM COMPLIANCE COORDINATOR Office Visit [facility] [place] [address] [place] [address] Jodie Pérez NP COVID (Primary Dx) from Last 3 Months Allergies Active Allergy [...] SI She goes through Carlotta Degroot at [facility] advocates. SVT (supraventricular tachycardia) 10/16/2022 Assessment & Plan (12/02/2023 3:22 PM CDT): She has a h/o palpations. She has done holter monitor before The last was about 3 months ago Will see if she can see Dr. Leal during If not, [facility]. Manic behavior 10/17/2021 Assessment & Plan (12/23/2023 2:19 PM COMPLIANCE COORDINATOR): She is going to continue on with [...] to converse. Verified that she has appt w/[facility] ANA[facility] 11/20/21. Verified that she will go to [...] No longer seeing counselor but still sees psychology associate Adair Yun at [facility] in [place]. MOP unable to control Shauna at this time during appt. Not tearful but flat/blunt affect. Denies thoughts of SI/HI on direct questioning. Assessment & Plan (10/09/2018 10:12 AM CDT): No longer seeing counselor. Still seeing psychology associate: Adair Yun at [facility] in [place]. Difficulty taking medications per MOP confidentially on [...] 020 Assessment & Plan (12/25/2018 8:37 AM COMPLIANCE COORDINATOR): Rapid flu swab: NEGATIVE This looks viral [...] vulnerable. Assessment & Plan (12/25/2018 8:37 AM COMPLIANCE COORDINATOR): Discussed and the patient refuses immunization today. Educated regarding the need to vaccinate for personal protection and to limit the viruses in the community to protect those most vulnerable. Flu-like symptoms 12/24/2018 10/31/2019 Assessment & Plan (12/25/2018 8:37 AM COMPLIANCE COORDINATOR): NEGATIVE rapid flu swab in office. School [...] on file Legal Sex Female 11:47 AM COMPLIANCE COORDINATOR Gender Identity Female 11/15/2021 7:51 PM CDT Sexual Orientation Straight 11/15/2021 7: 51 PM CDT Last Filed Vital Signs Vital Sign Reading Time Taken Comments Blood Pressure 116/64 03/28/2024 12:44 PM COMPLIANCE COORDINATOR Pulse 79 03/28/2024 12:44 PM COMPLIANCE COORDINATOR Temperature 36.6 C (97.9 F) 03/28/2024 12:44 PM COMPLIANCE COORDINATOR Respiratory Rate 18 03/28/2024 12:4 4 PM COMPLIANCE COORDINATOR Oxygen Saturation 99% 03/28/2024 12: 44 PM COMPLIANCE COORDINATOR Inhaled Oxygen Concentration - - Weight 61.1 kg (134 lb 12.8 oz) 025 12:44 PM COMPLIANCE COORDINATOR Height 157.5 cm (5' 2 ) 03/28/2024 12:4 4 PM COMPLIANCE COORDINATOR Body Mass Index 24.66 03/28/2024 12:44 PM COMPLIANCE COORDINATOR Plan of Treatment Not on file Procedures [...] A/B, COVID-19 ANTIGEN Routine 03/28/2024 1:01 PM COMPLIANCE COORDINATOR COVID POCT RAPID STREP Routine 03/28/2024 1:01 PM COMPLIANCE COORDINATOR COVID HEPATITIS C ANTIBODY Routine 02/26/2024 2:51 PM COMPLIANCE COORDINATOR N. GONORRHOEAE/C. TRACHOMATIS AMPLIFICATION Routine 12/02/2023 4:42 PM CDT PAP, REFLEX HPV Routine 12/02/2023 4:42 PM CDT Encounter for supervision of normal first in first trimester from Last 3 Months or Most Recently Relevant to Health Maintenance Results * (ABNORMAL) Differential, auto (05/13/2024 2:42 PM CDT) Neutrophil abs 10.48(H) 1.50 - 6.50 K/cumm Comment:Testing performed by : [facility], [address] [place] [address]., [id number] Imm gran abs 0.23(H) 0.00 - 0.10 K/cumm [facility] (ADAN) Comment:Testing performed by : [facility], [address] [place] [address]., [id number] Lymphocyte abs 2.40 0.80 - 3.30 K/cumm [facility] (ADAN) Comment:Testing performed by : [facility], [address] [place] [address]., [id number] Monocyte abs 0.85(H) 0.20 - 0.80 K/cumm [facility] (ADAN) Comment:Testing performed by : [facility], [address] [place] [address]., [id number] Eosinophil abs 0.07 0.00 - 0.50 K/cumm [facility] (ADAN) Comment:Testing performed by : [facility], [address] [place] [address]., [address] Basophil abs 0.07 0.00 - 0.10 K/cumm [facility] (ADAN) Comment:Testing performed by : [facility], [address] [place] [address]., [id number] Neutrophil pct 74.4 % [facility] (ADAN) Comment: Interpretive Data Percent cell count reference ranges are not reported, since discordance with absolute values may lead to misinterpretation of CBC data. Current Interpretive Data was last revised on 2017. Testing performed by: [address] [address] Imm gran pct 1.6 % [facility] (ADAN) Comment: Interpretive Data Percent cell count reference ranges are not reported, since discordance with absolute values may lead to misinterpretation of CBC data. Current Interpretive Data was last revised on 2017. Testing performed by: [address] [address] Lymphocyte pct 17.0 % [facility] (ADAN) Comment: Interpretive Data Percent cell count reference ranges are not reported, since discordance with absolute values may lead to misinterpretation of CBC data. Current Interpretive Data was last revised on 2017. Testing performed by: [address] [address] Monocyte pct 6.0 % [facility] (ADAN) Comment: Interpretive Data Percent cell count reference ranges are not reported, since discordance with absolute values may lead to misinterpretation of CBC data. Current Interpretive Data was last revised on 2017. Testing performed by: [address] [address] Eosinophil pct 0.5 % [facility] (ADAN) Comment: Interpretive Data Percent cell count reference ranges are not reported, since discordance with absolute values may lead to misinterpretation of CBC data. Current Interpretive Data was last revised on 2017. Testing performed by: [facility], [address] [place] [address]., [address] Basophil pct 0.5 % [facility] (ADAN) Comment: Interpretive Data Percent cell count reference ranges are not reported, since discordance with absolute values may lead to misinterpretation of CBC data. Current Interpretive Data was last revised on 2017. Testing performed by: [facility], [address] [place] [address]., [id number] Blood 05/13/2024 2:42 PM CDT 05/13/2024 8:10 PM CDT Dorita Valdes MD LAB BLOOD ORDERABLES Fin al Result Performing Organization Address [facility]/ZIP Co de Phone Number [facility] (ADAN) 1 [facility] [employer] [place] [address] * HIV 1/2 Antibody plus p24 Antigen Blood (05/13/2024 2:42 PM CDT) HIV 1/2 ab + p24 ag Nonreactive Nonreactive Comment: Nonreactive for HIV-1 antigen and HIV-1/HIV-2 antibodies. No laboratory evidence of HIV infection. If acute HIV infection is suspected, consider testing for HIV-1 RNA. Testing performed by: [facility], [address] [place] [address]., [id number] Blood 05/13/2024 2:42 PM CDT 05/13/2024 7:45 PM CDT us Dorita Valdes MD LAB MICROBIOLOGY - GENER AL ORDERABLES Final Result Performing Organization Address City/[facility]/ZIP Co de Phone Number OVI LUNDBER[facility] (GARRISON) 1 [facility] [place] [address] * (ABNORMAL) CBC with auto differential (05/13/2024 2:42 PM CDT) WBC 14.10(H) 3.80 - 9.90 K/cumm Comment:Testing performed by : [address], [address] Hgb 13.3 11.9 - 15.5 g/dL [facility] (ADAN) Comment:Testing performed by : [address], [address] Hct 40.2 35.6 - 45.5 % [facility] (ADAN) Comment:Testing performed by : [address], [address] Plt 303 150 - 400 K/cumm [facility] (ADAN) Comment:Testing performed by : [address], [address] MPV 10.5 9.1 - 12.3 fL [facility] (ADAN) Comment:Testing performed by : [address], [address] RBC 3.98 3.90 - 5.20 M/cumm [facility] (ADAN) Comment:Testing performed by : [address], [address] MCV 101.0(H) 81.3 - 96.4 fL [facility] (ADAN) Comment:Testing performed by : [address], [address] MCH 33.4(H) 27.1 - 33.3 pg [facility] (ADAN) Comment:Testing performed by : [address], [address] MCHC 33.1 32.3 - 35.7 g/dL [facility] (ADAN) Comment:Testing performed by : [address], [address] RDW CV 13.2 11.1 - 14.9 % [facility] (ADAN) Comment:Testing performed by : [address], [address] RDW SD 49.6(H) 35.7 - 48.1 fL [facility] (AD[facility]) Comment:Testing performed by : [address], [address] NRBC abs 0.00 0.00 - 0.01 K/cumm [facility] (ADAN) Comment:Testing performed by : [address] [address] Blood 05/13/2024 2:42 PM CDT 05/13/2024 8:10 PM CDT us Dorita Valdes MD LAB BLOOD ORDERABLES Fin al Result [facility] ([place]) [address] [place] [address] * Vitamin D 25 hydroxy (05/13/2024 2:42 PM CDT) Pathologist [facility] Vitamin D 25-OH 61 30 - 80 ng/mL Comment:Testing performed by : [address] [address] Blood 05/13/2024 2:42 PM CDT 05/13/2024 8:10 PM CDT us Dorita Valdes MD LAB BLOOD ORDERABLES Fin al Result Performing Organization Address [facility] Co de Phone Number [facility] ([place]) [address] [place] [address] * RPR Blood (05/13/2024 2:42 PM CDT) [facility] RPR Nonreactive Nonreactive Comment:Testing performed by : [address] [place] [address] Blood 05/13/2024 2:42 PM CDT 05/13/2024 8:10 PM CDT us Dorita Valdes MD LAB MICROBIOLOGY - GENER AL ORDERABLES Final Result Performing Organization Address City/[facility]/ZIP Co de Phone Number [facility] ([place]) [address] [place] [address] * (ABNORMAL) POC Influenza A/B, COVID-19 antigen (03/28/2024 1:01 PM COMPLIANCE COORDINATOR) Pathologist [facility] Influenza A Ag, POC Negative Negative [facility] Influenza B Ag, POC Negative Negative [facility] COVID-19 Ag POC Positive(A) Presumptive Negative, Invalid [facility] Nasal 03/28/2024 1:01 PM COMPLIANCE COORDINATOR Jodie Pérez THERMOSTATIC CONTROLS SUPERVISOR POINT OF CARE TEST ORDERABLES Final Result Performing Organization Address [facility] de Phone Number [facility] [address] * POCT rapid strep A (03/28/2024 1:01 PM COMPLIANCE COORDINATOR) Pathologist [facility] Rapid Strep A, POC Negative Negative [facility] Swab 03/28/2024 1:01 PM COMPLIANCE COORDINATOR Jodie Pérez THERMOSTATIC CONTROLS SUPERVISOR POINT OF CARE TEST ORDERABLES Final Result Performing Organization Address [facility] Phone Number [facility] [address] * Hepatitis C antibody Blood (02/26/2024 2:51 PM COMPLIANCE COORDINATOR) Pathologist [facility] Hep C Ab Nonreactive Nonreactive Comment: Interpretive [...] last revised on 2019. Testing performed by: [facility], [address] [place] [address], [place]., [address] Blood 02/26/2024 2:51 PM COMPLIANCE COORDINATOR 02/26/2024 2:54 PM COMPLIANCE COORDINATOR Dorita Valdes MD LAB MICROBIOLOGY - GENER AL ORDERABLES Final Result Performing Organization Address [facility]/ZIP Co de Phone Number OVI RAYA) 1 [facility] [place] [address] * (ABNORMAL) Pap, reflex HPV (12/02/2023 4:42 [...] clinical correlation and follow-up as clinically appropriate Supervisor Of Research Que st Jewel Agosto Comment: PCM, CT(ASCP) CT Screening Location: [place] [address] [address] [place] [address] Pathologist [place] Comment: John Ulloa M.D., [...] 4:42 PM CDT 12/03/2023 4:33 AM CDT us Vaishali Drake MD LAB CYTOLOGY ORDERA BLES Final Result [address] [employer] HRCarolyne Agosto [address] [address] [place] [address] * N. gonorrhoeae/C. trachomatis Amplification (12/02/2023 4:42 PM CDT) C. trachomatis RNA NOT DETECTED NOT DETECTED [facility] N. gonorrhoeae RNA NOT DETECTED NOT DETECTED [facility] Comment [facility] Comment: The analytical performance characteristics of this assay, when used to test SurePath(TM) specimens have been determined by [employer]. The modifications have not been cleared or approved by the FDA. This assay has been validated pursuant to the CLIA regulations and is used for clinical purposes. For additional information, please refer to https://education.[employer] (TTN)/faq/CHJ683 (This link is being provided for information/ educational purposes only.) 12/02/2023 4:42 PM CDT 12/03/2023 4:33 AM CDT Vaishali Drake MD LAB MICROBIOLOGY - GENERAL ORDERABLES Final Result [facility] [address] [place] [address] from Last 3 Months or Most Recently Relevant to Health Maintenance Additional Health Concerns Infection Onset Date Last Indicated COVID: Recovered Comment:Added based on recent COVID infection. 04/07/2024 025 Insurance Team-Match ACCESS CHOICE BLUE [employer] [place] [employer] ANTHE[place] ACCESS CHOICE [place] [address] [address] OPEN ACCESS FORMERLY [facility] Care Teams Senior Training And Development Rep Relationship Specialty [place] [address] [place] [id number] PCP - General Internal Medicine 11/21/23
--- OUTSIDE RECORDS SUMMARY | 2024-06-14 05:00 | XMS_ITS | Patient Health Record ---
Author Organization [facility] Address [address] [place] [address] Care Team Providers Care Telemetry Monitor Name Role Phone Jony Jenkins Primary Care Provider [phone] Allergies Allergen (clinical drug ingredient) Drug/Non Drug Allergy documented on EMR Reaction Allergy Type Onset Date Status dexmethylphenidate Focalin Unknown Drug Allergy Active Bee Sting Unknown Allergy Active Reason For Referral No Information Medications Medication SIG (Take, Route, Frequency, Duration) Notes Start Date End Date Status busPIRone HCl 30 MG 1 tablet Orally at night 10/02/2020 Not-Taking guanFACINE HCl 2 MG 1 tablet at bedtime Orally Once a day 10/02/2020 Not-Taking Ondansetron HCl 4 MG 1 tablet to take wi th olanzapine at bedtime. Orally Once a day for 30 day(s) 08/29/2021 Not-Taking lamoTRIgine 25 MG 1 tablet (25mg) once daily for 14 days, THEN INCREASE to 2 tablets (50mg) once daily Orally for 30 days 05/27/2024 Active QUEtiapine Fumarate 50 MG 1.5-2 tablets once nightly at bedtime as needed for sleep Orally for 30 days 05/27/2024 Active OLANZapine 7.5 MG 1 tablet at bedtime. Orally Once a day for 30 day(s) 08/29/2021 Not-Taking SEROquel 50 MG 1 tablet at bedtime Orally Once a day Active Promethazine HCl 12.5 MG 1 tablet as nee ded Orally every 6 hrs Active Ferrous Sulfate 325 (65 Fe) MG 1 tablet Orally Three times a Week Active Social History Tobacco Use: Social History Observation Description Date Details (start date - stop date) Current Smoker NA - NA Sex Assigned At : Social History Observation Description Sex Assigned At Female Tobacco Control (Standard) Question Answer Notes Tobacco use: Current every day smoker Additional Findings: Tobacco user e-cigarette Section Notes: Never . Has 2 step-br others and one half brother. Education: [place] [employer]. Has been suspended multiple times starting in 7 th grade. Struggles with grades due to missing school. Has IEP. Has a safe plan at school when having anxiety attacks. : no Legal: mother reports energy conservation director had been called because she is trying to fight other kids Substance Use: used Marijuana in 7 th grade, last use was yesterday. Smokes day. Trauma: Physical: no Emotional: in relationships. Had been bullied in past Sexual: no Hobbies: likes to Kick Box, state she likes to smoke Never . Has 2 step-br others and one half brother. Education: [place] [employer]. Has been suspended multiple times starting in 7 th grade. Struggles with grades due to missing school. Has IEP. Has a safe plan at school when having anxiety attacks. : no Legal: mother reports energy conservation director had been called because she is trying to fight other kids Substance Use: used Marijuana in 7 th grade, last use was yesterday. Smokes day. Trauma: Physical: no Emotional: in relationships. Had been bullied in past Sexual: no Hobbies: likes to Kick Box, state she likes to smoke Never . Has 2 step-br others and one half brother. Education: [place] [employer]. Has been suspended multiple times starting in 7 th grade. Struggles with grades due to missing school. Has IEP. Has a safe plan at school when having anxiety attacks. : no Legal: mother reports energy conservation director had been called because she is trying to fight other kids Substance Use: used Marijuana in 7 th grade, last use was yesterday. Smokes day. Trauma: Physical: no Emotional: in relationships. Had been bullied in past Sexual: no Hobbies: likes to Kick Box, state she likes to smoke Never . Has 2 step-br others and one half brother. Education: [place] [employer]. Has been suspended multiple times starting in 7 th grade. Struggles with grades due to missing school. Has IEP. Has a safe plan at school when having anxiety attacks. : no Legal: mother reports energy conservation director had been called because she is trying [...] Problem Status W/U Status Risk Notes Problem [id number] Bipolar disorder , current episode depressed, moderate (F31.32) Active confirmed Problem Borderline personality disorder (37216817) Borderline personality disorder (F60.3) Active confirmed Problem Depression (414074986) Depression (F32.9) Active confirmed Problem Anxiety (48468540) Anxiety (F41.9) Active confirmed Problem Bipolar 1 disorder (584588465) Bipolar 1 disorder (F31.9) Active confirmed Problem Thyroid disorder screening (380540895) Screening for thyroid disorder (Z13.29) Active confirmed Problem Diabetes mellitus screening (140311251) Screening for diabetes mellitus (Z13.1) Active confirmed Problem Difficulty sleeping (013085759) Difficulty sleeping (G47.9) Active confirmed Problem Bipolar affective disorder, currently manic, moderate (161195314) Bipolar 1 disorder with moderate maryam (F31.12) Active confirmed Problem Nicotine dependence (57237769) Nicotine dependence (F17.200) Active confirmed Problem Hyperlipidemia screening (818964926) Screening for hyperlipidemia (Z13.220) Active confirmed Vital Signs Height 5ft 2in in 05/27/2024 Weight 140 lbs 05/27/2024 BMI 25.6 kg/m2 05/27/2024 Encounters Encounter Location Date Provider Diagnosis [address] [place] [address] 05/27/2024 Jonyliyah Jenkins Borderline personali ty disorder F60.3 ; Anxiety F41.9 ; Depression F32.9 ; Difficulty sleeping G47.9 ; Nicotine dependence F17.200 ; Screening for thyroid disorder Z13.29 ; Screening for hyperlipidemia Z13.220 and Screening for diabetes mellitus Z13.1 [facility] [address] [place] [address] 05/27/2024 Jony Jenkins Assessments Encounter Date Diagnosis (ICD Code) Assessment Notes Treatment Notes Treatment Clinical Notes Section Notes 05/27/2024 Borderline personality disorder (ICD-10 - F60.3) Duration (acute/chronic), stability (controlled/uncon trolled): Chronic, uncontrolled Current medications/effic acy: Somewhat, room for improvement Previous medication trials: aripiprazole, Risperidone (made mood worse and urinary incontinence), Latuda (emesis), Trazodone (ineffective), Celexa, Lexapro (suicidal on SSRIs), Focalin (allergy), Strattera(ineffec tive), Adderall, Cymbalta, Hydroxyzine (ineffective), Buspar (anxiety), Gunfacine Current/previous therapies: Denies current therapy, I probably should. - previously followed up with therapy, usually quits about 3-4 sessions in due to feeling overwhelmed (leaving for the appointment is overwhelming) Examination as documented - see pertinent aspects of office visit documentation. Pertinent diagnostics: AGREEABLE TO LAB COLLECTION, REQUESTING ORDERS TO BE FAXED TO [facility] IN [place], SEE TELEPHONE COMMUNICATION Differential diagnoses: possible co-occurring mood disorder due to previous intermittent periods of decreased sleep times about 3 days, see HPI Provider and patient discussed the need for therapy to assist with this. Provider explained that DBT is known to be beneficial for person's with borderline personality disorder traits. Patient verbalized understanding and agreement. RECOMMENDATIONS: START lamotrigine as prescribed to assist with mood/stability - educated patient/guardian on adverse effects, risks and benefits, as well as alternative treatments INCREASE quetiapine as prescribed to assist with sleep - educated patient/guardian on adverse effects, risks and benefits, as well as alternative treatments Continue/modify other medications as prescribed - educated patient/guardian on adverse effects, risks and benefits, as well as alternative treatments Consume well balanced diet, preferably low in saturated fats (solid at room temperature, such as butter, margarine, Crisco, etc) and low in sodium (<2,000mg per day). Consume plenty of fruits/vegetables , healthy grains/whole grains, unsaturated/healt hy fats (liquid at room temperature, such as olive oil, sunflower seed oil, canola, vegetable, etc.). Exercise regularly - Develop an exercise routine. 30 minutes of moderate exercise (walking at a brisk pace) 5 times per week is recommended. You should work hard enough to cause a sweat but still be able to talk with others while exercising. Exercise improves overall health - improves blood pressure and blood sugar, helps control weight, reduces stress, and improves mood. Practice stress reduction techniques, such as guided imagery, journaling, aromatherapy, acupuncture/acupr essure, deep breathing, etc. Practice healthy sleep hygiene - maintain regular routine, no caffeine after 1PM, no exercise 1-2 hours prior to bedtime, keep bedroom dark and cool, no TV or electronics while in bed. Consider melatonin as needed. Consider cognitive behavioral therapy for insomnia (CBT-I). Consider/Continue therapy. Consider/Continue substance cessation therapy as needed - contact office if desiring medication assisted therapy. Manage co-morbid conditions. Continue monitoring symptoms - report persistent or worsening/concern ing symptoms to the office or go to the ER. For mental health CRISIS, please reach out to [phone] ([place] Suicide and Crisis Lifeline), 911, go to the emergency department, or contact the [facility] Crisis Unit/Team. Follow up as scheduled in 4 weeks or sooner if necessary. Follow up with PCP and/or other specialists as advised. NEXT STEP: Review lab results. Consider increasing lamotrigine. Consider increasing quetiapine. Consider other medication adjustments as needed. 05/27/2024 Anxiety (ICD-10 - F41.9) See assessment and plan for BPD 05/27/2024 Depression (ICD-10 - F32.9) See assessment and plan for BPD 05/27/2024 Difficulty sleeping (ICD-10 - G47.9) See assessment and plan for BPD 05/27/2024 Nicotine dependence (ICD-10 - F17.200) Duration (acute/chronic), stability (controlled/uncon trolled): Vapes, daily, has been vaping since about 9th grade - prior to vaping, would smoking cigarettes sporadically, once every few weeks (cigarette butts out of the [employer] tray) - patient verbalized no intention to quit at this time Current medications/effic acy: N/A Previous medication trials: N/A RECOMMENDATIONS: Consider substance cessation therapy as needed - contact office if desiring medication assisted therapy. Manage co-morbid conditions. Continue monitoring symptoms - report persistent or worsening/concern ing symptoms to the office or go to the ER. For mental health CRISIS, please reach out to [phone] ([employer] Suicide and Crisis Lifeline), 911, go to the emergency department, or contact the [facility] Crisis Unit/Team. Follow up as scheduled or sooner if necessary. Follow up with PCP and/or other specialists as advised. NEXT STEP: Consider MAT as needed. 05/27/2024 Screening for thyroid disorder (ICD-10 - Z13.29) See above assessment and plans 05/27/2024 Screening for hyperlipidemia (ICD-10 - Z13.220) See above assessment and plans 05/27/2024 Screening for diabetes mellitus (ICD-10 - Z13.1) See above assessment and plans Plan Of Treatment Future Test Test Name Order Date Hemoglobin A1c* 05/27/2024 Vitamin B12* 05/27/2024 Folate (Folic Acid), Serum* 05/27/2024 CBC With Differential/Platelet* 05/28/19 25 Vitamin D, 25-Hydroxy* 05/27/2024 TSH+Free T4* 05/27/2024 Lipid Panel* 05/27/2024 CMP 14 Comprehensive Metabolic Panel* Medical (General) History Medical History History ICD Code T & A at age 7 R eye hemorrhage 01/2020 Surgical History Surgery Date(Month/Year) Tonsillectomy and adenoidectomy 2008 Hospitalization History Reason Date(Month/Year) OD took #80 celexa pills 2017? MH at [facility] 03/2018
--- OUTSIDE RECORDS SUMMARY | 2024-06-14 05:00 | XMS_ITS | Clinical Summary ---
Author Organization [facility] Address [address] [place] [address] Care Team Providers Care Drying Unit Felting Machine Operator Name Role Phone Carlotta Degroot NP Primary Care Provider [phone] Allergies Active Allergy Reactions Criticality Noted Date [...] SI She goes through Carlotta Degroot at [facility]. SVT (supraventricular tachycardia) 10/16/2022 Assessment & Plan (12/02/2023 3:22 PM CDT): She has a h/o palpations. She has done holter monitor before The last was about 3 months ago Will see if she can see Dr. Leal during If not, will refer to [facility]. Manic behavior 10/17/2021 Assessment & Plan (12/23/2023 2:19 PM PRODUCT SAFETY SPECIALIST): She is going to continue on with [...] converse. Verified that she has appt w/[employer] 11/20/21. Verified that she will go to [...] No longer seeing counselor but still sees neuropsychologist Adair Yun at [facility] in [place]. MOP unable to control Shauna at this time during appt. Not tearful but flat/blunt affect. Denies thoughts of SI/HI on direct questioning. Assessment & Plan (10/09/2018 10:12 AM CDT): No longer seeing counselor. Still seeing neuropsychologist: Adair Yun at [facility] in [place]. Difficulty taking medications per MOP confidentially on [...] 020 Assessment & Plan (12/25/2018 8:37 AM PRODUCT SAFETY SPECIALIST): Rapid flu swab: NEGATIVE This looks viral [...] vulnerable. Assessment & Plan (12/25/2018 8:37 AM PRODUCT SAFETY SPECIALIST): Discussed and the patient refuses immunization today. Educated regarding the need to vaccinate for personal protection and to limit the viruses in the community to protect those most vulnerable. Flu-like symptoms 12/24/2018 10/31/2019 Assessment & Plan (12/25/2018 8:37 AM PRODUCT SAFETY SPECIALIST): NEGATIVE rapid flu swab in office. 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 12/02/23 Relation Name Status Comments [...] on file Legal Sex Female 11:47 AM PRODUCT SAFETY SPECIALIST Gender Identity Female 11/15/2021 7:51 PM CDT Sexual Orientation Straight 11/15/2021 7: 51 PM CDT Obstetrics History Para Term AB IAB SAB Ectopic Multiple Livin g Live Births 1 0 0 0 0 0 0 0 0 0 0 Date Outcome GA Total Labor Labor/2nd/3rd Weight Sex Type Anes PTL Natalia A1 A5 Name Clin Last Filed Vital Signs Vital Sign Reading Time Taken Comments Blood Pressure 116/64 03/28/2024 12:44 PM PRODUCT SAFETY SPECIALIST Pulse 79 03/28/2024 12:44 PM PRODUCT SAFETY SPECIALIST Temperature 36.6 C (97.9 F) 03/28/2024 12:44 PM PRODUCT SAFETY SPECIALIST Respiratory Rate 18 03/28/2024 12:4 4 PM PRODUCT SAFETY SPECIALIST Oxygen Saturation 99% 03/28/2024 12: 44 PM PRODUCT SAFETY SPECIALIST Inhaled Oxygen Concentration - - Weight 61.1 kg (134 lb 12.8 oz) 025 12:44 PM PRODUCT SAFETY SPECIALIST Height 157.5 cm (5' 2 ) 03/28/2024 12:4 4 PM PRODUCT SAFETY SPECIALIST Body Mass Index 24.66 03/28/2024 12:44 PM PRODUCT SAFETY SPECIALIST Plan of Treatment Health Maintenance Due Date [...] A/B, COVID-19 ANTIGEN Routine 03/28/2024 1:01 PM PRODUCT SAFETY SPECIALIST COVID POCT RAPID STREP Routine 03/28/2024 1:01 PM PRODUCT SAFETY SPECIALIST COVID HEPATITIS C ANTIBODY Routine 02/26/2024 2:51 PM PRODUCT SAFETY SPECIALIST N. GONORRHOEAE/C. TRACHOMATIS AMPLIFICATION Routine 12/02/2023 4:42 PM CDT PAP, REFLEX HPV Routine 12/02/2023 4:42 PM CDT Encounter for supervision of normal first in first trimester from Last 3 Months or Most Recently Relevant to Health Maintenance Results * (ABNORMAL) Differential, auto (05/13/2024 2:42 PM CDT) Neutrophil abs 10.48(H) 1.50 - 6.50 K/cumm Comment:Testing performed by : [facility], [address] [place] [address], [place]., [address] Imm gran abs 0.23(H) 0.00 - 0.10 K/cumm [facility] (ADAN) Comment:Testing performed by : [facility], [address] [place] [address]., [address] Lymphocyte abs 2.40 0.80 - 3.30 K/cumm [facility] (ADAN) Comment:Testing performed by : [facility], [address] [place] [address]., [address] Monocyte abs 0.85(H) 0.20 - 0.80 K/cumm [facility] (ADAN) Comment:Testing performed by : [facility], [address] [place] [address]., [address] Eosinophil abs 0.07 0.00 - 0.50 K/cumm [facility] (ADAN) Comment:Testing performed by : [facility], [address] [place] [address]., [address] Basophil abs 0.07 0.00 - 0.10 K/cumm [facility] (ADAN) Comment:Testing performed by : [facility], [address] [place] [address], [address] Neutrophil pct 74.4 % [facility] (ADAN) Comment: Interpretive Data Percent cell count reference ranges are not reported, since discordance with absolute values may lead to misinterpretation of CBC data. Current Interpretive Data was last revised on 2017. Testing performed by: [address] [address] Imm gran pct 1.6 % [facility] (AD[facility]) Comment: Interpretive Data Percent cell count reference ranges are not reported, since discordance with absolute values may lead to misinterpretation of CBC data. Current Interpretive Data was last revised on 2017. Testing performed by: [address] [address] Lymphocyte pct 17.0 % [facility] (AD[facility]) Comment: Interpretive Data Percent cell count reference ranges are not reported, since discordance with absolute values may lead to misinterpretation of CBC data. Current Interpretive Data was last revised on 2017. Testing performed by: [address], [address] Monocyte pct 6.0 % [facility] (AD[facility]) Comment: Interpretive Data Percent cell count reference ranges are not reported, since discordance with absolute values may lead to misinterpretation of CBC data. Current Interpretive Data was last revised on 2017. Testing performed by: [facility], [address] [place] [address]., [address] Eosinophil pct 0.5 % [facility] ([facility]) Comment: Interpretive Data Percent cell count reference ranges are not reported, since discordance with absolute values may lead to misinterpretation of CBC data. Current Interpretive Data was last revised on 2017. Testing performed by: [facility], [address] [place] [address]., [address] Basophil pct 0.5 % [facility] (ADAN) Comment: Interpretive Data Percent cell count reference ranges are not reported, since discordance with absolute values may lead to misinterpretation of CBC data. Current Interpretive Data was last revised on 2017. Testing performed by: [facility], [address] [place] [address]., [address] Blood 05/13/2024 2:42 PM CDT 05/13/2024 8:10 PM CDT Dorita Valdes MD LAB BLOOD ORDERABLES Fin al Result [facility] ([place]) 1 [facility] [place] [address] * HIV 1/2 Antibody plus p24 Antigen Blood (05/13/2024 2:42 PM CDT) HIV 1/2 ab + p24 ag Nonreactive Nonreactive Comment: Nonreactive for HIV-1 antigen and HIV-1/HIV-2 antibodies. No laboratory evidence of HIV infection. If acute HIV infection is suspected, consider testing for HIV-1 RNA. Testing performed by: [address] [address] Blood 05/13/2024 2:42 PM CDT 05/13/2024 7:45 PM CDT Dorita Valdes MD LAB MICROBIOLOGY - GENER AL ORDERABLES Final Result [facility] ([place]) 1 [facility] [place] [employer] [address] * (ABNORMAL) CBC with auto differential (05/13/2024 2:42 PM CDT) [facility] WBC 14.10(H) 3.80 - 9.90 K/cumm Comment:Testing performed by : [address], [address] Hgb 13.3 11.9 - 15.5 g/dL [facility] ([facility]) Comment:Testing performed by : [address], [address] Hct 40.2 35.6 - 45.5 % [facility] ([facility]) Comment:Testing performed by : [address], [address] Plt 303 150 - 400 K/cumm [facility] ([facility]) Comment:Testing performed by : [address], [address] MPV 10.5 9.1 - 12.3 fL [facility] ([facility]) Comment:Testing performed by : [address], [address] RBC 3.98 3.90 - 5.20 M/cumm [facility] ([facility]) Comment:Testing performed by : [address], [address] MCV 101.0(H) 81.3 - 96.4 fL [facility] ([facility]) Comment:Testing performed by : [address], [address] MCH 33.4(H) 27.1 - 33.3 pg [facility] ([facility]) Comment:Testing performed by : [address], [address] MCHC 33.1 32.3 - 35.7 g/dL [facility] ([facility]) Comment:Testing performed by : [address], [address] RDW CV 13.2 11.1 - 14.9 % [facility] ([facility]) Comment:Testing performed by : [address], [address] RDW SD 49.6(H) 35.7 - 48.1 fL [facility] ([facility]) Comment:Testing performed by : [facility], [address] [place] [address]., [address] NRBC abs 0.00 0.00 - 0.01 K/cumm [facility] ([place]) Comment:Testing performed by : [facility], [address] [place] [address]., [address] Blood 05/13/2024 2:42 PM CDT 05/13/2024 8:10 PM CDT us Dorita Valdes MD LAB BLOOD ORDERABLES Fin al Result [facility] ([place]) 1 [facility] [place] [address] * Vitamin D 25 hydroxy (05/13/2024 2:42 PM CDT) Vitamin D 25-OH 61 30 - 80 ng/mL Comment:Testing performed by : [facility], [address] [place] [address], [address] Blood 05/13/2024 2:42 PM CDT 05/13/2024 8:10 PM CDT us Dorita Valdes MD LAB BLOOD ORDERABLES Fin al Result Performing Organization Address [facility]/ZIP Co de Phone Number [facility] ([place]) 1 [facility] [place] [address] * RPR Blood (05/13/2024 2:42 PM CDT) RPR Nonreactive Nonreactive Comment:Testing performed by : [facility], [address] [place] [address], [place]., [address] Blood 05/13/2024 2:42 PM CDT 05/13/2024 8:10 PM CDT Dorita Valdes MD LAB MICROBIOLOGY - GENER AL ORDERABLES Final Result [facility] ([place]) 1 [facility] Department [place] [address] * (ABNORMAL) POC Influenza A/B, COVID-19 antigen (03/28/2024 1:01 PM PRODUCT SAFETY SPECIALIST) Pathologist [facility] [place] Influenza A Ag, POC Negative Negative [facility] Influenza B Ag, POC Negative Negative [facility] COVID-19 Ag POC Positive(A) Presumptive Negative, Invalid [facility] Nasal 03/28/2024 1:01 PM PRODUCT SAFETY SPECIALIST Jodie Pérez RACING DRIVER POINT OF CARE TEST ORDERABLES Final Result Performing Organization Address [facility] Co de Phone Number [facility] [address] [place] [address] [place] [address] * POCT rapid strep A (03/28/2024 1:01 PM PRODUCT SAFETY SPECIALIST) [facility] Rapid Strep A, POC Negative Negative [facility] Swab 03/28/2024 1:01 PM PRODUCT SAFETY SPECIALIST Jodie Pérez RACING DRIVER POINT OF CARE TEST ORDERABLES Final Result Performing Organization Address City/[facility] de Phone Number [facility] [address] [place] [address], [place] * Hepatitis C antibody Blood (02/26/2024 2:51 PM PRODUCT SAFETY SPECIALIST) [facility] Hep C Ab Nonreactive Nonreactive Comment: Interpretive [...] last revised on 2019. Testing performed by: [facility], [address] [place] [address], [place]., [address] Blood 02/26/2024 2:51 PM PRODUCT SAFETY SPECIALIST 02/26/2024 2:54 PM PRODUCT SAFETY SPECIALIST us Dorita Valdes MD LAB MICROBIOLOGY - GENER AL ORDERABLES Final Result [facility] ([place]) 1 [facility] Department [place] [address] * (ABNORMAL) Pap, reflex HPV (12/02/2023 4:42 [...] clinical correlation and follow-up as clinically appropriate Hair Assistant Que st Jewel Agosto Comment: PCM, CT(ASCP) CT Screening Location: [place] [address] [place] [address] Pathologist Stephane Agosto Comment: John Ulloa M.D., [...] MD LAB CYTOLOGY ORDERA BLES Final Result [facility] [address] [place] [address] * N. gonorrhoeae/C. trachomatis Amplification (12/02/2023 4:42 PM CDT) C. trachomatis RNA NOT DETECTED NOT DETECTED [facility] N. gonorrhoeae RNA NOT DETECTED NOT DETECTED [facility] Comment [facility] Comment: The analytical performance characteristics of this assay, when used to test SurePath(TM) specimens have been determined by [facility]. The modifications have not been cleared or approved by the FDA. This assay has been validated pursuant to the CLIA regulations and is used for clinical purposes. For additional information, please refer to https://education.Texifter/faq/ULD316 (This link is being provided for information/ educational purposes only.) 12/02/2023 4:42 PM CDT 12/03/2023 4:33 AM CDT Vaishali Drake MD LAB MICROBIOLOGY - GENERAL ORDERABLES Final Result Performing Organization Address City/[facility] Co de Phone Number [facility] [address] [place] [address] from Last 3 Months or Most Recently Relevant to Health Maintenance Additional Health Concerns Infection Onset Date Last Indicated COVID: Recovered Comment:Added based on recent COVID infection. 04/07/2024 025 Insurance ANTH ACCESS CHOICE BLUE [employer] O[place] ANTHEM ACCESS CHOICE IDPA OPEN ACCESS CIG HEALTHCARE Care Teams Drying Unit Felting Machine Operator Relationship Specialty Start Date End Date Carlotta Degroot, RACING DRIVER [address] [place] [address] PCP - General Internal Medicine 11/21/23
--- NOTE | 2024-06-14 05:40 | LDADM ---
This patient, Shauna [place], was admitted to Labor/Delivery/Recovery 104 on 06/14/24 at 04:52. Plans for labor, pain management and were discussed with patient. Patient/family oriented to hospital policies and general routines including ID bracelet, bed and alarms, visiting hours, pain management, procedures, bathroom and other care routines, personal items, smoking policy, room service/diet and guest tray routines, infant security routines, and visiting hours. Patient/Family are encouraged to report perceived risks to care and to ask questions if they do not understand what they are told or what they should do. See OBIX for further documentation.
[2024-06-14 05:51] LABS: Basophils Absolute Auto 0.1 K/mm3 (0.0-0.1); Basophils Percent Auto 0.6 % (0.2-1.2); Eosinophils Absolute Auto 0.1 K/mm3 (0-0.3); Eosinophils Percent Auto 1.2 % (0-4.4); Hematocrit 38.3 % (37.0-47.0); Hemoglobin 12.8 g/dL (12.0-15.0); Immature Granulocyte Absolute 0.09 K/mm3 (0.00-0.031); Immature Granulocyte Percent A 0.9 % (0-0.5); Immature Platelet Fraction Pct 5.3 % (0.9-11.2); Lymphocytes Absolute Auto 2.47 K/mm3 (0.9-3.2); Mean Corpuscular HGB Conc 33.4 g/dl (32-36); Mean Corpuscular Hemoglobin 32.2 pg (26-34); Mean Corpuscular Volume 96.2 fl (80-100); Monocytes Absolute Auto 0.7 K/mm3 (0.1-0.6); Monocytes Percent Auto 6.9 % (2.6-8.5); Neutrophils Absolute Auto 6.8 K/mm3 (1.3-6.7); Neutrophils Percent Auto 66.4 % (45.5-73.1); Platelet Count Result 248 k/mm3 (150-375); Red Blood Count 3.98 M/mm3 (4.2-5.4); Red Cell Distribution Width 12.4 % (11.5-14.5); White Blood Count 10.3 K/mm3 (4.5-10.0)
[2024-06-14] MEDS: LACTATED RINGERS 1,000 ML 125 ML IV CONT ×4 (05:57→18:49)
[2024-06-14] MEDS: OXYTOCIN 30 UNITS/NS 500 ML 30 UNITS/500 ML BAG 6 UNITS IV CONT (05:58)
[2024-06-14 06:29] LABS: Syphilis IgG/IgM Antibody Negative (Negative)
[2024-06-14 06:42] LABS: HIV 1/2 Ab P24 Ag Result Negative (Negative)
[2024-06-14 07:06] LABS: Rubella IgG Antibody 51.5 IU/ML
[2024-06-14 07:26] LABS: Alanine Aminotransferase 35 U/L (6-35); Albumin Level 3.5 g/dL (3.5-5.1); Alkaline Phosphatase 171 U/L (38-126); Anion Gap 9 mmol/L (4-12); Aspartate Amino Transferase 30 U/L (14-36); Bilirubin,Total 1.1 mg/dL (0.2-1.3); Blood Urea Nitrogen 5 mg/dL (7-17); Calcium 8.9 mg/dL (8.4-10.2); Carbon Dioxide 20 mmol/L (22-30); Chloride 106 mmol/L (98-107); Estimated CRCL calculation 120 ml/min; Estimated Glomerular Filt Rate > 60; Glucose 121 mg/dL (65-110); Potassium 3.3 mmol/L (3.4-5.0); Sodium 135 mmol/L (137-145); Uric Acid 3.2 mg/dL (2.5-7.5)
--- NOTE | 2024-06-14 08:48 | WPDOBADMIT ---
Obstetrics - Admit Note Admission Note: record reviewed. No pertinent additions to the history and/or any subsequent changes in the physical findings that are not consistent with the expected course of the were found. Additions to the history and/or subsequent changes in the physical findings follow. Here for MIL. Cervix 50/-2. AROM with clear fluid. Continue MIL with pitocin. FHTs reactive
[2024-06-14] MEDS: fentaNYL CITRATE INJ (*CRX) 100 MCG/2 ML VIAL 50 MCG IV PUSH (09:42)
[2024-06-14] MEDS: fentaNYL CITRATE INJ (*CRX) 100 MCG/2 ML VIAL IV PUSH (11:12)
[2024-06-14] MEDS: ONDANSETRON INJ 4 MG/2 ML VIAL IV PUSH ×2 (11:17→17:20)
--- NOTE | 2024-06-14 11:31 | WPDANESEPPF ---
Anes - Initial Pre Proc Eval Date/Time: 06/14/24 11:31 Surgeon: Dorita Valdes MD Pre Op Diagnosis: IOL Patient Data Age: 23 Gender: F Height: 1.57 m Weight: 64 kg Last Vital Signs Temp 36.5 C 06/14/24 11:26 Pulse 74 06/14/24 11:31 BP 129/73 06/14/24 11:31 Pulse Ox 99 06/14/24 11:30 Allergies Allergy/AdvReac Type Severity Reaction Status Date / Time dexmethylphenidate (From Allergy Severe Swelling Verified 06/11/24 12:07 Focalin) of Lip/Tongue/Throat amphetamine Allergy Unknown Rash Verified 06/11/24 12:07 dextroamphetamine Allergy Unknown Rash Verified 06/11/24 12:07 Bumble Bee Allergy Unknown Swelling Uncoded 06/11/24 12:07 Home Medications ?Medication ?Instructions ?Recorded ?Confirmed ?Type norgestimate 0.25 mg-ethinyl 1 tablet PO DAILY 09/01/21 06/14/24 History estradiol 0.035 mg tablet (Sprintec (28)) ferrous sulfate 325 mg (65 mg 325 mg PO HS 04/10/24 06/11/24 History iron) tablet (FeroSul) ondansetron 4 mg disintegrating 4 mg PO Q6H PRN nausea and vomiting 04/10/24 06/11/24 History tablet vit no.95-ferrous 1 tablet PO DAILY 04/10/24 06/11/24 History fumarate 28 mg-folic acid 800 mcg tablet () quetiapine 25 mg tablet 50 mg PO HS 04/10/24 06/14/24 History lamotrigine 25 mg tablet (Lamictal) 50 mg PO DAILY 06/11/24 06/14/24 History Laboratory Tests 06/14/24 06/14/24 05:24 05:25 WBC 10.3 H K/mm3 (4.5-10.0) RBC 3.98 L M/mm3 (4.2-5.4) Hgb 12.8 g/dL (12.0-15.0) Hct 38.3 % (37.0-47.0) MCV 96.2 fl (80-100) MCH 32.2 pg (26-34) MCHC 33.4 g/dl (32-36) RDW 12.4 % (11.5-14.5) Plt Count 248 k/mm3 (150-375) MPV 11.0 H fl (7.4-10.4) Immature Gran % (Auto) 0.9 H % (0-0.5) Neut % (Auto) 66.4 % (45.5-73.1) Lymph % (Auto) 24.0 % (18.3-44.2) [place] % (Auto) 6.9 % (2.6-8.5) Eos % (Auto) 1.2 % (0-4.4) Baso % (Auto) 0.6 % (0.2-1.2) Lymph # (Auto) 2.47 K/mm3 (0.9-3.2) [place] # (Auto) 0.7 H K/mm3 (0.1-0.6) Eos # (Auto) 0.1 K/mm3 (0-0.3) Baso # (Auto) 0.1 K/mm3 (0.0-0.1) Abs Immat Gran (auto) 0.09 H K/mm3 (0.00-0.031) Absolute Neuts (auto) 6.8 H K/mm3 (1.3-6.7) Absolute Nucleated RBC 0.000 K/mm3 (0.0-0.012) Nucleated RBC % 0.0 % (0.0-0.2) % Immature Plt Fraction 5.3 % (0.9-11.2) Sodium 135 L mmol/L (137-145) Potassium 3.3 L mmol/L (3.4-5.0) Chloride 106 mmol/L (98-107) Carbon Dioxide 20 L mmol/L (22-30) Anion Gap 9 mmol/L (4-12) BUN 5 L mg/dL (7-17) Creatinine 0.49 L mg/dL (0.7-1.0) Estim Creat Clear Calc 120 ml/min Estimated GFR > 60 (59 - ) Glucose 121 H mg/dL (65-110) Uric Acid 3.2 mg/dL (2.5-7.5) Calcium 8.9 mg/dL (8.4-10.2) Total Bilirubin 1.1 mg/dL (0.2-1.3) AST 30 U/L (14-36) ALT 35 U/L (6-35) Alkaline Phosphatase 171 H U/L (38-126) Total Protein 7.0 g/dL (6.3-8.2) Albumin 3.5 g/dL (3.5-5.1) Syphilis IgG/IgM Ab Negative (Negative) HIV 1&2 Ab/P24 Ag 4thGn Negative (Negative) Rubella IgG Antibody 51.5 IU/ML (10 - ) Blood Type O Positive Antibody Screen Negative Patient hx anesthesia problems: none Family hx anesthesia problems: none Results Review: All pre-operative results and documents have been reviewed as part of the pre-operative evaluation. [facility] Past Medical History Medical History ADHD Bipolar disorder Anxiety Surgical History Surgical History No pertinent past surgical history Family History Family History Mother No problems noted. Other Patient denies significant medical history Social History Social History Smoking status: Current every day smoker Tobacco type: e-cigarettes/vaping Second hand tobacco smoke exposure: No Alcohol intake: never Substance use: former Other substance usage details: Last used 2 weeks ago (middle May) Do You Feel Safe in your Home?: Yes Lack of Transportation: No Lack of Food: Never True Current Housing: I Have Housing Concerned About Future Housing: No Difficulty Paying Gas/Electric Bills: No Difficulty Paying for Meds: No Currently Unemployed: No Education: Grade School Difficulty w/ Childcare or Family Care: No Gender identity (if verbalized by the patient): Female Spiritual care concerns: No Anes - Eval Final PreProcedure Day of Procedure 06/14/24 11:31 Patient weight: normal Heart: regular rate and rhythm Lungs: clear to auscultation Airway: Mallampati scale class II Neurological: alert and oriented ASA classification: III Anesthetic plan: proceed Anesthesia type and monitoring: regional epidural and standard monitoring Results Review: All pre-operative results and documents have been reviewed as part of the pre-operative evaluation. Informed Consent: The patient's anesthetic plan and its attendant risks and benefits were discussed with the patient/family/POA. Questions were solicited and answers provided to the satisfaction of the patient/family/POA.
[2024-06-14] MEDS: QUEtiapine FUMARATE 25 MG TABLET 50 MG PO (21:58)
[2024-06-14] MEDS: lamoTRIgine 50 MG TABLET PO (22:02)
--- NOTE | 2024-06-14 23:06 | PM.OBPRVD ---
OB - Vaginal Delivery Note Procedure Delivery date: 06/14/24 Events: Elective Induction of Labor Induction method: AROM and Per Pitocin Protocol Delivery monitor: External FHT and Internal Uterine Route of delivery: Laceration Description: Perineal - 1st Degree Delivery repair: vicryl (3-0) Specimen: No Quantitative Blood Loss (ml): 150 Anesthesia type: Epidural Disposition: Floor Complications: No immediate complications Baby Date of : 06/14/24 Gestational Age by Date: 39 Infant gender: Female presentation: vertex position: Right Occiput Anterior Placenta delivery description: Spontaneous Cord Vessel Description: 3 Vessels, Nuchal Cord, Delayed Cord Clamping and Around Extremity score one minute: 7 score five minutes: 9
--- NOTE | 2024-06-14 23:07 | PM.OBDSVD ---
DS: Admitting Diagnosis Discharge Date 06/16/24 Admitting Diagnosis IUP 39 wks for MARY DS: Discharge Diagnosis Discharge Diagnosis (1) (normal spontaneous vaginal delivery): Code(s): O80 - Encounter for full-term uncomplicated delivery Status: Acute OB - DS: Summary OB Procedures : Ultrasound OB Procedures Intrapartum: Spontaneous Vag Delivery OB Procedures: : None Peripartum Data Infant Delivery Method: Natural Vaginal Laceration Description: Perineal - 1st Degree complications: none Status at Discharge Functional status at discharge: independent ambulation Overall status at discharge: patient is progressing back to baseline Time Spent with Patient Time attestation: Total time spent providing and/or coordinating discharge services: DS: Data Data Completed and Pending Labs on day of discharge: Labs from last 24 hours 06/14/24 06/14/24 05:25 05:24 WBC 10.3 H RBC 3.98 L Hgb 12.8 Hct 38.3 MCV 96.2 MCH 32.2 MCHC 33.4 RDW 12.4 Plt Count 248 MPV 11.0 H Immature Gran % (Auto) 0.9 H Neut % (Auto) 66.4 Lymph % (Auto) 24.0 [place] % (Auto) 6.9 Eos % (Auto) 1.2 Baso % (Auto) 0.6 Lymph # (Auto) 2.47 [place] # (Auto) 0.7 H Eos # (Auto) 0.1 Baso # (Auto) 0.1 Abs Immat Gran (auto) 0.09 H Absolute Neuts (auto) 6.8 H Absolute Nucleated RBC 0.000 Nucleated RBC % 0.0 % Immature Plt Fraction 5.3 Sodium 135 L Potassium 3.3 L Chloride 106 Carbon Dioxide 20 L Anion Gap 9 BUN 5 L Creatinine 0.49 L Estim Creat Clear Calc 120 Estimated GFR > 60 Glucose 121 H Uric Acid 3.2 Calcium 8.9 Total Bilirubin 1.1 AST 30 ALT 35 Alkaline Phosphatase 171 H Total Protein 7.0 Albumin 3.5 Syphilis IgG/IgM Ab Negative HIV 1&2 Ab/P24 Ag 4thGn Negative Rubella IgG Antibody 51.5 Blood Type O Positive Antibody Screen Negative Discharge Plan Discharge Attending physician on discharge: Dorita Valdes Discharging Clinician: Dorita Valdes Anticipated Discharge Date/Time: 06/16/24 23:08 Patient Disposition: Home Activity: may shower and pelvic rest Diet: regular Patient Instructions: Antibiotic Form Patient Language: [place] Citizen Stand Alone Forms: General Discharge Information Follow-up/Referrals: Dorita Valdes MD [Physician] - 6 Weeks (3 wks for Nexplanon) Discharge Medications: Continued ferrous sulfate [FeroSul] 325 mg (65 mg iron) tablet 325 mg PO HS ondansetron 4 mg tablet,disintegrating 4 mg PO Q6H PRN (Reason: nausea and vomiting) quetiapine 25 mg tablet 50 mg PO HS PNV cmb#95-ferrous fumarate-FA [] 28 mg iron- 800 mcg tablet 1 tablet PO DAILY lamotrigine [Lamictal] 25 mg tablet 50 mg PO DAILY Discontinued norgestimate-ethinyl estradiol [Sprintec (28)] 0.25-35 mg-mcg tablet 1 tablet PO DAILY Date of admission: 06/14/24 04:52 Primary Care Provider: Zane, ABBIE Laguerre Admitting Provider: Dorita Valdes Attending physician on admission: Dorita Valdes Condition: Stable
[2024-06-14] MEDS: OXYTOCIN 30 UNITS/NS 500 ML 30 UNITS/500 ML BAG 125 UNITS IV CONT (23:14)
[2024-06-15] VITALS (12 sets, daily range): BP systolic 109–140; BP diastolic 72–106; PULSE 53–90; RESP 14–16; TEMP 36.3–37.3; O2SAT 97–99
--- NOTE | 2024-06-15 01:16 | OBPPTRN ---
Patient transferred to post room #284 via wheelchair. Support person present. Oriented to unit, room, information board, rooming in, admission packet and security measures. Patient verbalizes understanding.
[2024-06-15 04:29] LABS: Hematocrit 37.1 % (37.0-47.0); Hemoglobin 12.7 g/dL (12.0-15.0)
[2024-06-15] MEDS: ACETAMINOPHEN 325 MG TABLET 650 MG PO (06:13)
--- NOTE | 2024-06-15 07:30 | PC.NURSE ---
Met with patient because she called out for assistance with bottle feeding. She is choosing to pump and bottle feed at this time. Patient and her mother shown how to encourage baby to open her mouth for the bottle nipple or to slide it between her lips to encourage her suck reflex. Baby sucked vigorously and took 16ml in less than 10 minutes. Mother shown how to provide chin support if needed. Mother is encouraged to pump at least 8 times each 24 hours, at least once at night. She is using her own wearable pump. Patient is encouraged to call out at the next feeding time if assistance is needed or if she has any questions or concerns. RN updated.
[2024-06-15] MEDS: MULTIVIT/MIN/PREN/FOL AC/IRON TABLET 1 TAB PO (08:30)
[2024-06-15] MEDS: DOCUSATE SODIUM 100 MG CAPSULE PO ×2 (08:30→13:55)
--- NOTE | 2024-06-15 12:16 | P.PNOB_ITS ---
OB - PN: Subj Subjective Date/time seen: 06/15/24 12:16 Patient comments: no complaints and pain well controlled baby status: doing well OB - PN: Obj Data Labs 06/15/24 04:13 06/14/24 05:24 Labs: Laboratory Results - last 24 hr 06/15/24 04:13 Hgb 12.7 Hct 37.1 OB - PN A/P Plan day: 1 Plan: routine care Time Spent With Patient Time: Total time spent is greater than 50% in coordination of care (as documented) at patient's floor/unit and/or counseling patient: Exam 2 : Bimanual exam- vagina & uterus: other (Uterus firm, nt @U)
[2024-06-15] MEDS: IBUPROFEN 600 MG TABLET PO (13:56)
--- NOTE | 2024-06-15 17:00 | PC.NURSE ---
Assisted patient to bottle feeding expressed breast milk with a bottle. Patient and her mother have struggled to get baby to take the bottle because she sometimes will gag when the nipple is placed far enough in her mouth. Educated that feeding is a learning curve and that if baby gags, remove the nipple and try again. Baby sucks vigorously once she gets started with the bottle. Encouraged patient to call out for further assistance with feedings if needed. RN updated.
[2024-06-15] MEDS: lamoTRIgine 50 MG TABLET PO (20:02)
[2024-06-15] MEDS: QUEtiapine FUMARATE 25 MG TABLET 50 MG PO (20:02)
[2024-06-16] MEDS: ACETAMINOPHEN 325 MG TABLET 650 MG PO (04:27)
[2024-06-16 07:15] VITALS: BP 131/87; PULSE 58; RESP 18; TEMP 36.3; O2SAT 98
--- NOTE | 2024-06-16 07:32 | P.PNOB_ITS ---
OB - PN: Subj Subjective Date/time seen: 06/16/24 07:32 Patient comments: no complaints and pain well controlled baby status: doing well OB - PN: Obj Data Labs 06/15/24 04:13 06/14/24 05:24 OB - PN A/P Plan day: 2 Plan: routine care, discharge home and other (3 wks for Nexplanon) Time Spent With Patient Time: Total time spent is greater than 50% in coordination of care (as documented) at patient's floor/unit and/or counseling patient: Exam 2 : Bimanual exam- vagina & uterus: other (Uterus firm, nt @U)
[2024-06-16] MEDS: DOCUSATE SODIUM 100 MG CAPSULE PO (08:45)
[2024-06-16] MEDS: MULTIVIT/MIN/PREN/FOL AC/IRON TABLET 1 TAB PO (08:45)
--- NOTE | 2024-06-16 11:45 | PC.NURSE ---
Went to patient room to discuss needs. There was some question last night about whether her medications were compatible with . They were checked in [facility] Mother[facility] and determined to be safe for use with . Today, mom states that 'baby spit up all the breast milk' she had yesterday and that she has stopped /pumping. She has decided to exclusively bottle feed with Gentlease. Encouraged her to reach out if she has any questions or concerns. Patient verbalized understanding. RN updated.
[2024-06-16] MEDS: IBUPROFEN 600 MG TABLET PO (12:30)
[2024-06-17 09:33] VITALS: BP 126/79; PULSE 71; RESP 18; TEMP 36.6; O2SAT 99
== END 2024-06-16 16:43 | disposition home or self-care (01) | DRG 806 ==
LOC: ANHLDR 23:09 → ANHOB2 06-15 02:01
PROVIDERS: Admitting Provider Obstetrics & Gynecology Gynecology; Visit Provider Obstetrics & Gynecology Gynecology
DX: O69.81X0 Labor and delivery complicated by cord around neck, without compression, not applicable or unspecified (principal); O99.324 Drug use complicating childbirth; Z37.0 Single live birth; Z3A.39 39 weeks gestation of pregnancy; F12.90 Cannabis use, unspecified, uncomplicated; O70.0 First degree perineal laceration during delivery
CPT/HCPCS: 36415; 80053; 84550; 85014; 85018; 85025; 85055; 86593; 86703; 86762; 86850; 86900; 86901; A9270; G0432; J2405; J2590; J2795; J3010; J7120

== ENCOUNTER 2024-07-20 15:59 | Emergency (ER) | payer BC, MEDICAID, SELFPAY ==
--- NOTE | ~2024-07-20 | US_ITS ---
US pelvic complete Ordering provider: David Oneill III, DO History: . vaginal bleeding 5 weeks post . Comparison: None. Technique: Transabdominal ultrasound of the pelvis (Doppler ultrasound interrogation techniques used as needed for this exam.) FINDINGS: CERVIX: Normal. UTERUS: Measures 8.5x 5.4x 7.8 cm in length which is within normal limits and is anteverted. No myom etrial masses. ENDOMETRIUM: thickness measuring 24 mm. No endometrial masses, cysts or fluid. CUL DE SAC: No free fluid. RIGHT OVARY: Normal in size measuring 3.1x 3.2x 3 cm. Normal echotexture. Doppler vascular flow prese nt. Cyst is seen. LEFT OVARY: Normal in size measuring 3.3x 2.5x 1.6 cm. Normal echotexture. Doppler vascular flow pres ent. ADNEXA: Normal. No mass. IMPRESSION: Grossly thickened endometrium. Retained products or clots cannot be excluded. Clinical correlation an d follow-up advised. Right ovarian cyst. Otherwise, normal pelvic ultrasound. Reviewed, dictated and finalized at location A. IMPRESSION: Grossly thickened endometrium. Retained products or clots cannot be excluded. C linical correlation and follow-up advised. Right ovarian cyst. Otherwise, normal pelvic ultrasound.
[2024-07-20 16:01] VITALS: BP 156/84; PULSE 81; RESP 16; TEMP 36.4; O2SAT 97
--- NOTE | 2024-07-20 16:26 | ED.FEMALEGU ---
HPI - Female Genitourinary General Chief complaint: Vaginal Bleeding Stated complaint: vag bleed Time Seen by Provider: 07/20/24 16:03 History of Present Illness HPI Narrative: Pt is 5 weeks post and is having vaginal bleeding going through a pad every 30 minutes. Pt has some intermittent upper abdominal pain. Pt called Dr Nicole and told to come to ER. Pt does not have a history of elevated BP. Related Data Home Medications ?Medication ?Instructions ?Recorded ?Confirmed ?Last Taken ?Type ferrous sulfate 325 mg (65 mg 325 mg PO HS 04/10/24 06/11/24 05/19/24 History iron) tablet (FeroSul) ondansetron 4 mg disintegrating 4 mg PO Q6H PRN nausea and vomiting 04/10/24 06/11/24 04/10/24 13:00 History tablet vit no.95-ferrous 1 tablet PO DAILY 04/10/24 06/11/24 06/10/24 History fumarate 28 mg-folic acid 800 mcg tablet () quetiapine 25 mg tablet 50 mg PO HS 04/10/24 06/14/24 06/13/24 21:00 History lamotrigine 25 mg tablet (Lamictal) 50 mg PO DAILY 06/11/24 06/14/24 06/13/24 21:00 History Allergies Allergy/AdvReac Type Severity Reaction Status Date / Time dexmethylphenidate (From Allergy Severe Swelling Verified 06/11/24 12:07 Focalin) of Lip/Tongue/Throat amphetamine Allergy Unknown Rash Verified 06/11/24 12:07 dextroamphetamine Allergy Unknown Rash Verified 06/11/24 12:07 Bumble Bee Allergy Unknown Swelling Uncoded 06/11/24 12:07 Review of Systems Review of Systems: All systems reviewed & are unremarkable except as noted in HPI and below PMFSH Past Medical History Medical History ADHD Bipolar disorder Anxiety Surgical History Surgical History No pertinent past surgical history Family History Family History Mother No problems noted. Other Patient denies significant medical history Social History Social History Smoking status: Current every day smoker Tobacco type: e-cigarettes/vaping Second hand tobacco smoke exposure: No Alcohol intake: never Substance use: former Other substance usage details: Last used 2 weeks ago (middle May) Do You Feel Safe in your Home?: Yes Lack of Transportation: No Lack of Food: Never True Current Housing: I Have Housing Concerned About Future Housing: No Difficulty Paying Gas/Electric Bills: No Difficulty Paying for Meds: No Currently Unemployed: No Education: Grade School Difficulty w/ Childcare or Family Care: No Gender identity (if verbalized by the patient): Female Spiritual care concerns: No Exam Const: General: healthy appearing and no acute distress Nutritional Appearance: well nourished Orientation/consciousness: patient oriented x3 Limitations: no limitations HENMT: Head: normal to inspection Mouth: Yes Normal oral and palatal mucosa present Eyes: EOM: EOMs intact bilaterally Neck: Neck: normal visual inspection and no meningeal signs Resp: Auscultation: clear to auscultation bilaterally Cardio: Rate: regular rate Rhythm: regular rhythm GI: GI Palp: Yes Soft to palpation and No Tenderness to palpation present (GI) Auscultation: normal bowel sounds Skin: General skin exam: normal color Rashes: no rashes Wounds: no wounds Neuro: General: patient oriented x3, moves all extremities and no focal motor deficits Speech: normal speech Extrem: General: normal to inspection and no clubbing, cyanosis or edema Psych: Appearance: grossly normal Mental Status: mental status grossly normal Affect: normal affect Attitude: cooperative Course Vital Signs Vital signs: Vital Signs Temperature 97.6 F 07/20/24 16:01 Pulse Rate 81 07/20/24 16:01 Respiratory Rate 16 07/20/24 16:01 Blood Pressure 156/84 H 07/20/24 16:01 Pulse Oximetry 97 07/20/24 16:01 Oxygen Delivery Room Air 07/20/24 16:01 Temperature 97.6 F 07/20/24 16:01 Pulse Rate 81 07/20/24 16:01 Respiratory Rate 16 07/20/24 16:01 Blood Pressure 156/84 H 07/20/24 16:01 Pulse Oximetry 97 07/20/24 16:01 Oxygen Delivery Room Air 07/20/24 16:01 MDM - Female Genitourinary MDM Narrative Medical decision making narrative: Pt here for heavy vagina bleeding. bp is up. will get labs and sono and call help desk assistant. dr nicole said is likely first period after since bleeding stopped. said can give txa 1300 tid for 5 days. no signs of HELLP renal function normal blood ct normal. BP normal on recheck. Lab Data 07/20/24 16:29 07/20/24 16:29 Labs: Lab Results 07/20/24 07/20/24 Range/Units 16:28 16:29 WBC 8.7 (4.5-10.0) K/mm3 RBC 4.05 L (4.2-5.4) M/mm3 Hgb 12.8 (12.0-15.0) g/dL Hct 39.7 (37.0-47.0) % MCV 98.0 (80-100) fl MCH 31.6 (26-34) pg MCHC 32.2 (32-36) g/dl RDW 12.2 (11.5-14.5) % Plt Count 276 (150-375) k/mm3 MPV 9.5 (7.4-10.4) fl Immature Gran % (Auto) 0.7 H (0-0.5) % Neut % (Auto) 58.5 (45.5-73.1) % Lymph % (Auto) 30.2 (18.3-44.2) % Price % (Auto) 7.4 (2.6-8.5) % Eos % (Auto) 2.4 (0-4.4) % Baso % (Auto) 0.8 (0.2-1.2) % Lymph # (Auto) 2.64 (0.9-3.2) K/mm3 Price # (Auto) 0.7 H (0.1-0.6) K/mm3 Eos # (Auto) 0.2 (0-0.3) K/mm3 Baso # (Auto) 0.1 (0.0-0.1) K/mm3 Abs Immat Gran (auto) 0.06 H (0.00-0.031) K/mm3 Absolute Neuts (auto) 5.1 (1.3-6.7) K/mm3 Absolute Nucleated RBC 0.000 (0.0-0.012) K/mm3 Nucleated RBC % 0.0 (0.0-0.2) % PT 13.4 (11.1-14.7) Seconds INR 1.0 APTT 32.2 (22.3-36.8) Seconds Sodium 139 (137-145) mmol/L Potassium 3.7 (3.4-5.0) mmol/L Chloride 107 (98-107) mmol/L Carbon Dioxide 24 (22-30) mmol/L Anion Gap 8 (4-12) mmol/L BUN 11 D (7-17) mg/dL Creatinine 0.59 L (0.7-1.0) mg/dL Estim Creat Clear Calc 101 ml/min Estimated GFR > 60 (59 - ) Glucose 93 (65-110) mg/dL Calcium 9.0 (8.4-10.2) mg/dL Magnesium 2.0 (1.6-2.3) mg/dL Total Bilirubin 1.1 (0.2-1.3) mg/dL AST 26 (14-36) U/L ALT 23 (6-35) U/L Alkaline Phosphatase 51 (38-126) U/L Total Protein 7.0 (6.3-8.2) g/dL Albumin 4.2 (3.5-5.1) g/dL Beta HCG, Quant < 2.39 mIU/ML Blood Type O Positive Antibody Screen Negative Discharge Plan Discharge Clinical Impression: Vaginal bleeding Patient Disposition: Home Condition: Improved Instructions: Antibiotic Form, Menorrhagia (ED) Patient Language: [place] Prescriptions: New tranexamic acid 650 mg tablet 1,300 mg PO TID Qty: 30 0RF No Action ferrous sulfate [FeroSul] 325 mg (65 mg iron) tablet 325 mg PO HS ondansetron 4 mg tablet,disintegrating 4 mg PO Q6H PRN (Reason: nausea and vomiting) quetiapine 25 mg tablet 50 mg PO HS PNV cmb#95-ferrous fumarate-FA [] 28 mg iron- 800 mcg tablet 1 tablet PO DAILY lamotrigine [Lamictal] 25 mg tablet 50 mg PO DAILY Follow-up/Referrals: PHYSICIAN NOT ON STAFF,NONSTAFF [Primary Care Provider] -
[2024-07-20 16:41] LABS: Basophils Absolute Auto 0.1 K/mm3 (0.0-0.1); Basophils Percent Auto 0.8 % (0.2-1.2); Eosinophils Absolute Auto 0.2 K/mm3 (0-0.3); Eosinophils Percent Auto 2.4 % (0-4.4); Hematocrit 39.7 % (37.0-47.0); Hemoglobin 12.8 g/dL (12.0-15.0); Immature Granulocyte Absolute 0.06 K/mm3 (0.00-0.031); Immature Granulocyte Percent A 0.7 % (0-0.5); Lymphocytes Absolute Auto 2.64 K/mm3 (0.9-3.2); Lymphocytes Percent Auto 30.2 % (18.3-44.2); Mean Corpuscular HGB Conc 32.2 g/dl (32-36); Mean Corpuscular Hemoglobin 31.6 pg (26-34); Mean Platelet Volume 9.5 fl (7.4-10.4); Monocytes Absolute Auto 0.7 K/mm3 (0.1-0.6); Monocytes Percent Auto 7.4 % (2.6-8.5); Neutrophils Absolute Auto 5.1 K/mm3 (1.3-6.7); Neutrophils Percent Auto 58.5 % (45.5-73.1); Platelet Count Result 276 k/mm3 (150-375); Red Blood Count 4.05 M/mm3 (4.2-5.4); Red Cell Distribution Width 12.2 % (11.5-14.5); White Blood Count 8.7 K/mm3 (4.5-10.0)
[2024-07-20 16:57] LABS: Alanine Aminotransferase 23 U/L (6-35); Albumin Level 4.2 g/dL (3.5-5.1); Alkaline Phosphatase 51 U/L (38-126); Anion Gap 8 mmol/L (4-12); Aspartate Amino Transferase 26 U/L (14-36); Bilirubin,Total 1.1 mg/dL (0.2-1.3); Blood Urea Nitrogen 11 mg/dL (7-17); Carbon Dioxide 24 mmol/L (22-30); Chloride 107 mmol/L (98-107); Estimated CRCL calculation 101 ml/min; Estimated Glomerular Filt Rate > 60; Glucose 93 mg/dL (65-110); Potassium 3.7 mmol/L (3.4-5.0); Sodium 139 mmol/L (137-145)
[2024-07-20 17:00] VITALS: BP 117/77; PULSE 65; RESP 16; O2SAT 100
--- OUTSIDE RECORDS SUMMARY | 2024-07-20 17:08 | XMS_ITS | Clinical Summary ---
Author Organization [facility] Address [address] [place] [address] Phone Care Team Providers Care Cleater Name Role Phone Mitchel Woods MD Primary Care Provider [phone] Social History Tobacco Use Types Packs/Day Years [...] 7:03 PM CDT Height 157.5 cm (5' 2) 10/15/2021 7:03 PM CDT Body Mass Index 18.47 10/15/2021 7:03 PM CDT Plan of Treatment Not on file Care Teams Cleater Relationship Specialty Start Date End Date Mitchel Woods [place] [address] PCP - General Internal Medicine 10/15/21
--- OUTSIDE RECORDS SUMMARY | 2024-07-20 17:08 | XMS_ITS | Clinical Summary ---
Author Organization [facility] Address [address] [place] [address] Phone Care Team Providers Care Tree Trimming Line Technician Name Role Phone Mitchel Woods MD Primary Care Provider [phone] Allergies Active Allergy Reactions Criticality Noted Date [...] Encounters Date Type Department Care Team Description 07/01/2024 External Device Data [facility] ABSTRACTION Provider, Abstract 07/01/2024 External Device Data [facility] Provider, Abstract 07/01/2024 External Device Data [facility] Provider, Abstract 06/30/2024 External Device Data [facility] Provider, Abstract 06/29/2024 External Device Data [facility] Provider, Abstract 05/25/2024 External Device Data [facility] Provider, Abstract 04/28/2024 1:00 PM CDT Initial [facility] [address] [place] [phone] Lesley Webb MD High risk , antepartum (Primary Dx); Maternal mental disorder, antepartum; uterine contractions in third trimester, antepartum; Marijuana use during ; 32 weeks gestation of 04/28/2024 External Device Data [facility]STRACTION Provider, Abstract 04/28/2024 External Device Data [facility] ABSTRACTION Provider, Abstract 04/27/2024 Abstract [facility] - [facility] [address] [phone] Ana Herrera RN 04/22/2024 2:11 PM CDT - 04/22/2024 11:59 PM CDT Hospital Encounter [facility] [address] [place] [address] Dorita Valdes MD Discharge Disposition: Home or Self Care 04/20/2024 External Device Data [facility] ABSTRACTION Provider, Abstract 04/20/2024 External Device Data [facility] ABSTRACTION Provider, Abstract 04/19/2024 Telephone [facility] [address] [place] [phone] Vishal Landon MD Appointment Notification from Last 3 Months Social History Tobacco [...] 36.4 C (97.5 F) 03/19/2018 8:09 AM AURICULAR THERAPIST Respiratory Rate 20 04/28/2024 1:02 PM CDT Oxygen Saturation 99% 04/28/2024 1:02 PM CDT Inhaled Oxygen Concentration - - Weight 64 kg (141 lb) 04/28/2024 1:02 PM CDT Height 157.5 cm (5' 2) 04/28/2024 1:02 PM CDT Body Mass Index [...] HARPER Study Date: 04/22/2024 2:44pm Pat. NO: [id number] Referring MD: DORITA VALDES MD Site: [facility] Car Driver: Johnna Thacker RDMS : 2000 Age: 23 ----- INDICATION ----- Anatomy Survey Family History of Other Condition MOB h/o SVT CODING ----- Diagnoses Z3A.31: Weeks of gestation Z84.89: Family history of other specified conditions Z36.3: Encounter for screening for malformations Procedures 14607: Ultrasound, uterus, real time with image documentation, [...] 4 lb 0 oz EFW by Hadlock ([id number]) Head / Face / Neck Biometry: CM [...] Heart / Thorax RVOT view. 3-vessel view. 7-ijrrut-trbnbzm view. Aortic arch view. Bicaval view. Ductal [...] and date of were verified by the seismology technical officer prior to the exam IMPRESSION ----- 1. [...] Pat. Name:Masood HARPER Date:04/22/2024 2:44pm Pat. NO: [id number] MD:DORITA VALDES MD [facility]:Johnna Thacker RDMS :2000Age:23 ----- INDICATION ----- Anatomy Survey Family History of Other Condition MOB h/o SVT CODING ----- Diagnoses Z3A.31: Weeks of gestation Z84.89: Family history of other specifiedconditions Z36.3: Encounter for screening formalformations Procedures 06829: Ultrasound, uterus, real time withimage documentation, follow up, transabdominal approach per fetus HISTORY ----- OB History 1 MATERNAL ASSESSMENT ----- Physical Exam Initial weight 62 kg, 137 lb. Initial BMI 20.83kg/m METHOD ----- Transabdominal ultrasound examination ----- [place] . Number of fetuses: 1 DATING ----- Method of dating:based on stated ODILIA GA by prior [id number] w + 5 d ODILIA by prior assessment:06/19/2024 Ultrasound examination on:04/22/2024 GA by U/S based upon:AC, BPD, EFW, Femur, HC GA by U/S31 w + 0 d ODILIA by U/S:06/24/2024 Assigned:based on stated ODILIA, selected on 04/22/2024 Assigned [id number] w + 5 d Assigned DOILIA:06/19/2024 BIOMETRY ----- BPD 73.8 mm 29w 4d2% [...] 4 lb 0 oz EFW by Hadlock ([id number]) Head / Face / Neck Biometry: CM [...] Heart / Thorax RVOT view. 3-vessel view. 0-ozipaw-bufpelz view.Aortic arch view. Bicaval view. Ductal arch [...] and date of were verified by the seismology technical officer prior tothe exam IMPRESSION ----- 1. Single [...] of this patient. us Dorita Valdes MD ORDERABLES Final Res ult from Last 3 Months Insurance [place]ICAID [place] [address] BLUE ACCESS CHOICE BLUE ACCESS CHOICE [place] Advance Directives For more information, please contact: [phone] * Full Code (Latest Code Status on File) Date Activated Date Inactivated Comments 03/14/2018 11:58 PM 03/19/2018 2:58 PM * Full Code Date Activated Date Inactivated Comments 03/13/2018 5:12 PM 03/14/2018 6:16 PM Care Teams Tree Trimming Line Technician Relationship Specialty Start Date End Date Mitchel Woods MD PCP - General Family Practice 03/13/18"
--- OUTSIDE RECORDS SUMMARY | 2024-07-20 17:08 | XMS_ITS | Referral Summary ---
Author Organization [facility] Address [address] [place] [address] Care Team Providers Care Armed Custom Protection Officer Name Role Phone Carlotta Degroot NP Primary Care Provider [phone] Encounters Date Type Department Care Team Description 05/13/2024 2:45 PM CDT Lab [facility] [address] [place] [id number] from Last 3 Months Allergies Active Allergy [...] SI She goes through Carlotta Degroot at [facility]. SVT (supraventricular tachycardia) 10/16/2022 Assessment & Plan (12/02/2023 3:22 PM CDT): She has a h/o palpations. She has done holter monitor before The last was about 3 months ago Will see if she can see Dr. Leal during If not, will refer to [facility]. Manic behavior 10/17/2021 Assessment & Plan (12/23/2023 2:19 PM QUALITY ASSURANCE SUPERVISOR FINAL): She is going to continue on with [...] to converse. Verified that she has appt w/[facility] 11/20/21. Verified that she will go to [...] No longer seeing counselor but still sees psych nurse Adair Yun at [facility] in [place]. MOP unable to control Shauna at this time during appt. Not tearful but flat/blunt affect. Denies thoughts of SI/HI on direct questioning. Assessment & Plan (10/09/2018 10:12 AM CDT): No longer seeing counselor. Still seeing psych nurse: Adair Yun at [facility] in [place]. Difficulty taking medications per MOP confidentially on [...] 020 Assessment & Plan (12/25/2018 8:37 AM QUALITY ASSURANCE SUPERVISOR FINAL): Rapid flu swab: NEGATIVE This looks viral [...] vulnerable. Assessment & Plan (12/25/2018 8:37 AM QUALITY ASSURANCE SUPERVISOR FINAL): Discussed and the patient refuses immunization today. Educated regarding the need to vaccinate for personal protection and to limit the viruses in the community to protect those most vulnerable. Flu-like symptoms 12/24/2018 10/31/2019 Assessment & Plan (12/25/2018 8:37 AM QUALITY ASSURANCE SUPERVISOR FINAL): NEGATIVE rapid flu swab in office. School [...] on file Legal Sex Female 11:47 AM QUALITY ASSURANCE SUPERVISOR FINAL Gender Identity Female 11/15/2021 7:51 PM CDT Sexual Orientation Straight 11/15/2021 7: 51 PM CDT Last Filed Vital Signs Vital Sign Reading Time Taken Comments Blood Pressure 116/64 03/28/2024 12:44 PM QUALITY ASSURANCE SUPERVISOR FINAL Pulse 79 03/28/2024 12:44 PM QUALITY ASSURANCE SUPERVISOR FINAL Temperature 36.6 C (97.9 F) 03/28/2024 12:44 PM QUALITY ASSURANCE SUPERVISOR FINAL Respiratory Rate 18 03/28/2024 12:4 4 PM QUALITY ASSURANCE SUPERVISOR FINAL Oxygen Saturation 99% 03/28/2024 12: 44 PM QUALITY ASSURANCE SUPERVISOR FINAL Inhaled Oxygen Concentration - - Weight 61.1 kg (134 lb 12.8 oz) 025 12:44 PM QUALITY ASSURANCE SUPERVISOR FINAL Height 157.5 cm (5' 2) 03/28/2024 12:4 4 PM QUALITY ASSURANCE SUPERVISOR FINAL Body Mass Index 24.66 03/28/2024 12:44 PM QUALITY ASSURANCE SUPERVISOR FINAL Plan of Treatment Not on file Procedures Procedure Name Priority Date/Time Associated Diagnosis Comments DIFFERENTIAL AUTO Routine 05/13/2024 2:4 2 PM CDT VITAMIN D 25 HYDROXY Routine 05/13/2024 2:42 PM CDT CBC WITH AUTO DIFFERENTIAL Routine 05/13/2024 2:42 PM CDT RPR Routine 05/13/2024 2:42 PM CDT HIV 1/2 ANTIBODY PLUS P24 ANTIGEN Routine 05/13/2024 2:42 PM CDT HEPATITIS C ANTIBODY Routine 02/26/2024 2:51 PM QUALITY ASSURANCE SUPERVISOR FINAL N. GONORRHOEAE/C. TRACHOMATIS AMPLIFICATION Routine 12/02/2023 4:42 PM CDT PAP, REFLEX HPV Routine 12/02/2023 4:42 PM CDT Encounter for supervision of normal first in first trimester from Last 3 Months or Most Recently Relevant to Health Maintenance Results * (ABNORMAL) Differential, auto (05/13/2024 2:42 PM CDT) Neutrophil abs 10.48(H) 1.50 - 6.50 K/cumm Comment:Testing performed by : [facility], [address] [place] [address]., [id number] Imm gran abs 0.23(H) 0.00 - 0.10 K/cumm [facility] ([facility]) Comment:Testing performed by : [address] [id number] Lymphocyte abs 2.40 0.80 - 3.30 K/cumm [facility] ([facility]) Comment:Testing performed by : [facility], [address] [place] [address]., [id number] Monocyte abs 0.85(H) 0.20 - 0.80 K/cumm [facility] ([facility]) Comment:Testing performed by : [address], [address] Eosinophil abs 0.07 0.00 - 0.50 K/cumm [facility] ([facility]) Comment:Testing performed by : [address], [address] Basophil abs 0.07 0.00 - 0.10 K/cumm [facility] ([facility]) Comment:Testing performed by : [facility], [address] [place] [address]., [id number] Neutrophil pct 74.4 % [facility] ([facility]) Comment: Interpretive Data Percent cell count reference ranges are not reported, since discordance with absolute values may lead to misinterpretation of CBC data. Current Interpretive Data was last revised on 2017. Testing performed by: [facility], [address] [place] [address]., [id number] Imm gran pct 1.6 % [facility] ([facility]) Comment: Interpretive Data Percent cell count reference ranges are not reported, since discordance with absolute values may lead to misinterpretation of CBC data. Current Interpretive Data was last revised on 2017. Testing performed by: [facility], [address] [place] [address]., [id number] Lymphocyte pct 17.0 % [facility] ([facility]) Comment: Interpretive Data Percent cell count reference ranges are not reported, since discordance with absolute values may lead to misinterpretation of CBC data. Current Interpretive Data was last revised on 2017. Testing performed by: [facility], [address] [place] [address]., [id number] Monocyte pct 6.0 % [facility] ([facility]) Comment: Interpretive Data Percent cell count reference ranges are not reported, since discordance with absolute values may lead to misinterpretation of CBC data. Current Interpretive Data was last revised on 2017. Testing performed by: [facility], [address] [place] [address]., [id number] Eosinophil pct 0.5 % [facility] ([facility]) Comment: Interpretive Data Percent cell count reference ranges are not reported, since discordance with absolute values may lead to misinterpretation of CBC data. Current Interpretive Data was last revised on 2017. Testing performed by: [address] [address] Basophil pct 0.5 % [facility] ([facility]) Comment: Interpretive Data Percent cell count reference ranges are not reported, since discordance with absolute values may lead to misinterpretation of CBC data. Current Interpretive Data was last revised on 2017. Testing performed by: [address] [address] Blood 05/13/2024 2:42 PM CDT 05/13/2024 8:10 PM CDT Dorita Valdes MD LAB BLOOD ORDERABLES Fin al Result Performing Organization Address [facility] Co de Phone Number [facility] ([place]) 1 [facility] [place] [address] * HIV 1/2 Antibody plus p24 Antigen Blood (05/13/2024 2:42 PM CDT) Pathologist [facility] HIV 1/2 ab + p24 ag Nonreactive Nonreactive Comment: Nonreactive for HIV-1 antigen and HIV-1/HIV-2 antibodies. No laboratory evidence of HIV infection. If acute HIV infection is suspected, consider testing for HIV-1 RNA. Testing performed by: [address], [address] Blood 05/13/2024 2:42 PM CDT 05/13/2024 7:45 PM CDT us Dorita Valdes MD LAB MICROBIOLOGY - GENER AL ORDERABLES Final Result Performing Organization Address [facility] Co de Phone Number [facility] ([place]) [address] [place] [address] * (ABNORMAL) CBC with auto differential (05/13/2024 2:42 PM CDT) Pathologist [facility] WBC 14.10(H) 3.80 - 9.90 K/cumm Comment:Testing performed by : [address] [address] Hgb 13.3 11.9 - 15.5 g/dL [facility] ([place]) Comment:Testing performed by : [address], [address] Hct 40.2 35.6 - 45.5 % [facility] ([place]) Comment:Testing performed by : [address] [address] Plt 303 150 - 400 K/cumm [facility]VI LUNDBERG ([place]) Comment:Testing performed by : [facility] [address] [place] [address], [address] MPV 10.5 9.1 - 12.3 fL [facility] ([facility]) Comment:Testing performed by : [address], [address] RBC 3.98 3.90 - 5.20 M/cumm [facility] ([facility]) Comment:Testing performed by : [address], [address] MCV 101.0(H) 81.3 - 96.4 fL [facility] ([facility]) Comment:Testing performed by : [facility], [address] [place] [address], [address] MCH 33.4(H) 27.1 - 33.3 pg [facility] ([facility]) Comment:Testing performed by : [address], [address] MCHC 33.1 32.3 - 35.7 g/dL [facility] ([facility]) Comment:Testing performed by : [address], [address] RDW CV 13.2 11.1 - 14.9 % [facility] ([facility]) Comment:Testing performed by : [address], [address] RDW SD 49.6(H) 35.7 - 48.1 fL [facility] ([facility]) Comment:Testing performed by : [address], [address] NRBC abs 0.00 0.00 - 0.01 K/cumm [facility] ([facility]) Comment:Testing performed by : [address], [address] Blood 05/13/2024 2:42 PM CDT 05/13/2024 8:10 PM CDT us Dorita Valdes MD LAB BLOOD ORDERABLES Fin al Result [facility] ([place]) 1 [facility] [place] [address] * Vitamin D 25 hydroxy (05/13/2024 2:42 PM CDT) Pathologist [facility] Vitamin D 25-OH 61 30 - 80 ng/mL Comment:Testing performed by : [facility], [address] [place] [address]., [id number] Blood 05/13/2024 2:42 PM CDT 05/13/2024 8:10 PM CDT Dorita Valdes MD LAB BLOOD ORDERABLES Fin al Result Performing Organization Address City/[facility] Co de Phone Number [facility]) 1 [facility] [place] [place] [address] * RPR Blood (05/13/2024 2:42 PM CDT) [facility] RPR Nonreactive Nonreactive Comment:Testing performed by : [facility], [address] [place] [address]., [id number] Blood 05/13/2024 2:42 PM CDT 05/13/2024 8:10 PM CDT Dorita Valdes MD LAB MICROBIOLOGY - GENER AL ORDERABLES Final Result Performing Organization Address [facility] de Phone Number [facility]) [address] [facility] [place] [address] * Hepatitis C antibody Blood (02/26/2024 2:51 PM QUALITY ASSURANCE SUPERVISOR FINAL) Pathologist [facility] Hep C Ab Nonreactive Nonreactive Comment: Interpretive [...] last revised on 2019. Testing performed by: [facility], [address] [place] [address]., [id number] Blood 02/26/2024 2:51 PM QUALITY ASSURANCE SUPERVISOR FINAL 02/26/2024 2:54 PM QUALITY ASSURANCE SUPERVISOR FINAL us Dorita Valdes MD LAB MICROBIOLOGY - GENER AL ORDERABLES Final Result [facility] ([place]) 1 [facility] [place] [address] * (ABNORMAL) Pap, reflex HPV (12/02/2023 4:42 [...] clinical correlation and follow-up as clinically appropriate Enterprise Architect Manager Que st Jewel Agosto Comment: PCM, CT(ASCP) CT Screening Location: [place] [address] [place] [address] Pathologist Stephane Agosto Comment: John Ulloa M.D., [...] MD LAB CYTOLOGY ORDERA BLES Final Result [facility] [address] [place] [address] * N. gonorrhoeae/C. trachomatis Amplification (12/02/2023 4:42 PM CDT) C. trachomatis RNA NOT DETECTED NOT DETECTED [facility] N. gonorrhoeae RNA NOT DETECTED NOT DETECTED [facility] [place] Comment [facility] Comment: The analytical performance characteristics of this assay, when used to test SurePath(TM) specimens have been determined by [facility]. The modifications have not been cleared or approved by the FDA. This assay has been validated pursuant to the CLIA regulations and is used for clinical purposes. For additional information, please refer to https://education.Hytle/faq/SLB487 (This link is being provided for information/ educational purposes only.) 12/02/2023 4:42 PM CDT 12/03/2023 4:33 AM CDT Vaishali Drake MD LAB MICROBIOLOGY - GENERAL ORDERABLES Final Result Performing Organization Address [facility] Co de Phone Number [facility] [address] [place] [address] from Last 3 Months or Most Recently Relevant to Health Maintenance Insurance [employer] ACCESS CHOICE BLUE [employer] OOS BLUE [employer] [place] ACCESS CHOICE IDPA CIG OPEN ACCESS [employer] Care Teams Armed Custom Protection Officer Relationship Specialty Start Date End Date Carlotta Degroot NP [address] [place] [address] PCP - General Internal Medicine 11/21/23
--- OUTSIDE RECORDS SUMMARY | 2024-07-20 17:08 | XMS_ITS | Clinical Summary ---
Author Organization [facility] Address [address] [place] [address] Care Team Providers Care Paint Grinder Name Role Phone Carlotta Degroot NP Primary Care Provider [phone] Allergies Active Allergy Reactions Criticality Noted Date [...] SI She goes through Carlotta Degroot at [facility]. SVT (supraventricular tachycardia) 10/16/2022 Assessment & Plan (12/02/2023 3:22 PM CDT): She has a h/o palpations. She has done holter monitor before The last was about 3 months ago Will see if she can see Dr. Leal during If not, will refer to [facility]. Manic behavior 10/17/2021 Assessment & Plan (12/23/2023 2:19 PM SOCIAL WORKER DELINQUENCY PREVENTION): She is going to continue on with [...] to converse. Verified that she has appt w/[facility] ATTENDANT 11/20/21. Verified that she will go to [...] No longer seeing counselor but still sees psychologist chief Adair Yun at [facility] in [place]. MOP unable to control Shauna at this time during appt. Not tearful but flat/blunt affect. Denies thoughts of SI/HI on direct questioning. Assessment & Plan (10/09/2018 10:12 AM CDT): No longer seeing counselor. Still seeing psychologist chief: Adair Yun at [facility] in [place]. Difficulty taking medications per MOP confidentially on [...] 020 Assessment & Plan (12/25/2018 8:37 AM SOCIAL WORKER DELINQUENCY PREVENTION): Rapid flu swab: NEGATIVE This looks viral [...] vulnerable. Assessment & Plan (12/25/2018 8:37 AM SOCIAL WORKER DELINQUENCY PREVENTION): Discussed and the patient refuses immunization today. Educated regarding the need to vaccinate for personal protection and to limit the viruses in the community to protect those most vulnerable. Flu-like symptoms 12/24/2018 10/31/2019 Assessment & Plan (12/25/2018 8:37 AM SOCIAL WORKER DELINQUENCY PREVENTION): NEGATIVE rapid flu swab in office. 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 cancer cmt 12/02/23 Relation Name Status Comments [...] on file Legal Sex Female 11:47 AM SOCIAL WORKER DELINQUENCY PREVENTION Gender Identity Female 11/15/2021 7:51 PM CDT [...] Comments Blood Pressure 116/64 03/28/2024 12:44 PM SOCIAL WORKER DELINQUENCY PREVENTION Pulse 79 03/28/2024 12:44 PM SOCIAL WORKER DELINQUENCY PREVENTION Temperature 36.6 C (97.9 F) 03/28/2024 12:44 PM SOCIAL WORKER DELINQUENCY PREVENTION Respiratory Rate 18 03/28/2024 12:4 4 PM SOCIAL WORKER DELINQUENCY PREVENTION Oxygen Saturation 99% 03/28/2024 12: 44 PM SOCIAL WORKER DELINQUENCY PREVENTION Inhaled Oxygen Concentration - - Weight 61.1 kg (134 lb 12.8 oz) 025 12:44 PM SOCIAL WORKER DELINQUENCY PREVENTION Height 157.5 cm (5' 2) 03/28/2024 12:4 4 PM SOCIAL WORKER DELINQUENCY PREVENTION Body Mass Index 24.66 03/28/2024 12:44 PM SOCIAL WORKER DELINQUENCY PREVENTION Plan of Treatment Health Maintenance Due Date [...] HEPATITIS C ANTIBODY Routine 02/26/2024 2:51 PM SOCIAL WORKER DELINQUENCY PREVENTION N. GONORRHOEAE/C. TRACHOMATIS AMPLIFICATION Routine 12/02/2023 4:42 PM CDT PAP, REFLEX HPV Routine 12/02/2023 4:42 PM CDT Encounter for supervision of normal first in first trimester from Last 3 Months or Most Recently Relevant to Health Maintenance Results * (ABNORMAL) Differential, auto (05/13/2024 2:42 PM CDT) Neutrophil abs 10.48(H) 1.50 - 6.50 K/cumm Comment:Testing performed by : [facility], [address] [place] [address]., [address] Imm gran abs 0.23(H) 0.00 - 0.10 K/cumm [facility] (AD[facility]) Comment:Testing performed by : [address] [address] Lymphocyte abs 2.40 0.80 - 3.30 K/cumm [facility] (AD[facility]) Comment:Testing performed by : [address] [address] Monocyte abs 0.85(H) 0.20 - 0.80 K/cumm [facility] ([facility]) Comment:Testing performed by : [address], [address] Eosinophil abs 0.07 0.00 - 0.50 K/cumm [facility] ([facility]) Comment:Testing performed by : [facility], [address] [place] [address]., [address] Basophil abs 0.07 0.00 - 0.10 K/cumm [facility] ([facility]) Comment:Testing performed by : [facility], [address] [place] [address]., [address] Neutrophil pct 74.4 % [facility] ([facility]) Comment: Interpretive Data Percent cell count reference ranges are not reported, since discordance with absolute values may lead to misinterpretation of CBC data. Current Interpretive Data was last revised on 2017. Testing performed by: [facility], [address] [place] [address]., [address] Imm gran pct 1.6 % [facility] (AD[facility]) Comment: Interpretive Data Percent cell count reference ranges are not reported, since discordance with absolute values may lead to misinterpretation of CBC data. Current Interpretive Data was last revised on 2017. Testing performed by: [facility], [address] [place] [address]., [address] Lymphocyte pct 17.0 % [facility] ([facility]) Comment: Interpretive Data Percent cell count reference ranges are not reported, since discordance with absolute values may lead to misinterpretation of CBC data. Current Interpretive Data was last revised on 2017. Testing performed by: [facility], [address] [place] [address]., [address] Monocyte pct 6.0 % [facility] ([facility]) Comment: Interpretive Data Percent cell count reference ranges are not reported, since discordance with absolute values may lead to misinterpretation of CBC data. Current Interpretive Data was last revised on 2017. Testing performed by: [address] [address] Eosinophil pct 0.5 % [facility] ([facility]) Comment: Interpretive Data Percent cell count reference ranges are not reported, since discordance with absolute values may lead to misinterpretation of CBC data. Current Interpretive Data was last revised on 2017. Testing performed by: [address] [address] Basophil pct 0.5 % [facility] ([facility]) Comment: Interpretive Data Percent cell count reference ranges are not reported, since discordance with absolute values may lead to misinterpretation of CBC data. Current Interpretive Data was last revised on 2017. Testing performed by: [address] [address] Blood 05/13/2024 2:42 PM CDT 05/13/2024 8:10 PM CDT Dorita Valdes MD LAB BLOOD ORDERABLES Fin al Result Performing Organization Address [facility] de Phone Number OVI LUNDBERG (GARNER) [address] [place] [address] * HIV 1/2 Antibody plus p24 Antigen Blood (05/13/2024 2:42 PM CDT) Pathologist [facility] HIV 1/2 ab + p24 ag Nonreactive Nonreactive Comment: Nonreactive for HIV-1 antigen and HIV-1/HIV-2 antibodies. No laboratory evidence of HIV infection. If acute HIV infection is suspected, consider testing for HIV-1 RNA. Testing performed by: [address], [address] Blood 05/13/2024 2:42 PM CDT 05/13/2024 7:45 PM CDT Dorita Valdes MD LAB MICROBIOLOGY - GENER AL ORDERABLES Final Result Performing Organization Address [facility] de Phone Number OVI LUNDBERG (ADAN) [address] [facility] [place] [address] * (ABNORMAL) CBC with auto differential (05/13/2024 2:42 PM CDT) Pathologist [facility] WBC 14.10(H) 3.80 - 9.90 K/cumm Comment:Testing performed by : [address] [address] Hgb 13.3 11.9 - 15.5 g/dL OVI TAMIKA (ADAN) Comment:Testing performed by : [address], [address] Hct 40.2 35.6 - 45.5 % [facility] ([facility]) Comment:Testing performed by : [facility], [address] [place] [address], [address] Plt 303 150 - 400 K/cumm [facility] ([facility]) Comment:Testing performed by : [address], [address] MPV 10.5 9.1 - 12.3 fL [facility] ([facility]) Comment:Testing performed by : [facility], [address] [place] [address], [address] RBC 3.98 3.90 - 5.20 M/cumm [facility] ([facility]) Comment:Testing performed by : [address], [address] MCV 101.0(H) 81.3 - 96.4 fL [facility] ([facility]) Comment:Testing performed by : [address], [address] MCH 33.4(H) 27.1 - 33.3 pg [facility] ([facility]) Comment:Testing performed by : [address], [address] MCHC 33.1 32.3 - 35.7 g/dL [facility] ([facility]) Comment:Testing performed by : [address], [address] RDW CV 13.2 11.1 - 14.9 % [facility] ([facility]) Comment:Testing performed by : [address], [address] RDW SD 49.6(H) 35.7 - 48.1 fL [facility] ([facility]) Comment:Testing performed by : [address], [address] NRBC abs 0.00 0.00 - 0.01 K/cumm [facility] ([facility]) Comment:Testing performed by : [address], [address] Blood 05/13/2024 2:42 PM CDT 05/13/2024 8:10 PM CDT us Dorita Valdes MD LAB BLOOD ORDERABLES Fin al Result Performing Organization Address City/[facility]/ZIP Co de Phone Number OVI LUNDBERG (GARNER) 1 [facility] [place] [address] * Vitamin D 25 hydroxy (05/13/2024 2:42 PM CDT) Pathologist [facility] Vitamin D 25-OH 61 30 - 80 ng/mL Comment:Testing performed by : [facility], [address] [place] [address]., [address] Blood 05/13/2024 2:42 PM CDT 05/13/2024 8:10 PM CDT Dorita Valdes MD LAB BLOOD ORDERABLES Fin al Result Performing Organization Address [facility] Co de Phone Number OVI LUNDBERG (GARNER) [address] [facility] [place] [address] * RPR Blood (05/13/2024 2:42 PM CDT) Pathologist [facility] RPR Nonreactive Nonreactive Comment:Testing performed by : [facility], [address] [place] [address], [place]., [address] Blood 05/13/2024 2:42 PM CDT 05/13/2024 8:10 PM CDT Dorita Valdes MD LAB MICROBIOLOGY - GENER AL ORDERABLES Final Result Performing Organization Address City/[facility] Co de Phone Number OVI LUNDBERG (GARNER) 1 [facility] [place] [address] * Hepatitis C antibody Blood (02/26/2024 2:51 PM SOCIAL WORKER DELINQUENCY PREVENTION) Pathologist [facility] Hep C Ab Nonreactive Nonreactive Comment: Interpretive [...] revised on 2019. Testing performed by: [facility], [address] [place] [address], [place]., [address] Blood 02/26/2024 2:51 PM SOCIAL WORKER DELINQUENCY PREVENTION 02/26/2024 2:54 PM SOCIAL WORKER DELINQUENCY PREVENTION us Dorita Valdes MD LAB MICROBIOLOGY - GENER AL ORDERABLES Final Result OVI LUNDBERG (GARNER) 1 [facility] [place] [address] * (ABNORMAL) Pap, reflex HPV (12/02/2023 4:42 [...] clinical correlation and follow-up as clinically appropriate Prop Setter Que st Jewel Agosto Comment: PCM, CT(ASCP) CT Screening Location: [place] [address] [address] [place] [address] Pathologist Stephane Agosto Comment: John Ulloa M.D., [...] ORDERA BLES Final Result Performing Organization Address City/[facility]/ZIP Co de Phone Number [facility] [address] [place] [address] * N. gonorrhoeae/C. trachomatis Amplification (12/02/2023 4:42 PM CDT) C. trachomatis RNA NOT DETECTED NOT DETECTED [facility] [place] N. gonorrhoeae RNA NOT DETECTED NOT DETECTED [facility] [place] Comment [facility] [place] Comment: The analytical performance characteristics of this assay, when used to test SurePath(TM) specimens have been determined by [facility]. The modifications have not been cleared or approved by the FDA. This assay has been validated pursuant to the CLIA regulations and is used for clinical purposes. For additional information, please refer to https://education.[employer] Mobile/faq/PDN948 (This link is being provided for information/ educational purposes only.) 12/02/2023 4:42 PM CDT 12/03/2023 4:33 AM CDT Vaishali Drake MD LAB MICROBIOLOGY - GENERAL ORDERABLES Final Result Performing Organization Address [facility]/ZIP Co de Phone Number [facility] [address] [place] [address] from Last 3 Months or Most Recently Relevant to Health Maintenance Insurance ANTHEM ACCESS CHOICE [place] ANTHEM ACCESS CHOICE ID[place] CIG OPEN ACCESS CIG HEALTHCARE Care Teams Paint Grinder Relationship Specialty Start Date End Date Carlotta Degroot NP [address] [place] [address] PCP - General Internal Medicine 11/21/23
--- OUTSIDE RECORDS SUMMARY | 2024-07-20 17:08 | XMS_ITS | Clinical Summary ---
Author Organization [facility] Address [address] [place] [address] Care Team Providers Care Digital Retoucher Name Role Phone Komal Flores MD Primary Care Provider [phone] Source Comments [facility],non-owned Affiliates and Associated Physician Practices is amultiple site organization consisting of ambulatory clinics and hospital sitesin [place], [place], [place] and [place]. This disclosure is being madepursuant to the Care Everywhere program and may not contain all information available regarding this patient. Last updated 17.[facility] Allergies Active Allergy Reactions Criticality Noted Date [...] P M CDT Height 148.5 cm (4' 10.47) 06/04/2013 1:21 PM C DT Body Mass [...] topic Insurance MEDICAID - [place] Care Teams Digital Retoucher Relationship Specialty Start Date End Date Komal Flores MD [address] [place] [address] PCP - General Pediatrics 06/04/13
--- OUTSIDE RECORDS SUMMARY | 2024-07-20 17:08 | XMS_ITS | Patient Health Record ---
Author Organization [facility] Address [address] [place] [address] Care Team Providers Care Spring Crater Name Role Phone Jony Jenkins Primary Care Provider Allergies Allergen (clinical drug ingredient) Drug/Non Drug Allergy documented on EMR Reaction Allergy Type Onset Date Status dexmethylphenidate Focalin Unknown Drug Allergy Active Bee Sting Unknown Allergy Active Reason For Referral No Information Medications Medication SIG (Take, Route, Frequency, Duration) Notes Start Date End Date Status ARIPiprazole 2 MG 1 tablet Orally Once a day for 30 days 06/24/2024 Active Ferrous Sulfate 325 (65 Fe) MG 1 tablet Orally Three times a Week Active Promethazine HCl 12.5 MG 1 tablet as nee ded Orally every 6 hrs Active Mirtazapine 7.5 MG 1 tablet at bedtime Orally Once a day for 30 days 06/24/2024 Active Social History Tobacco Use: Social History [...] one half brother. Education: [employer]. Has been suspended multiple times starting in 7 th grade. Struggles with grades due to missing school. Has IEP. Has a safe plan at school when having anxiety attacks. : no Legal: mother reports supervisor meter shop had been called because she is trying to fight other kids Substance Use: used Marijuana in 7 th grade, last use was yesterday. Smokes day. Trauma: Physical: no Emotional: in relationships. Had been bullied in past Sexual: no Hobbies: likes to Kick Box, state she likes to smoke Never . Has 2 step-br others and one half brother. Education: [place] [employer]. Has been suspended multiple times starting in 7 th grade. Struggles with grades due to missing school. Has IEP. Has a safe plan at school when having anxiety attacks. : no Legal: mother reports supervisor meter shop had been called because she is trying to fight other kids Substance Use: used Marijuana in 7 th grade, last use was yesterday. Smokes day. Trauma: Physical: no Emotional: in relationships. Had been bullied in past Sexual: no Hobbies: likes to Kick Box, state she likes to smoke Never . Has 2 step-br others and one half brother. Education: [place] [employer]. Has been suspended multiple times starting in 7 th grade. Struggles with grades due to missing school. Has IEP. Has a safe plan at school when having anxiety attacks. : no Legal: mother reports supervisor meter shop had been called because she is trying to fight other kids Substance Use: used Marijuana in 7 th grade, last use was yesterday. Smokes day. Trauma: Physical: no Emotional: in relationships. Had been bullied in past Sexual: no Hobbies: likes to Kick Box, state she likes to smoke Never . Has 2 step-br others and one half brother. Education: [place] [employer]. Has been suspended multiple times starting in 7 th grade. Struggles with grades due to missing school. Has IEP. Has a safe plan at school when having anxiety attacks. : no Legal: mother reports supervisor meter shop had been called because she is trying to fight other kids Substance Use: used Marijuana in 7 th grade, last use was yesterday. Smokes day. Trauma: Physical: no Emotional: in relationships. Had been bullied in past Sexual: no Hobbies: likes to Kick Box, state she likes to smoke Never . Has 2 step-br others and one half brother. Education: [place] [employer]. Has been suspended multiple times starting in 7 th grade. Struggles with grades due to missing school. Has IEP. Has a safe plan at school when having anxiety attacks. : no Legal: mother reports supervisor meter shop had been called because she is trying [...] Problem Status W/U Status Risk Notes Problem [id number] Bipolar disorder , current episode depressed, moderate (F31.32) Active confirmed Problem Borderline personality disorder (90898173) Borderline personality disorder (F60.3) Active confirmed Problem Depression (974130711) Depression (F32.9) Active confirmed Problem Anxiety (27267816) Anxiety (F41.9) Active confirmed Problem Bipolar 1 disorder (120485991) Bipolar 1 disorder (F31.9) Active confirmed Problem Thyroid disorder screening (357427015) Screening for thyroid disorder (Z13.29) Active confirmed Problem Diabetes mellitus screening (443163734) Screening for diabetes mellitus (Z13.1) Active confirmed Problem Difficulty sleeping (298328285) Difficulty sleeping (G47.9) Active confirmed Problem Bipolar affective disorder, currently manic, moderate (992028035) Bipolar 1 disorder with moderate maryam (F31.12) Active confirmed Problem Nicotine dependence (50650721) Nicotine dependence (F17.200) Active confirmed Problem Hyperlipidemia screening (769665606) Screening for hyperlipidemia (Z13.220) Active confirmed Vital Signs Height 62 in 06/24/2024 Weight 125 lbs 06/24/2024 BMI 22.86 kg/m2 06/24/2024 Encounters Encounter Location Date Provider Diagnosis [address] [place] [address] 05/27/2024 Jony Jenkins [address] [facility] [place] [address] 06/24/2024 Jony Jenkins Borderline personali ty disorder F60.3 ; Anxiety F41.9 ; Depression F32.9 ; Difficulty sleeping G47.9 and Nicotine dependence F17.[address] [place] [address] 05/27/2024 Jony Jenkins Borderline personali ty disorder F60.3 ; Anxiety F41.9 ; Depression F32.9 ; Difficulty sleeping G47.9 ; Nicotine dependence F17.200 ; Screening for thyroid disorder Z13.29 ; Screening for hyperlipidemia Z13.220 and Screening for diabetes mellitus Z13.1 Assessments Encounter Date Diagnosis (ICD Code) Assessment Notes Treatment Notes Treatment Clinical Notes Section Notes 06/24/2024 Borderline personality disorder (ICD-10 - F60.3) Duration (acute/chronic), stability (controlled/uncon trolled): Chronic, uncontrolled Current medications/effic acy: Somewhat, room for improvement Previous medication trials: aripiprazole, Risperidone (made mood worse and urinary incontinence), Latuda (emesis), Trazodone (ineffective), Celexa, Lexapro (suicidal on SSRIs), Focalin (allergy), Strattera(ineffec tive), Adderall, Cymbalta, Hydroxyzine (ineffective), Buspar (anxiety), Gunfacine, lamotrigine (increased irritability) Current/previous therapies: Denies current therapy, I probably should. - previously followed up with therapy, usually quits about 3-4 sessions in due to feeling overwhelmed (leaving for the appointment is overwhelming) Examination as documented - see pertinent aspects of office visit documentation. Pertinent diagnostics: LAB ORDERS PREVIOUSLY FAXED TO [facility] OFFICE IN [place] PER PATIENT REQUEST, SEE TELEPHONE COMMUNICATION - NO DOCUMENT/RESULTS FOUND IN CHART Differential diagnoses: possible co-occurring mood disorder due to previous intermittent periods of decreased sleep times about 3 days, see HPI RECOMMENDATIONS: STOP lamotrigine due to increased irritability and START aripiprazole as prescribed to assist with mood/stability - educated patient/guardian on adverse effects, risks and benefits, as well as alternative treatments STOP quetiapine due to oversedation and START mirtazapine as prescribed to assist with sleep - [...] to the emergency department, or contact the [facility] Crisis Unit/Team. Follow up as scheduled in 4 weeks or sooner if necessary. Follow up with PCP and/or other specialists as advised. NEXT STEP: Review lab results. Consider increasing lamotrigine. Consider increasing quetiapine. Consider other medication adjustments as needed. 06/24/2024 Anxiety (ICD-10 - F41.9) See assessment and plan for BPD 05/27/2024 Borderline personality disorder (ICD-10 - F60.3) [...] COLLECTION, REQUESTING ORDERS TO BE FAXED TO [facility] OFFICE IN [place], SEE TELEPHONE COMMUNICATION Differential diagnoses: possible co-occurring [...] to the emergency department, or contact the [facility] Crisis Unit/Team. Follow up as scheduled in 4 weeks or sooner if necessary. Follow up with PCP and/or other specialists as advised. NEXT STEP: Review lab results. Consider increasing lamotrigine. Consider increasing quetiapine. Consider other medication adjustments as needed. 05/27/2024 Anxiety (ICD-10 - F41.9) See assessment and plan for BPD 06/24/2024 Depression (ICD-10 - F32.9) See assessment and plan for BPD 06/24/2024 Difficulty sleeping (ICD-10 - G47.9) See assessment and plan for BPD 05/27/2024 Depression (ICD-10 - F32.9) See assessment and plan for BPD 06/24/2024 Nicotine dependence (ICD-10 - F17.200) Duration (acute/chronic), stability (controlled/uncon trolled): Vapes, daily, has been vaping since about 9th grade - prior to vaping, would smoking cigarettes sporadically, once every few weeks (cigarette butts out of the [employer]ington tray) Current medications/effic acy: N/A Previous medication trials: N/A RECOMMENDATIONS: Consider substance cessation therapy as needed - contact office if desiring medication assisted therapy. Manage co-morbid conditions. Continue monitoring symptoms - report persistent or worsening/concern ing symptoms to the office or go to the ER. For mental health CRISIS, please reach out to [phone] ([facility] Suicide and Crisis Lifeline), 911, go to the emergency department, or contact the [facility] Crisis Unit/Team. Follow up as scheduled or sooner if necessary. Follow up with PCP and/or other specialists as advised. NEXT STEP: Consider MAT as needed. 05/27/2024 Difficulty sleeping (ICD-10 - G47.9) See [...] health CRISIS, please reach out to [phone] ([facility] Suicide and Crisis [facility]), 911, go to the emergency department, or contact the [facility] Crisis Unit/Team. Follow up as scheduled or sooner if necessary. Follow up with PCP and/or other specialists as advised. NEXT STEP: Consider MAT as needed. 05/27/2024 Screening for thyroid disorder (ICD-10 - Z13.29) See above assessment and plans 05/27/2024 Screening for hyperlipidemia (ICD-10 - Z13.220) See above assessment and plans 05/27/2024 Screening for diabetes mellitus (ICD-10 - Z13.1) See above assessment and plans 06/24/2024 Other See above assessment and plans See above assessment and plans See above assessment and plans Plan Of Treatment Next Appt Details Provider Name:Jony Jenkins, 07/22/2024 03:20:00 PM, [address] [facility], [place], [address], Insurance Providers Payer Name Payer Address Payer Phone Subscriber Number Group Number Insured Name Patient Relationship to Insured Coverage Start Date Coverage End Date MEDICAID [address] [place] [phone] [id number] Gerri Dang Parent 4 Medical (General) History Medical History History ICD Code T & A at age 7 R eye hemorrhage 01/2020 Surgical History Surgery Date(Month/Year) Tonsillectomy and adenoidectomy 2008 Hospitalization History Reason Date(Month/Year) OD took #80 celexa pills 2017? MH at [facility] 03/2018
--- OUTSIDE RECORDS SUMMARY | 2024-07-20 17:08 | XMS_ITS | Encounter Summary ---
Author Organization [facility] Address [address] [place] [address] Phone Care Team Providers Care Foil Stamp Operator Name Role Phone Mitchel Woods MD Primary Care Provider [phone] Carlotta Degroot NP Primary Care Provider [phone] Encounter Details Date Type Department Care Team (Late st Contact Info) Description 02/06/2020 Ophth Exam [facility] Ophthalmology [address] [place] [address] [address] [place] [address] Darrion Robert MD [address] [place], [place] [id number] Social History Tobacco Use Types Packs/Day Years Used Date Smoking Tobacco: Never Smokeless Tobacco: Never Alcohol Use Standard Drinks/Week Comments No 0 (1 standard drink = 0.6 oz pur e alcohol) PHQ-2 Answer Date Recorded PHQ-2 Total Score 0 11/01/2019 Comments No Sex and Gender Information Value Date Recorded Sex Assigned at Not on file Legal Sex Female 11:47 AM ASSESSMENT CONSULTANT Gender Identity Female 11/15/2021 7:51 PM CDT Sexual Orientation Straight 11/15/2021 7: 51 PM CDT documented as of this encounter Plan of Treatment Not on file documented as of this encounter Visit Diagnoses Not on filedocumented in this encounter Additional Health Concerns Infection Onset Date Last Indicated Resolved Time COVID: Suspected 03/28/2024 03/28/2024 03/28/2024 1:02 PM ASSESSMENT CONSULTANT COVID19 03/28/2024 03/28/2024 04/07/2024 3:07 AM ASSESSMENT CONSULTANT COVID: Recovered Comment:Added based on recent COVID infection. 04/07/2024 05/13/2024 07/06/2024 7:27 PM C DT documented as of this encounter Eye Exam [...] heme, attached 360 w/o RD/RT Care Teams Foil Stamp Operator Relationship Specialty Start Date End Date Mitchel Woods MD [address] [place] [address] PCP - General Family Medicine 03/25/17 11/20/23 Carlotta Degroot NP [address] [facility] [place] [address] PCP - General Internal Medicine 11/21/23 documented as of this encounter
[2024-07-20 17:13] LABS: Beta HCG Quantitative < 2.39 mIU/ML; Prothrombin Time 13.4 Seconds (11.1-14.7)
[2024-07-20 17:14] LABS: Partial Thromboplastin Time 32.2 Seconds (22.3-36.8)
[2024-07-20 18:20] VITALS: BP 132/77; PULSE 66; RESP 16; O2SAT 100
== END 2024-07-20 18:36 | disposition home or self-care (01) ==
PROVIDERS: Emergency Provider Emergency Medicine
DX: N93.9 Abnormal uterine and vaginal bleeding, unspecified (principal); F17.290 Nicotine dependence, other tobacco product, uncomplicated
CPT/HCPCS: 36415; 76856; 80053; 83735; 84702; 85025; 85610; 85730; 86850; 86900; 86901; 99284